=== PATIENT | female | born 1945 | race Caucasian/White ===

== ENCOUNTER → 2017-07-12 10:32 | Outpatient (CLI) | payer MEDICARE, SELFPAY ==
[2017-07-12 13:15] LABS: Absolute Lymphocyte Count 1.25 X10^3/ul (0.83-4.51); Basophil# 0.06 X10^3/uL; Eosinophil# 0.24 X10^3/uL; Hematocrit 39.4 % (37-47); Hemoglobin 12.8 g/dl (12.0-15.0); Lymphocyte # 1.25 X10^3/ul (4.0); Lymphocyte % 20.8 % (19-41); Mean Corp Hgb Conc 32.5 g/gl (32-36); Mean Corpuscular Hgb 28.5 pg (27.0-32.0); Mean Corpuscular Volume 87.8 fL (81-99); Mean Platelet Vol. 12.2 fl (6.2-12.0); Monocyte# 0.49 X10^3/uL; Monocyte% 8.1 % (0-10); Neutrophil # 3.97 X10^3/uL (2.7-7.7); Neutrophil % 65.9 % (47-70); Platelet Count 254 K/mm3 (150-450); RBC Distribution Width CV 15.1 % (11.6-14.6); RBC Distribution Width SD 47.8 fl (35.1-43.9); Red Blood Count 4.49 M/mm3 (4.2-5.4)
[2017-07-12 13:16] LABS: POSITIVE COUNT NO; POSITIVE DIFFERENTIAL NO; POSITIVE MORPHOLOGY NO
[2017-07-12 13:42] LABS: ALB/GLOB Ratio 0.9 RATIO (0.9-2.4); AST(SGOT) 50 U/L (15-37); Alanine Aminotransfer ALT/SGPT 43 U/L (12-78); Albumin, Serum 3.5 g/dL (3.4-5.0); Alkaline Phosphatase 98 U/L (45-117); Anion Gap 9 (5-15); BUN 20 mg/dL (7-18); BUN/Creat Ratio 23.4 RATIO (10-20); Calcium,Total 9.4 mg/dL (8.5-10.1); Chloride 105 mmol/L (98-107); Creatinine, Serum 0.86 mg/dL (0.55-1.02); EST Glomerular Filtration Rate 69 mL/min (>60); Est Glom Filt Rate - Afr Amer 84 mL/min (>60); Glucose 83 mg/dL (70-110); Potassium 3.6 mmol/L (3.5-5.1); Protein, Total 7.5 g/dL (6.4-8.2); Sodium Level 140 mmol/L (136-145); Thyroid Stim Hormone (TSH) 2.92 uIU/mL (0.358-3.74)
== END ==
PROVIDERS: Family Provider Family Medicine Geriatric Medicine; PCP Family Medicine Geriatric Medicine; Visit Provider Family Medicine Geriatric Medicine
DX: I10 Essential (primary) hypertension (principal)
CPT/HCPCS: 36415; 80053; 84443; 85025

== ENCOUNTER → 2017-08-08 09:14 | Outpatient (CLI) | payer MEDICARE, SELFPAY ==
--- NOTE | 2017-08-08 09:19 | HPBI_ITS ---
MAMMOGRAPHY - BILATERAL SCREENING REASON FOR EXAM: Female, 72 years old. Routine annual screening examination. PERTINENT HISTORY: Non-contributory. TECHNIQUE: Digital bilateral breast bao (3D mammographic acquisition) in the CC and MLO projections. 2-D mediolateral oblique (MLO) and craniocaudad (CC) views of both breasts were obtained. CAD: Full Field Digital Mammography with Computer Added Detection was performed. COMPARISON: Comparison is made with prior study dated August 08, 2016 and July 28, 2015. FINDINGS: Breast Composition: There are scattered areas of fibroglandular density. There are no dominant masses or suspicious calcifications. No other significant abnormalities are identified. There has been no significant change since the prior study. HPBI/SCREENING MAMM (CAD), BILAT IMPRESSION: Stable bilateral screening mammogram. Yearly follow-up mammogram recommended. (A) ASSESSMENT CATEGORY: BIRADS Category 1: Negative. A letter regarding these results will be sent to the patient by the facility within 30 days. Approximately 10% of breast cancers are not detected by mammography. A normal mammogram should not delay biopsy of a clinically suspicious abnormality. [id number] Electronically Signed: Stephane Yates MD at 10:49 EST Tel [phone], Service support ,
--- NOTE | 2017-08-08 09:20 | HPBD_ITS ---
STUDY: DUAL ENERGY X-RAY ABSORPTIOMETRY / DXA REASON FOR EXAM: Female, 72 years old. The patient is postmenopausal. Loss of height of 1.5 inches. TECHNIQUE: Bone Mineral Density (BMD) measurements of lumbar spine and bilateral hips were obtained. COMPARISON: Comparison is made with prior study dated December 03, 2001. FINDINGS: Lumbar Spine (L1-L4): g/cm2 (0.819) / T-score (-3.0) / Z-score (-1.3) Findings are suggestive of osteopenia with a high fracture risk. Increased thoracic kyphosis. Left Femur Total: g/cm2 (0.803) / T-score (-1.6) / Z-score (0.0) Left Femoral Neck: g/cm2 (0.777) / T-score (-1.9) / Z-score (0.0) Right Femur Total: g/cm2 (0.790) / T-score (-1.7) / Z-score (-0.1) Right Femoral Neck: g/cm2 (0.749) / T-score (-2.1) / Z-score (-0.3) The T-Scores on the most recent prior examination were: Lumbar Spine (L1-L4): There has been worsening of bone density since the previous examination. Left Femur Total: which represents a worsening of 3.8%. HPBD/Dexa Bone Density Study (HP) IMPRESSION: The patient is considered osteoporotic at the level of the lumbar spine as outlined below according to World Arnaldo Organization (WHO) criteria with a high fracture risk. There has been worsening of bone density since the previous examination. Reference Information: The T-score is the number of standard deviations above or below the standard which is normal for young adults at their peak bone mineral density. The World Health Organization (WHO) interprets the T-scores as follows: Above -1 Normal bone density Between -1 and -2.5 Osteopenia Equal to / or below -2.5 Osteoporosis As a practical clinical guideline, osteopenia may be graded as follows: Mild -1 through -1.5 Moderate -1.6 through -2.0 Severe -2.1 through -2.4 The Z-score is the number of standard deviations above or below age-matched controls. A Z-score of less than -1.5 would be considered abnormal. References: 1. NIH Osteoporosis and Related Bone Diseases http://www.osteo.org 2. International Society for Clinical Densitometry http://www.iscd.org 3. National Osteoporosis Foundation http://www.nof.org Electronically Signed: Stephane Yates MD at 9:51 EST Tel [phone], Service support ,
== END ==
PROVIDERS: Family Provider Family Medicine Geriatric Medicine; PCP Family Medicine Geriatric Medicine; Visit Provider Family Medicine Geriatric Medicine
DX: Z12.31 Encounter for screening mammogram for malignant neoplasm of breast (principal); Z78.0 Asymptomatic menopausal state; M81.0 Age-related osteoporosis without current pathological fracture
CPT/HCPCS: 77063; 77067; 77080

== ENCOUNTER → 2018-01-10 11:32 | Outpatient (CLI) | payer MEDICARE, SELFPAY ==
[2018-01-10 12:37] LABS: Absolute Lymphocyte Count 1.57 X10^3/ul (0.83-4.51); Absolute Neutrophil Count 4.6 X10^3/uL (2.0-7.7); Basophil# 0.03 X10^3/uL; Basophil% 0.4 % (0-1); Eosinophils% 1.5 % (0-5); Hematocrit 39.9 % (37-47); Hemoglobin 13.1 g/dl (12.0-15.0); Lymphocyte # 1.57 X10^3/ul (4.0); Lymphocyte % 23.1 % (19-41); Mean Corp Hgb Conc 32.8 g/gl (32-36); Mean Corpuscular Hgb 28.7 pg (27.0-32.0); Mean Corpuscular Volume 87.5 fL (81-99); Mean Platelet Vol. 11.8 fl (6.2-12.0); Monocyte# 0.48 X10^3/uL; Neutrophil # 4.62 X10^3/uL (2.7-7.7); Neutrophil % 67.9 % (47-70); POSITIVE COUNT NO; POSITIVE DIFFERENTIAL NO; POSITIVE MORPHOLOGY NO; Platelet Count 246 K/mm3 (150-450); RBC Distribution Width SD 47.8 fl (35.1-43.9); Red Blood Count 4.56 M/mm3 (4.2-5.4); White Blood Count 6.8 K/mm3 (4.4-11.0)
[2018-01-10 12:58] LABS: ALB/GLOB Ratio 0.8 RATIO (0.9-2.4); AST(SGOT) 45 U/L (15-37); Alanine Aminotransfer ALT/SGPT 33 U/L (13-56); Albumin, Serum 3.7 g/dL (3.2-5.0); Alkaline Phosphatase 98 U/L (45-117); Anion Gap 8 (5-15); BUN 23 mg/dL (7-18); BUN/Creat Ratio 23.3 RATIO (10-20); Calcium,Total 9.6 mg/dL (8.5-10.1); Chloride 103 mmol/L (98-107); Creatinine, Serum 0.99 mg/dL (0.55-1.02); EST Glomerular Filtration Rate 59 mL/min (>60); Est Glom Filt Rate - Afr Amer 71 mL/min (>60); Globulin 4.5 g/dL (2.2-4.2); Glucose 100 mg/dL (74-106); Potassium 3.7 mmol/L (3.5-5.1); Protein, Total 8.2 g/dL (6.4-8.2); Sodium Level 141 mmol/L (136-145); Thyroid Stim Hormone (TSH) 2.37 uIU/mL (0.358-3.74)
[2018-01-11 10:16] LABS: Vitamin D,25 Hydroxy 40.1 ng/mL (29.95-100.01)
[2018-01-12 09:25] LABS: Hep C Antibodies 0.2 s/co ratio (0.0-0.9)
== END ==
PROVIDERS: Family Provider Family Medicine Geriatric Medicine; PCP Family Medicine Geriatric Medicine; Visit Provider Family Medicine Geriatric Medicine
DX: E11.9 Type 2 diabetes mellitus without complications (principal); I10 Essential (primary) hypertension; E55.9 Vitamin D deficiency, unspecified
CPT/HCPCS: 36415; 80053; 82306; 84443; 85025; 86803

== ENCOUNTER → 2018-07-11 11:07 | Outpatient (CLI) | payer MEDICARE, SELFPAY ==
[2018-07-11 12:46] LABS: Absolute Lymphocyte Count 1.26 X10^3/ul (0.83-4.51); Absolute Neutrophil Count 3.2 X10^3/uL (2.0-7.7); Basophil# 0.03 X10^3/uL; Basophil% 0.6 % (0-1); Eosinophil# 0.15 X10^3/uL; Eosinophils% 2.9 % (0-5); Hematocrit 39.3 % (37-47); Hemoglobin 12.7 g/dl (12.0-15.0); Lymphocyte # 1.26 X10^3/ul (4.0); Lymphocyte % 24.3 % (19-41); Mean Corp Hgb Conc 32.3 g/gl (32-36); Mean Corpuscular Hgb 28.7 pg (27.0-32.0); Mean Corpuscular Volume 88.7 fL (81-99); Mean Platelet Vol. 12.2 fl (6.2-12.0); Monocyte# 0.53 X10^3/uL; Monocyte% 10.2 % (0-10); Neutrophil % 61.8 % (47-70); Platelet Count 230 K/mm3 (150-450); RBC Distribution Width CV 15.1 % (11.6-14.6); RBC Distribution Width SD 49.1 fl (35.1-43.9); Red Blood Count 4.43 M/mm3 (4.2-5.4); White Blood Count 5.2 K/mm3 (4.4-11.0)
[2018-07-11 12:49] LABS: POSITIVE COUNT NO; POSITIVE DIFFERENTIAL NO; POSITIVE MORPHOLOGY NO
[2018-07-11 12:56] LABS: Vitamin D,25 Hydroxy 41.1 ng/mL (29.95-100.01)
[2018-07-11 13:03] LABS: ALB/GLOB Ratio 0.9 RATIO (0.9-2.4); AST(SGOT) 34 U/L (15-37); Alanine Aminotransfer ALT/SGPT 32 U/L (13-56); Albumin, Serum 3.7 g/dL (3.2-5.0); Alkaline Phosphatase 84 U/L (45-117); Anion Gap 10 (5-15); BUN 18 mg/dL (7-18); Calcium,Total 9.5 mg/dL (8.5-10.1); Chloride 107 mmol/L (98-107); Creatinine, Serum 0.86 mg/dL (0.55-1.02); EST Glomerular Filtration Rate 69 mL/min (>60); Est Glom Filt Rate - Afr Amer 83 mL/min (>60); Globulin 3.9 g/dL (2.2-4.2); Glucose 80 mg/dL (74-106); Potassium 3.5 mmol/L (3.5-5.1); Protein, Total 7.6 g/dL (6.4-8.2); Sodium Level 141 mmol/L (136-145); Thyroid Stim Hormone (TSH) 2.98 uIU/mL (0.358-3.74)
== END ==
PROVIDERS: Family Provider Family Medicine Geriatric Medicine; PCP Family Medicine Geriatric Medicine; Visit Provider Family Medicine Geriatric Medicine
DX: I10 Essential (primary) hypertension (principal); E55.9 Vitamin D deficiency, unspecified
CPT/HCPCS: 36415; 80053; 82306; 84443; 85025

== ENCOUNTER → 2018-08-30 10:22 | Outpatient (CLI) | payer MEDICARE, SELFPAY ==
[2017-11-09 08:06] VITALS: BMI 25.4
--- NOTE | 2018-08-30 10:26 | BI_ITS ---
MAMMOGRAPHY - BILATERAL SCREENING REASON FOR EXAM: Female, 73 years old. Routine annual screening examination. PERTINENT HISTORY: Non-contributory. TECHNIQUE: Digital bilateral breast bao (3D mammographic acquisition) in the CC and MLO projections. 2-D mediolateral oblique (MLO) and craniocaudad (CC) views of both breasts were obtained. CAD: Full Field Digital Mammography with Computer Added Detection was performed. COMPARISON: Comparison is made with prior study dated August 08, 2017 and August 08, 2016. FINDINGS: Breast Composition: There are scattered areas of fibroglandular density. There are no dominant masses or suspicious calcifications. No other significant abnormalities are identified. There has been no significant change since the prior study. BI/SCREENING MAMM (CAD), BILAT IMPRESSION: Stable bilateral screening mammogram. Yearly follow-up mammogram recommended. (A) ASSESSMENT CATEGORY: BIRADS Category 1: Negative. A letter regarding these results will be sent to the patient by the facility within 30 days. Approximately 10% of breast cancers are not detected by mammography. A normal mammogram should not delay biopsy of a clinically suspicious abnormality. [id number] Electronically Signed: Stephane Yates, at 14:11 EDT , Service support ,
== END ==
PROVIDERS: Family Provider Family Medicine Geriatric Medicine; PCP Family Medicine Geriatric Medicine; Referring Provider Family Medicine Geriatric Medicine; Visit Provider Family Medicine Geriatric Medicine
DX: Z12.31 Encounter for screening mammogram for malignant neoplasm of breast (principal)
CPT/HCPCS: 77063; 77067

== ENCOUNTER → 2018-11-20 12:08 | Outpatient (CLI) | payer MEDICARE, SELFPAY ==
[2018-11-13 10:12] VITALS: BMI 25.4
--- NOTE | 2018-11-20 12:13 | RAD_ITS ---
STUDY: X-RAY - ABDOMEN/PELVIS REASON FOR EXAM: Female, 73 years old. Fecal impaction. TECHNIQUE: AP supine and upright views of the abdomen and pelvis. COMPARISON: 01/25/2016. FINDINGS: Normal visualized lung bases. Air-filled loops of both large and small bowel are seen. Some of the small bowel loops are dilated beyond normal limits to approximately 3.5 cm. The findings could be related to ileus but obstruction is also possible. Correlate clinically and consider follow-up. No air-fluid levels. No free air. The visualized liver, spleen and kidneys are grossly normal in size and morphology. Normal soft tissue structures. Normal visualized osseous structures. RAD/Abd Inc Decub and/or Erect IMPRESSION: Abnormal bowel gas pattern. Mild to moderate distention of small bowel loops. Findings could be ileus or obstruction. Electronically Signed: Sumit Jade MD at 23:04 EDT , Service support ,
== END ==
PROVIDERS: Family Provider Family Medicine Geriatric Medicine; PCP Family Medicine Geriatric Medicine; Referring Provider Family Medicine Geriatric Medicine; Visit Provider Family Medicine Geriatric Medicine
DX: K56.41 Fecal impaction (principal)
CPT/HCPCS: 74019

== ENCOUNTER → 2019-01-16 09:26 | Outpatient (CLI) | payer MEDICARE, SELFPAY ==
[2018-11-13 10:12] VITALS: BMI 25.4
[2019-01-16 13:14] LABS: Absolute Lymphocyte Count 1.52 X10^3/uL (0.83-4.51); Absolute Neutrophil Count 4.4 X10^3/uL (2.0-7.7); Basophil# 0.05 X10^3/uL; Basophil% 0.8 % (0-1); Eosinophil# 0.12 X10^3/uL; Eosinophils% 1.8 % (0-5); Hematocrit 40.3 % (37-47); Hemoglobin 13.2 g/dL (12.0-15.0); Lymphocyte # 1.52 X10^3/ul (4.0); Lymphocyte % 23.4 % (19-41); Mean Corp Hgb Conc 32.8 g/dL (32-36); Mean Corpuscular Hgb 29.1 pg (27.0-32.0); Mean Platelet Vol. 12.2 fl (6.2-12.0); Monocyte% 6.2 % (0-10); NRBC Flagged by Analyzer 0 % (0-5); Neutrophil # 4.38 X10^3/uL (2.7-7.7); Neutrophil % 67.5 % (47-70); Platelet Count 222 K/mm3 (150-450); RBC Distribution Width CV 14.3 % (11.6-14.6); RBC Distribution Width SD 46.6 fl (35.1-43.9); Red Blood Count 4.53 M/mm3 (4.2-5.4); White Blood Count 6.5 K/mm3 (4.4-11.0)
[2019-01-16 13:34] LABS: Vitamin D,25 Hydroxy 46.6 ng/mL (29.95-100.01)
[2019-01-16 13:38] LABS: ALB/GLOB Ratio 0.9 RATIO (0.9-2.4); AST(SGOT) 29 U/L (15-37); Alanine Aminotransfer ALT/SGPT 24 U/L (13-56); Albumin, Serum 3.7 g/dL (3.2-5.0); Alkaline Phosphatase 86 U/L (45-117); Anion Gap 6 (5-15); BUN 17 mg/dL (7-18); Calcium,Total 9.6 mg/dL (8.5-10.1); Chloride 104 mmol/L (98-107); Creatinine, Serum 0.94 mg/dL (0.55-1.02); EST Glomerular Filtration Rate 62 mL/min (>60); Est Glom Filt Rate - Afr Amer 75 mL/min (>60); Globulin 4.1 g/dL (2.2-4.2); Glucose 91 mg/dL (74-106); Potassium 3.9 mmol/L (3.5-5.1); Protein, Total 7.8 g/dL (6.4-8.2); Sodium Level 139 mmol/L (136-145)
== END ==
PROVIDERS: Family Provider Family Medicine Geriatric Medicine; PCP Family Medicine Geriatric Medicine; Visit Provider Family Medicine Geriatric Medicine
DX: I10 Essential (primary) hypertension (principal); E55.9 Vitamin D deficiency, unspecified
CPT/HCPCS: 36415; 80053; 82306; 84443; 85025

== ENCOUNTER → 2019-07-17 09:52 | Outpatient (CLI) | payer MEDICARE, SELFPAY ==
[2018-11-13 10:12] VITALS: BMI 25.4
[2019-07-17 12:26] LABS: Absolute Lymphocyte Count 1.39 X10^3/uL (0.83-4.51); Absolute Neutrophil Count 3.1 X10^3/uL (2.0-7.7); Basophil# 0.07 X10^3/uL; Basophil% 1.3 % (0-1); Eosinophil# 0.28 X10^3/uL; Eosinophils% 5.2 % (0-5); Hematocrit 38.7 % (37-47); Hemoglobin 12.5 g/dL (12.0-15.0); Lymphocyte # 1.39 X10^3/ul (4.0); Lymphocyte % 25.9 % (19-41); Mean Corp Hgb Conc 32.3 g/dL (32-36); Mean Corpuscular Hgb 28.1 pg (27.0-32.0); Mean Platelet Vol. 12.1 fl (6.2-12.0); Monocyte# 0.48 X10^3/uL; NRBC Flagged by Analyzer 0 % (0-5); Neutrophil # 3.13 X10^3/uL (2.7-7.7); Neutrophil % 58.4 % (47-70); Platelet Count 228 K/mm3 (150-450); RBC Distribution Width CV 14.8 % (11.6-14.6); RBC Distribution Width SD 47.2 fl (35.1-43.9); Red Blood Count 4.45 M/mm3 (4.2-5.4); White Blood Count 5.4 K/mm3 (4.4-11.0)
[2019-07-17 12:48] LABS: Vitamin D,25 Hydroxy 37.2 ng/mL (29.95-100.01)
[2019-07-17 13:01] LABS: ALB/GLOB Ratio 0.9 RATIO (0.9-2.4); AST(SGOT) 35 U/L (15-37); Alanine Aminotransfer ALT/SGPT 29 U/L (13-56); Albumin, Serum 3.6 g/dL (3.2-5.0); Alkaline Phosphatase 79 U/L (45-117); Anion Gap 8 (5-15); BUN 23 mg/dL (7-18); BUN/Creat Ratio 25.3 RATIO (10-20); Calcium,Total 9.3 mg/dL (8.5-10.1); Chloride 105 mmol/L (98-107); Creatinine, Serum 0.91 mg/dL (0.55-1.02); EST Glomerular Filtration Rate 64 mL/min (>60); Est Glom Filt Rate - Afr Amer 78 mL/min (>60); Globulin 4.2 g/dL (2.2-4.2); Glucose 92 mg/dL (74-106); Potassium 3.4 mmol/L (3.5-5.1); Protein, Total 7.8 g/dL (6.4-8.2); Sodium Level 139 mmol/L (136-145); Thyroid Stim Hormone (TSH) 2.32 uIU/mL (0.358-3.74)
== END ==
PROVIDERS: PCP Family Medicine Geriatric Medicine; Visit Provider Family Medicine Geriatric Medicine
DX: E55.9 Vitamin D deficiency, unspecified (principal); I10 Essential (primary) hypertension
CPT/HCPCS: 36415; 80053; 82306; 84443; 85025

== ENCOUNTER → 2019-07-28 09:24 | Outpatient (CLI) | payer MEDICARE, SELFPAY ==
[2018-11-13 10:12] VITALS: BMI 25.4
[2019-07-28 12:24] LABS: Anion Gap 7 (5-15); BUN 21 mg/dL (7-18); BUN/Creat Ratio 19.8 RATIO (10-20); Calcium,Total 9.9 mg/dL (8.5-10.1); Chloride 103 mmol/L (98-107); Creatinine, Serum 1.06 mg/dL (0.55-1.02); EST Glomerular Filtration Rate 54 mL/min (>60); Est Glom Filt Rate - Afr Amer 65 mL/min (>60); Glucose 94 mg/dL (74-106); Sodium Level 138 mmol/L (136-145)
== END ==
PROVIDERS: PCP Family Medicine Geriatric Medicine; Visit Provider Family Medicine Geriatric Medicine
DX: E87.6 Hypokalemia (principal)
CPT/HCPCS: 36415; 80048

== ENCOUNTER → 2019-09-01 09:46 | Outpatient (CLI) | payer MEDICARE, SELFPAY ==
[2018-11-13 10:12] VITALS: BMI 25.4
--- NOTE | 2019-09-01 09:46 | BI_ITS ---
MAMMOGRAPHY - BILATERAL SCREENING REASON FOR EXAM: Female, 74 years old. Routine annual screening examination. PERTINENT HISTORY: Non-contributory. TECHNIQUE: Digital bilateral breast [place] (3D mammographic acquisition) in the CC and MLO projections. 2-D mediolateral oblique (MLO) and craniocaudad (CC) views of both breasts were obtained. CAD: Full Field Digital Mammography with Computer Added Detection was performed. COMPARISON: Comparison is made with prior mammogram dated August 30, 2018 and August 08, 2017. FINDINGS: Breast Composition: There are scattered areas of fibroglandular density. There are no dominant masses or suspicious calcifications. No other significant abnormalities are identified. There has been no significant change since the prior study. BI/SCREEN MAMM (CAD) W/[place] BILAT IMPRESSION: Stable bilateral screening mammogram. Yearly follow-up mammogram recommended. (A) ASSESSMENT CATEGORY: BIRADS Category 1: Negative. A letter regarding these results will be sent to the patient by the facility within 30 days. Approximately 10% of breast cancers are not detected by mammography. A normal mammogram should not delay biopsy of a clinically suspicious abnormality. [id number] Electronically Signed: Stephane Yates, at 11:23 EDT , Service support ,
== END ==
PROVIDERS: Family Provider Family Medicine Geriatric Medicine; PCP Family Medicine Geriatric Medicine; Referring Provider Nurse Practitioner Women's Health; Visit Provider Nurse Practitioner Women's Health
DX: Z12.31 Encounter for screening mammogram for malignant neoplasm of breast (principal)
CPT/HCPCS: 77063; 77067

== ENCOUNTER → 2019-11-11 17:16 | Outpatient (CLI) | payer MEDICARE, SELFPAY ==
[2018-11-13 10:12] VITALS: BMI 25.4
--- NOTE | 2019-11-11 17:29 | RAD_ITS ---
STUDY: X-RAY - RIGHT SHOULDER REASON FOR EXAM: Female, 74 years old. Right shoulder pain for 2 months. Fall down stairs 4 years ago tearing rotator cuff. No surgery. TECHNIQUE: 4 view(s) of the shoulder. COMPARISON: None. FINDINGS: Normal glenohumeral articulation. Normal acromioclavicular joint. Normal acromion. Mild degenerative changes superior lateral aspect humeral head stable since the prior study. Faint linear density within the superior aspect of the shoulder joint is now present suggestive of calcific tendinitis. The soft tissue structures are unremarkable. Normal visualized pulmonary apex. RAD/Shoulder min 2 Views IMPRESSION: Mild degenerative changes of the right shoulder. New calcific tendinitis. Electronically Signed: Daniel Saucedo MD at 4:25 EDT , Service support ,
== END ==
PROVIDERS: PCP Family Medicine Geriatric Medicine; Referring Provider Family Medicine Geriatric Medicine; Visit Provider Family Medicine Geriatric Medicine
DX: M25.511 Pain in right shoulder (principal)
CPT/HCPCS: 73030

== ENCOUNTER → 2020-01-22 09:11 | Outpatient (CLI) | payer MEDICARE, SELFPAY ==
[2019-11-17 09:57] VITALS: BMI 25.4
[2020-01-22 12:28] LABS: Absolute Lymphocyte Count 1.28 X10^3/uL (0.83-4.51); Absolute Neutrophil Count 4.3 X10^3/uL (2.0-7.7); Basophil# 0.08 X10^3/uL; Basophil% 1.2 % (0-1); Eosinophil# 0.29 X10^3/uL; Eosinophils% 4.5 % (0-5); Hematocrit 40.2 % (37-47); Hemoglobin 12.8 g/dL (12.0-15.0); Lymphocyte # 1.28 X10^3/ul (4.0); Lymphocyte % 19.7 % (19-41); Mean Corp Hgb Conc 31.8 g/dL (32-36); Mean Corpuscular Hgb 28.8 pg (27.0-32.0); Mean Corpuscular Volume 90.5 fL (81-99); Mean Platelet Vol. 12.4 fl (6.2-12.0); Monocyte# 0.51 X10^3/uL; Monocyte% 7.9 % (0-10); NRBC Flagged by Analyzer 0 % (0-5); Neutrophil # 4.31 X10^3/uL (2.7-7.7); Neutrophil % 66.4 % (47-70); Platelet Count 227 K/mm3 (150-450); RBC Distribution Width CV 14.9 % (11.6-14.6); RBC Distribution Width SD 48.6 fl (35.1-43.9); Red Blood Count 4.44 M/mm3 (4.2-5.4); White Blood Count 6.5 K/mm3 (4.4-11.0)
[2020-01-22 12:33] LABS: Vitamin D,25 Hydroxy 52.4 ng/mL
[2020-01-22 12:39] LABS: ALB/GLOB Ratio 0.9 RATIO (0.9-2.4); AST(SGOT) 25 U/L (15-37); Alanine Aminotransfer ALT/SGPT 21 U/L (13-56); Albumin, Serum 3.7 g/dL (3.2-5.0); Alkaline Phosphatase 77 U/L (45-117); Anion Gap 5 (5-15); BUN 16 mg/dL (7-18); BUN/Creat Ratio 18.8 RATIO (10-20); Calcium,Total 9.4 mg/dL (8.5-10.1); Chloride 105 mmol/L (98-107); Creatinine, Serum 0.85 mg/dL (0.55-1.02); EST Glomerular Filtration Rate 69 mL/min (>60); Est Glom Filt Rate - Afr Amer 83 mL/min (>60); Glucose 99 mg/dL (74-106); Potassium 3.3 mmol/L (3.5-5.1); Protein, Total 7.7 g/dL (6.4-8.2); Sodium Level 140 mmol/L (136-145); Thyroid Stim Hormone (TSH) 1.98 uIU/mL (0.358-3.74)
== END ==
PROVIDERS: PCP Family Medicine Geriatric Medicine; Visit Provider Family Medicine Geriatric Medicine
DX: E55.9 Vitamin D deficiency, unspecified (principal); I10 Essential (primary) hypertension
CPT/HCPCS: 36415; 80053; 82306; 84443; 85025

== ENCOUNTER → 2020-02-03 11:12 | Outpatient (CLI) | payer MEDICARE, SELFPAY ==
[2019-11-17 09:57] VITALS: BMI 25.4
[2020-02-03 12:37] LABS: Anion Gap 5 (5-15); BUN 18 mg/dL (7-18); BUN/Creat Ratio 19.8 RATIO (10-20); Calcium,Total 9.4 mg/dL (8.5-10.1); Chloride 105 mmol/L (98-107); Creatinine, Serum 0.91 mg/dL (0.55-1.02); EST Glomerular Filtration Rate 64 mL/min (>60); Est Glom Filt Rate - Afr Amer 77 mL/min (>60); Glucose 95 mg/dL (74-106); Potassium 3.9 mmol/L (3.5-5.1); Sodium Level 138 mmol/L (136-145)
== END ==
PROVIDERS: PCP Family Medicine Geriatric Medicine; Visit Provider Family Medicine Geriatric Medicine
DX: E87.6 Hypokalemia (principal)
CPT/HCPCS: 36415; 80048

== ENCOUNTER → 2020-06-28 16:06 | Outpatient (CLI) | payer MEDICARE, SELFPAY ==
[2019-11-17 09:57] VITALS: BMI 25.4
--- NOTE | 2020-06-28 16:09 | RAD_ITS ---
STUDY: X-RAY - UNILATERAL RIBS ( RIGHT ) WITH CHEST REASON FOR EXAM: Female, 75 years old. Rt side pain. No known injury. TECHNIQUE - RIBS: 2 view(s) of the ribs. TECHNIQUE - CHEST: Single PA view of the chest. COMPARISON: None. FINDINGS - RIBS: Normal visualized ribs without a demonstrated fracture. FINDINGS - CHEST: The lungs are clear and expanded. There is no demonstrated pleural abnormality. Normal size heart. Normal mediastinum and florence. Normal visualized pulmonary arteries. Normal visualized aortic arch and descending thoracic aorta. Normal visualized thoracic spine. Normal visualized ribs, clavicles, and shoulders. There is no demonstrated abnormality of the visualized soft tissue structures of the upper abdomen. RAD/Ribs Uni Min 3V w/PA Chest IMPRESSION: RIBS: Normal x-ray examination of the ribs. CHEST: Normal x-ray examination of the chest. Electronically Signed: Jonny Ha MD at 9:05 EST Tel , Service support ,
--- NOTE | 2020-06-28 16:09 | RAD_ITS ---
STUDY: X-RAY - RIGHT SHOULDER REASON FOR EXAM: Female, 75 years old. Rt shoulder pain. No known injury. TECHNIQUE: 4 view(s) of the shoulder. COMPARISON: 11/11/2019 FINDINGS: Normal glenohumeral articulation. Normal acromioclavicular joint. Normal acromion. Normal humeral head and visualized proximal humerus. The soft tissue structures are unremarkable. Normal visualized pulmonary apex. RAD/Shoulder min 2 Views IMPRESSION: Normal x-ray examination of the shoulder. Electronically Signed: Jonny Ha MD at 9:07 EST Tel , Service support ,
== END ==
PROVIDERS: PCP Family Medicine Geriatric Medicine; Referring Provider Family Medicine Geriatric Medicine; Visit Provider Family Medicine Geriatric Medicine
DX: M25.511 Pain in right shoulder (principal); R10.9 Unspecified abdominal pain
CPT/HCPCS: 71101; 73030

== ENCOUNTER → 2020-07-22 11:22 | Outpatient (CLI) | payer MEDICARE, SELFPAY ==
[2019-11-17 09:57] VITALS: BMI 25.4
--- NOTE | 2020-07-22 11:35 | RAD_ITS ---
HISTORY: Fecal impaction for one week. Findings: The abdomen: Previous imaging of the abdomen is from November 30, 2018. A small focus of gas and minimal stool are present within the rectum consistent with absence of fecal impaction. The rectum is not distended with stool. There is minimal stool within the rectum. Air-fluid levels are present within some jejunal loops of small bowel within the upper left abdomen. These loops of bowel are not pathologically distended. Lung bases are clear. No acute osseous abnormality is perceived. Hyperostosis and facet arthropathy are present at the lower lumbar spine. RAD/Abd Inc Decub and/or Erect IMPRESSION: No fecal impaction. No abnormal bowel distention. No pneumatosis or free air. at 2221 Reported and signed by: Napoleon Vazquez MD Electronically Signed: Napoleon Vazquez MD at 22:19 EST Tel , Service support ,
[2020-07-22 12:08] LABS: Absolute Lymphocyte Count 1.12 X10^3/uL (0.83-4.51); Absolute Neutrophil Count 5.9 X10^3/uL (2.0-7.7); Basophil# 0.08 X10^3/uL; Eosinophil# 0.26 X10^3/uL; Eosinophils% 3.3 % (0-5); Hematocrit 39.2 % (37-47); Hemoglobin 12.8 g/dL (12.0-15.0); Lymphocyte # 1.12 X10^3/ul (4.0); Lymphocyte % 14.2 % (19-41); Mean Corp Hgb Conc 32.7 g/dL (32-36); Mean Corpuscular Hgb 29.6 pg (27.0-32.0); Mean Corpuscular Volume 90.7 fL (81-99); Monocyte# 0.52 X10^3/uL; Monocyte% 6.6 % (0-10); NRBC Flagged by Analyzer 0 % (0-5); Neutrophil # 5.85 X10^3/uL (2.7-7.7); Neutrophil % 74.5 % (47-70); Platelet Count 272 K/mm3 (150-450); RBC Distribution Width CV 14.2 % (11.6-14.6); RBC Distribution Width SD 47.9 fl (35.1-43.9); Red Blood Count 4.32 M/mm3 (4.2-5.4); White Blood Count 7.9 K/mm3 (4.4-11.0)
[2020-07-22 12:30] LABS: ALB/GLOB Ratio 0.9 RATIO (0.9-2.4); AST(SGOT) 33 U/L (15-37); Alanine Aminotransfer ALT/SGPT 31 U/L (13-56); Albumin, Serum 3.7 g/dL (3.2-5.0); Alkaline Phosphatase 80 U/L (45-117); Anion Gap 9 (5-15); BUN 22 mg/dL (7-18); BUN/Creat Ratio 18.5 RATIO (10-20); Calcium,Total 9.8 mg/dL (8.5-10.1); Chloride 104 mmol/L (98-107); Creatinine, Serum 1.19 mg/dL (0.55-1.02); EST Glomerular Filtration Rate 47 mL/min (>60); Est Glom Filt Rate - Afr Amer 57 mL/min (>60); Globulin 4.1 g/dL (2.2-4.2); Glucose 105 mg/dL (74-106); Potassium 3.4 mmol/L (3.5-5.1); Protein, Total 7.8 g/dL (6.4-8.2); Sodium Level 138 mmol/L (136-145); Thyroid Stim Hormone (TSH) 2.51 uIU/mL (0.358-3.74)
== END ==
PROVIDERS: PCP Family Medicine Geriatric Medicine; Referring Provider Family Medicine Geriatric Medicine; Visit Provider Family Medicine Geriatric Medicine
DX: I10 Essential (primary) hypertension (principal); E55.9 Vitamin D deficiency, unspecified; N39.0 Urinary tract infection, site not specified; K56.41 Fecal impaction
CPT/HCPCS: 36415; 74019; 80053; 82306; 84443; 85025; 87077; 87086; 87088; 87186

== ENCOUNTER 2020-07-25 13:46 | Emergency (ER) | payer MEDICARE, SELFPAY ==
[2019-11-17 09:57] VITALS: BMI 25.4
[2020-07-25 13:47] VITALS: BP 173/76; PULSE 102; RESP 18; TEMP 36.9; O2SAT 99; BMI 27.0
--- NOTE | 2020-07-25 14:13 | RAD_ITS ---
STUDY: X-RAY CHEST REASON FOR EXAM: Female, 75 years old. cough TECHNIQUE: AP COMPARISON: 06/28/2020 FINDINGS: There is elevation left hemidiaphragm, stable. No airspace consolidation. There is no demonstrated pleural abnormality. Normal size heart. Normal mediastinum and florence. Normal visualized pulmonary arteries. Normal visualized aortic arch and descending thoracic aorta. Normal visualized thoracic spine. Normal visualized ribs, clavicles, and shoulders. There is no demonstrated abnormality of the visualized soft tissue structures of the upper abdomen. RAD/Chest 1 View (Portable) IMPRESSION: Stable, nonacute portable x-ray examination of the chest. Electronically Signed: Rajendra Martinez MD ([place]) at 15:01 EST , Service support ,
--- NOTE | 2020-07-25 14:13 | EKG12_ITS ---
Test Reason : N/V Blood Pressure : / mmHG Vent. Rate : 088 BPM Atrial Rate : 088 BPM P-R Int : 166 ms QRS Dur : 078 ms QT Int : 352 ms P-R-T Axes : 022 -71 003 degrees QTc Int : 425 ms Sinus rhythm with Premature supraventricular complexes Left anterior fascicular block Inferior infarct , age undetermined Abnormal ECG Confirmed by CORINNE FERRARO, CHRISTOPHE ([id number]), scientific editor FAUSTINO KELLY ([id number]) on 07/27/2020 8:24:41 AM Referred By: ATIF Confirmed By:CHRISTOPHE SUN MD
--- NOTE | 2020-07-25 14:20 | ED.DCSUM_ITS ---
- ER Visit Summary Date of Service: 07/25/20 Chief Complaint: Nausea, diarrhea History of Present Illness: The patient is a 75 F presenting with nausea, diarrhea. She states this started approximately 1 week ago. She was seen by her primary care physician and started on Cipro for UTI. She states her symp toms have not improved. She complains of mild diffuse abdominal cramping, nausea. She has had diarrhea several times per day. She denies blood in her stool. She has urinary frequency, denies dysuria. Denies fever. Denies chest pain or shortness of breath. She has myalgias. Denies known exposure to Covid. Physical Examination: Vitals are stable. Patient is afebrile. Alert no acute distress. HEENT exam is unremarkable. Neck is supple. Lungs are clear and equal bilaterally. Heart is regular rate and rhythm. Abdomen is soft nontender nondistended. No guarding or rebound Extremities are unremarkable. Skin is warm and dry. No focal neurologic deficit. Remainder of exam is unremarkable. Emergency Department Course and Treatment: She was given IV fluids, Zofran. EKG is sinus rhythm rate of 88 with no acute ischemic changes. CBC, chemistries unremarkable other than potassium 3.2, BUN 26, creatinine 1.29. Liver lipase are normal. Troponin is negative. Lactic acid normal. Urinalysis shows 0 white blood cells, 0 red blood cells. Stool cultures were sent. Chest x-ray read by myself and radiology shows no acute process. Covid negative. On reevaluation, patient is feeling improved. She is able to tolerate p.o. in the emergency department. She feels well enough to go home and declines admission. She will follow-up with her primary care physician. Her stool studies are pending. She is advised to return to the ED for worsening complaints. Disposition: Discharge home Impression: Nausea, diarrhea This note was generated with [employer] dictation software. It may contain incorrect words, spelling, and punctuation that were not noted in review of the chart prior to signing ED Disposition - Plan for ED Patient: Referrals: Calos Morrison Chi, MD [Primary Care Provider] -
[2020-07-25] MEDS: Ondansetron 4 MG/2 ML Vial IV (14:32)
[2020-07-25] MEDS: 0.9% Normal Saline 1,000 ML 1000 ML IV (14:33)
[2020-07-25 14:34] LABS: Absolute Lymphocyte Count 0.92 X10^3/uL (0.83-4.51); Absolute Neutrophil Count 4.8 X10^3/uL (2.0-7.7); Basophil# 0.04 X10^3/uL; Basophil% 0.6 % (0-1); Eosinophil# 0.24 X10^3/uL; Eosinophils% 3.7 % (0-5); Hematocrit 38.6 % (37-47); Hemoglobin 12.4 g/dL (12.0-15.0); Lymphocyte # 0.92 X10^3/ul (4.0); Lymphocyte % 14.1 % (19-41); Mean Corp Hgb Conc 32.1 g/dL (32-36); Mean Corpuscular Hgb 29.1 pg (27.0-32.0); Mean Corpuscular Volume 90.6 fL (81-99); Mean Platelet Vol. 10.5 fl (6.2-12.0); Monocyte# 0.48 X10^3/uL; Monocyte% 7.4 % (0-10); NRBC Flagged by Analyzer 0 % (0-5); Neutrophil # 4.82 X10^3/uL (2.7-7.7); Neutrophil % 73.9 % (47-70); Platelet Count 238 K/mm3 (150-450); RBC Distribution Width CV 14.1 % (11.6-14.6); Red Blood Count 4.26 M/mm3 (4.2-5.4); White Blood Count 6.5 K/mm3 (4.4-11.0)
[2020-07-25 14:53] LABS: AST(SGOT) 28 U/L (15-37); Alanine Aminotransfer ALT/SGPT 25 U/L (13-56); Albumin, Serum 3.6 g/dL (3.2-5.0); Alkaline Phosphatase 72 U/L (45-117); Anion Gap 10 (5-15); BUN 26 mg/dL (7-18); BUN/Creat Ratio 20.2 RATIO (10-20); Calcium,Total 9.7 mg/dL (8.5-10.1); Chloride 103 mmol/L (98-107); Creatinine, Serum 1.29 mg/dL (0.55-1.02); EST Glomerular Filtration Rate 43 mL/min (>60); Est Glom Filt Rate - Afr Amer 52 mL/min (>60); Estimated Creatinine Clearance 30.69 ml/min; Globulin 3.7 g/dL (2.2-4.2); Glucose 106 mg/dL (74-106); Lipase 70 U/L (73-393); Potassium 3.2 mmol/L (3.5-5.1); Protein, Total 7.3 g/dL (6.4-8.2); Sodium Level 140 mmol/L (136-145)
[2020-07-25 14:55] LABS: Lactic Acid 1.1 mmol/L (0.4-1.9)
[2020-07-25 15:20] LABS: Bacteria 0 SEEN /hpf (None Seen); Mucous, Urine 0 SEEN /hpf (<or=2+); Red Blood Cells-Urine 0 SEEN /hpf (0-5); Squamous Epithelial Cells - UA 0 SEEN /hpf (5-10); White Blood Cells 0 SEEN /hpf (0-5)
[2020-07-25 15:31] LABS: Color, Urine Yellow (Yellow); Glucose, Dipstick Normal (Normal); Ketone-Dipstick 15 mg/dl (Negative); Leukocyte Esterase-Dipstick Negative /ul (Negative); Nitrite-Dipstick Negative (Negative); Occult Blood-Urine Negative /ul (Negative); Protein-Dipstick Negative (Negative); Urine Bilirubin Dipstick Negative (Negative); Urine Clarity Clear (Clear); Urine Urobilinogen Normal (Normal)
--- NOTE | 2020-07-25 16:10 | ED.DEP ---
ED Disposition - Plan for ED Patient: Instructions: ED Vomiting and Diarrhea ... Prescriptions: Ondansetron [Zofran Odt] 4 mg PO Q8H PRN PRN #10 tab PRN Reason: Nausea Prescription Printed Referrals: Calos Morrison Chi, MD [Primary Care Provider] -
[2020-07-25 16:26] VITALS: BP 147/84; PULSE 71; RESP 16; O2SAT 98
== END 2020-07-25 16:28 | disposition home or self-care (01) ==
LOC: ED 14:37
PROVIDERS: Emergency Provider Emergency Medicine; PCP Family Medicine Geriatric Medicine
DX: R11.0 Nausea (principal); R19.7 Diarrhea, unspecified; I10 Essential (primary) hypertension
CPT/HCPCS: 71045; 80053; 81001; 83605; 83690; 84484; 85025; 87426; 87493; 87506; 93005; 96361; 96374; 99284; J7030; A4216; J2405

== ENCOUNTER → 2020-08-03 15:16 | Outpatient (CLI) | payer MEDICARE, SELFPAY ==
[2020-07-25 13:47] VITALS: BMI 27.0
[2020-08-03 16:05] LABS: Anion Gap 8 (5-15); BUN 25 mg/dL (7-18); BUN/Creat Ratio 18.2 RATIO (10-20); Calcium,Total 9.4 mg/dL (8.5-10.1); Chloride 104 mmol/L (98-107); Creatinine, Serum 1.37 mg/dL (0.55-1.02); EST Glomerular Filtration Rate 40 mL/min (>60); Est Glom Filt Rate - Afr Amer 48 mL/min (>60); Glucose 96 mg/dL (74-106); Potassium 3.2 mmol/L (3.5-5.1); Sodium Level 137 mmol/L (136-145)
== END ==
PROVIDERS: PCP Family Medicine Geriatric Medicine; Referring Provider Family Medicine Geriatric Medicine; Visit Provider Family Medicine Geriatric Medicine
DX: I10 Essential (primary) hypertension (principal); N39.0 Urinary tract infection, site not specified
CPT/HCPCS: 36415; 80048; 87086

== ENCOUNTER → 2020-08-17 13:35 | Outpatient (CLI) | payer MEDICARE, SELFPAY ==
[2020-07-25 13:47] VITALS: BMI 27.0
[2020-08-17 17:03] LABS: Anion Gap 8 (5-15); BUN 20 mg/dL (7-18); BUN/Creat Ratio 14.5 RATIO (10-20); Calcium,Total 9.6 mg/dL (8.5-10.1); Chloride 103 mmol/L (98-107); Creatinine, Serum 1.38 mg/dL (0.55-1.02); EST Glomerular Filtration Rate 40 mL/min (>60); Est Glom Filt Rate - Afr Amer 48 mL/min (>60); Glucose 95 mg/dL (74-106); Sodium Level 138 mmol/L (136-145)
== END ==
PROVIDERS: PCP Family Medicine Geriatric Medicine; Visit Provider Family Medicine Geriatric Medicine
DX: N39.0 Urinary tract infection, site not specified (principal); E87.6 Hypokalemia
CPT/HCPCS: 36415; 80048; 87086

== ENCOUNTER → 2020-08-30 15:36 | Outpatient (CLI) | payer MEDICARE, SELFPAY ==
[2020-08-30 16:54] LABS: Absolute Lymphocyte Count 1.38 X10^3/uL (0.83-4.51); Absolute Neutrophil Count 5.6 X10^3/uL (2.0-7.7); Basophil# 0.07 X10^3/uL; Basophil% 0.9 % (0-1); Eosinophil# 0.12 X10^3/uL; Eosinophils% 1.5 % (0-5); Hemoglobin 12.2 g/dL (12.0-15.0); Lymphocyte # 1.38 X10^3/ul (4.0); Lymphocyte % 17.8 % (19-41); Mean Corp Hgb Conc 31.3 g/dL (32-36); Mean Corpuscular Hgb 28.6 pg (27.0-32.0); Mean Corpuscular Volume 91.5 fL (81-99); Mean Platelet Vol. 11.1 fl (6.2-12.0); Monocyte# 0.52 X10^3/uL; Monocyte% 6.7 % (0-10); NRBC Flagged by Analyzer 0 % (0-5); Neutrophil # 5.64 X10^3/uL (2.7-7.7); Neutrophil % 72.8 % (47-70); Platelet Count 338 K/mm3 (150-450); RBC Distribution Width CV 14.5 % (11.6-14.6); RBC Distribution Width SD 48.1 fl (35.1-43.9); Red Blood Count 4.26 M/mm3 (4.2-5.4); White Blood Count 7.8 K/mm3 (4.4-11.0)
[2020-08-30 17:05] LABS: ALB/GLOB Ratio 0.9 RATIO (0.9-2.4); AST(SGOT) 25 U/L (15-37); Alanine Aminotransfer ALT/SGPT 20 U/L (13-56); Albumin, Serum 3.5 g/dL (3.2-5.0); Alkaline Phosphatase 78 U/L (45-117); Anion Gap 7 (5-15); BUN 20 mg/dL (7-18); BUN/Creat Ratio 21.2 RATIO (10-20); Calcium,Total 9.7 mg/dL (8.5-10.1); Chloride 104 mmol/L (98-107); Creatinine, Serum 0.94 mg/dL (0.55-1.02); EST Glomerular Filtration Rate 61 mL/min (>60); Est Glom Filt Rate - Afr Amer 74 mL/min (>60); Globulin 4.1 g/dL (2.2-4.2); Glucose 94 mg/dL (74-106); Potassium 3.1 mmol/L (3.5-5.1); Protein, Total 7.6 g/dL (6.4-8.2); Sodium Level 139 mmol/L (136-145)
== END ==
PROVIDERS: PCP Family Medicine Geriatric Medicine; Visit Provider Family Medicine Geriatric Medicine
DX: R10.9 Unspecified abdominal pain (principal)
CPT/HCPCS: 36415; 80053; 85025

== ENCOUNTER → 2020-08-31 10:41 | Outpatient (CLI) | payer MEDICARE, SELFPAY ==
--- NOTE | 2020-08-31 10:43 | CT_ITS ---
STUDY: CT ABDOMEN AND PELVIS WITH CONTRAST REASON FOR EXAM: Female, 75 years old. ABD PAIN. One week history of left lower quadrant pain and diarrhea. RADIATION DOSAGE (If Supplied By Facility): CTDIvol = ( 14.69 ) mGy, DLP = ( 642.78 ) mGycm TECHNIQUE: Transaxial images were obtained from the dome of the diaphragm to the symphysis pubis with oral contrast. Oral and amp; IV Gastrografin and amp; 100mL Isovue-300 was administered. Sagittal and coronal images were reconstructed. Individualized dose optimization techniques were used for this CT. COMPARISON: Comparison is made with prior study dated 01/17/2014. FINDINGS: The visualized lung bases are unremarkable. The visualized portions of the heart are within normal limits. There is decreased attenuation of the liver consistent with steatosis. The patient is status post cholecystectomy. Mildly dilated intrahepatic biliary ducts and common bile duct most likely secondary to the post cholecystectomy state. Normal spleen. Normal pancreas. Normal bilateral adrenal glands. Stable bilateral renal cysts. There is evidence of a cortical thinning of the left renal cortex. Normal visualized stomach. Normal small intestine. There is diverticulosis, with thickening of the colon wall, and pericolonic inflammation changes consistent with a mild degree of acute diverticulitis. The appendix is visualized and appears normal. Normal abdominal aorta. Normal inferior vena cava. Normal retroperitoneum. Normal urinary bladder. Calcified fibroid uterus. There is a small umbilical hernia containing fat. Normal osseous structures. CT/Abdomen/Pelvis WITH Contrast IMPRESSION: Findings suggestive of a mild degree of sigmoid diverticulitis without evidence of complication. Fatty infiltration of the liver. Status post cholecystectomy. Electronically Signed: Stephane Yates MD at 13:21 EDT , Service support ,
== END ==
PROVIDERS: PCP Family Medicine Geriatric Medicine; Referring Provider Family Medicine Geriatric Medicine; Visit Provider Family Medicine Geriatric Medicine
DX: R10.9 Unspecified abdominal pain (principal); R19.7 Diarrhea, unspecified
CPT/HCPCS: 36415; 74177; 82274; 83630; 87177; 87209; 87506; Q9967

== ENCOUNTER → 2020-08-31 15:40 | Outpatient (CLI) | payer MEDICARE, SELFPAY | PROVIDERS: PCP Family Medicine Geriatric Medicine; Visit Provider Family Medicine Geriatric Medicine | DX: R19.7 Diarrhea, unspecified (principal) | CPT/HCPCS: 36415; 82274; 83630; 87177; 87209; 87493; 87506 ==

== ENCOUNTER → 2020-09-02 10:15 | Outpatient (CLI) | payer MEDICARE, SELFPAY ==
[2019-11-17 09:57] VITALS: BMI 25.4
--- NOTE | 2020-09-02 10:18 | BI_ITS ---
MAMMOGRAPHY - BILATERAL SCREENING REASON FOR EXAM: Female, 75 years old. Routine annual screening examination. PERTINENT HISTORY: Non-contributory. TECHNIQUE: Digital bilateral breast [place] (3D mammographic acquisition) in the CC and MLO projections. 2-D mediolateral oblique (MLO) and craniocaudad (CC) views of both breasts were obtained. CAD: Full Field Digital Mammography with Computer Added Detection was performed. COMPARISON: Comparison is made with prior study dated 09/01/2019 and 08/30/2018. FINDINGS: Breast Composition: There are scattered areas of fibroglandular density. There are no dominant masses or suspicious calcifications. No other significant abnormalities are identified. There has been no significant change since the prior study. BI/SCRN MAMM (CAD)W/[place] BILAT IMPRESSION: Stable bilateral screening mammogram. Yearly follow-up mammogram recommended. (A) ASSESSMENT CATEGORY: BIRADS Category 1: Negative. A letter regarding these results will be sent to the patient by the facility within 30 days. Approximately 10% of breast cancers are not detected by mammography. A normal mammogram should not delay biopsy of a clinically suspicious abnormality. [id number] Electronically Signed: Stephane Yates MD at 11:16 EDT , Service support ,
== END ==
PROVIDERS: PCP Family Medicine Geriatric Medicine; Referring Provider Family Medicine Geriatric Medicine; Visit Provider Family Medicine Geriatric Medicine
DX: Z12.31 Encounter for screening mammogram for malignant neoplasm of breast (principal)
CPT/HCPCS: 77063; 77067

== ENCOUNTER → 2020-10-28 08:52 | Outpatient (CLI) | payer MEDICARE, SELFPAY ==
--- NOTE | 2020-10-28 08:56 | BD_ITS ---
STUDY: DUAL ENERGY X-RAY ABSORPTIOMETRY / DXA REASON FOR EXAM: Female, 75 years old. [id number]. Patient is postmenopausal. Loss of height. TECHNIQUE: Bone Mineral Density (BMD) measurements of lumbar spine and bilateral hips were obtained. COMPARISON: Comparison is made with prior study dated 08/08/2017. FINDINGS: Lumbar Spine (L1-L4): g/cm2 (0.879) / T-score (-2.5) / Z-score (-0.7) Findings are suggestive of osteoporosis with a high fracture risk. Left Femur Total: g/cm2 (0.810) / T-score (-1.6) / Z-score (0.2) Left Femoral Neck: g/cm2 (0.798) / T-score (-1.7) / Z-score (0.2) Right Femur Total: g/cm2 (0.797) / T-score (-1.7) / Z-score (0.1) Right Femoral Neck: g/cm2 (0.769) / T-score (-1.9) / Z-score (0.0) The T-Scores on the most recent prior examination were: Lumbar Spine (L1-L4): There has been improvement of bone density since the previous examination. Left Femur Total: which represents an improvement of 0.9%. Right Femur Total: which represents an improvement of 0.9%. BD/Dexa Bone Density Study IMPRESSION: The patient is considered osteoporotic as outlined below according to World Arnaldo Organization (WHO) criteria with a high fracture risk. There has been improvement of bone density since the previous examination. Reference Information: The T-score is the number of standard deviations above or below the standard which is normal for young adults at their peak bone mineral density. The World Health Organization (WHO) interprets the T-scores as follows: Above -1 Normal bone density Between -1 and -2.5 Osteopenia Equal to / or below -2.5 Osteoporosis As a practical clinical guideline, osteopenia may be graded as follows: Mild -1 through -1.5 Moderate -1.6 through -2.0 Severe -2.1 through -2.4 The Z-score is the number of standard deviations above or below age-matched controls. A Z-score of less than -1.5 would be considered abnormal. References: 1. NIH Osteoporosis and Related Bone Diseases www osteo.org 2. International Society for Clinical Densitometry www iscd.org 3. National Osteoporosis Foundation www nof.org Electronically Signed: Stephane Yates MD at 10:52 EDT , Service support ,
== END ==
PROVIDERS: PCP Family Medicine Geriatric Medicine; Referring Provider Family Medicine Geriatric Medicine; Visit Provider Family Medicine Geriatric Medicine
DX: M81.0 Age-related osteoporosis without current pathological fracture (principal); Z78.0 Asymptomatic menopausal state
CPT/HCPCS: 77080

== ENCOUNTER → 2021-01-24 10:31 | Outpatient (CLI) | payer MEDICARE, SELFPAY ==
[2020-11-18 09:23] VITALS: BMI 26.2
[2021-01-24 12:38] LABS: Absolute Lymphocyte Count 1.24 X10^3/uL (0.83-4.51); Absolute Neutrophil Count 5.5 X10^3/uL (2.0-7.7); Basophil# 0.06 X10^3/uL; Basophil% 0.8 % (0-1); Eosinophil# 0.04 X10^3/uL; Eosinophils% 0.6 % (0-5); Hematocrit 39.1 % (37-47); Hemoglobin 12.6 g/dL (12.0-15.0); Lymphocyte # 1.24 X10^3/ul (0.83-4.51); Lymphocyte % 17.2 % (19-41); Mean Corp Hgb Conc 32.2 g/dL (32-36); Mean Corpuscular Volume 86.9 fL (81-99); Mean Platelet Vol. 11.9 fl (6.2-12.0); Monocyte# 0.42 X10^3/uL; Monocyte% 5.8 % (0-10); NRBC Flagged by Analyzer 0 % (0-5); Neutrophil # 5.45 X10^3/uL (2.7-7.7); Neutrophil % 75.3 % (47-70); Platelet Count 258 K/mm3 (150-450); RBC Distribution Width CV 13.6 % (11.6-14.6); RBC Distribution Width SD 43.7 fl (35.1-43.9); White Blood Count 7.2 K/mm3 (4.4-11.0)
[2021-01-24 12:54] LABS: Vitamin D,25 Hydroxy 84.8 ng/mL
[2021-01-24 13:10] LABS: AST(SGOT) 26 U/L (15-37); Alanine Aminotransfer ALT/SGPT 27 U/L (13-56); Albumin, Serum 3.7 g/dL (3.2-5.0); Alkaline Phosphatase 70 U/L (45-117); Anion Gap 8 (5-15); BUN 21 mg/dL (7-18); BUN/Creat Ratio 24.4 RATIO (10-20); Chloride 105 mmol/L (98-107); Creatinine, Serum 0.86 mg/dL (0.55-1.02); EST Glomerular Filtration Rate 68 mL/min (>60); Est Glom Filt Rate - Afr Amer 82 mL/min (>60); Globulin 3.7 g/dL (2.2-4.2); Glucose 96 mg/dL (74-106); Potassium 3.3 mmol/L (3.5-5.1); Protein, Total 7.4 g/dL (6.4-8.2); Sodium Level 140 mmol/L (136-145); Thyroid Stim Hormone (TSH) 1.36 uIU/mL (0.358-3.74)
== END ==
PROVIDERS: PCP Family Medicine Geriatric Medicine; Visit Provider Family Medicine Geriatric Medicine
DX: I10 Essential (primary) hypertension (principal); E55.9 Vitamin D deficiency, unspecified
CPT/HCPCS: 36415; 80053; 82306; 84443; 85025

== ENCOUNTER → 2021-02-02 09:26 | Outpatient (CLI) | payer MEDICARE, SELFPAY ==
[2020-11-18 09:23] VITALS: BMI 26.2
[2021-02-02 13:00] LABS: Anion Gap 8 (5-15); BUN 24 mg/dL (7-18); BUN/Creat Ratio 25.4 RATIO (10-20); Chloride 102 mmol/L (98-107); Creatinine, Serum 0.94 mg/dL (0.55-1.02); EST Glomerular Filtration Rate 61 mL/min (>60); Est Glom Filt Rate - Afr Amer 74 mL/min (>60); Glucose 95 mg/dL (74-106); Sodium Level 139 mmol/L (136-145)
== END ==
PROVIDERS: PCP Family Medicine Geriatric Medicine; Visit Provider Family Medicine Geriatric Medicine
DX: E87.6 Hypokalemia (principal)
CPT/HCPCS: 36415; 80048

== ENCOUNTER 2021-07-25 09:54 | Outpatient (CLI) | payer MEDICARE, SELFPAY ==
[2021-07-25 11:07] LABS: Absolute Lymphocyte Count 1.25 X10^3/uL (0.83-4.51); Absolute Neutrophil Count 4.8 X10^3/uL (2.0-7.7); Basophil# 0.05 X10^3/uL; Basophil% 0.8 % (0-1); Eosinophil# 0.06 X10^3/uL; Eosinophils% 0.9 % (0-5); Hematocrit 39.8 % (37-47); Hemoglobin 13.2 g/dL (12.0-15.0); Lymphocyte # 1.25 X10^3/ul (0.83-4.51); Lymphocyte % 18.9 % (19-41); Mean Corp Hgb Conc 33.2 g/dL (32-36); Mean Corpuscular Hgb 29.2 pg (27.0-32.0); Mean Corpuscular Volume 88.1 fL (81-99); Mean Platelet Vol. 11.7 fl (6.2-12.0); Monocyte# 0.45 X10^3/uL; Monocyte% 6.8 % (0-10); NRBC Flagged by Analyzer 0 % (0-5); Neutrophil # 4.78 X10^3/uL (2.7-7.7); Neutrophil % 72.3 % (47-70); Platelet Count 249 K/mm3 (150-450); RBC Distribution Width CV 14.4 % (11.6-14.6); RBC Distribution Width SD 46.7 fl (35.1-43.9); Red Blood Count 4.52 M/mm3 (4.2-5.4); White Blood Count 6.6 K/mm3 (4.4-11.0)
[2021-07-25 11:23] LABS: Vitamin D,25 Hydroxy 78.6 ng/mL
[2021-07-25 11:35] LABS: ALB/GLOB Ratio 0.9 RATIO (0.9-2.4); AST(SGOT) 30 U/L (15-37); Alanine Aminotransfer ALT/SGPT 25 U/L (13-56); Albumin, Serum 3.6 g/dL (3.2-5.0); Alkaline Phosphatase 93 U/L (45-117); Anion Gap 5 (5-15); BUN 27 mg/dL (7-18); BUN/Creat Ratio 26.5 RATIO (10-20); Chloride 103 mmol/L (98-107); Creatinine, Serum 1.02 mg/dL (0.55-1.02); EST Glomerular Filtration Rate 56 mL/min (>60); Est Glom Filt Rate - Afr Amer 68 mL/min (>60); Globulin 3.9 g/dL (2.2-4.2); Glucose 100 mg/dL (74-106); Potassium 3.6 mmol/L (3.5-5.1); Protein, Total 7.5 g/dL (6.4-8.2); Sodium Level 139 mmol/L (136-145); Thyroid Stim Hormone (TSH) 1.79 uIU/mL (0.358-3.74)
== END 2021-07-25 23:59 | disposition home or self-care (01) ==
LOC: POLAB3 09:55
PROVIDERS: PCP Family Medicine Geriatric Medicine; Visit Provider Family Medicine Geriatric Medicine
DX: I10 Essential (primary) hypertension (principal); E55.9 Vitamin D deficiency, unspecified
CPT/HCPCS: 36415; 80053; 82306; 84443; 85025

== ENCOUNTER 2021-09-06 12:20 | Outpatient (CLI) | payer MEDICARE, SELFPAY ==
--- NOTE | 2021-09-06 12:23 | BI_ITS ---
MAMMOGRAPHY - BILATERAL SCREENING REASON FOR EXAM: Female, 76 years old. Routine annual screening examination. PERTINENT HISTORY: Non-contributory. TECHNIQUE: Digital bilateral breast [place] (3D mammographic acquisition) in the CC and MLO projections. 2-D mediolateral oblique (MLO) and craniocaudad (CC) views of both breasts were obtained. CAD: Full Field Digital Mammography with Computer Added Detection was performed. COMPARISON: Comparison is made with prior study dated 09/02/2020 and 09/01/2019. FINDINGS: Breast Composition: There are scattered areas of fibroglandular density. There are no dominant masses or suspicious calcifications. No other significant abnormalities are identified. There has been no significant change since the prior study. BI/SCRN MAMM (CAD)W/[place] BILAT IMPRESSION: Stable bilateral screening mammogram. Yearly follow-up mammogram recommended. (A) ASSESSMENT CATEGORY: BIRADS Category 1: Negative. A letter regarding these results will be sent to the patient by the facility within 30 days. Approximately 10% of breast cancers are not detected by mammography. A normal mammogram should not delay biopsy of a clinically suspicious abnormality. [id number] Electronically Signed: Stephane Yates MD at 12:56 EDT ,
== END 2021-09-06 23:59 | disposition home or self-care (01) ==
LOC: OPBI 12:21
PROVIDERS: PCP Family Medicine Geriatric Medicine; Visit Provider Family Medicine Geriatric Medicine
DX: Z12.31 Encounter for screening mammogram for malignant neoplasm of breast (principal)
CPT/HCPCS: 77063; 77067

== ENCOUNTER → 2022-01-30 | Outpatient (CLI) | payer MEDICARE, SELFPAY ==
[2022-01-30 11:36] LABS: Absolute Lymphocyte Count 1.25 X10^3/uL (0.83-4.51); Absolute Neutrophil Count 4.2 X10^3/uL (2.0-7.7); Basophil# 0.03 X10^3/uL; Basophil% 0.5 % (0-1); Eosinophil# 0.13 X10^3/uL; Eosinophils% 2.2 % (0-5); Hematocrit 37.6 % (37-47); Hemoglobin 11.9 g/dL (12.0-15.0); Lymphocyte # 1.25 X10^3/ul (0.83-4.51); Lymphocyte % 20.7 % (19-41); Mean Corp Hgb Conc 31.6 g/dL (32-36); Mean Corpuscular Hgb 28.8 pg (27.0-32.0); Mean Platelet Vol. 11.4 fl (6.2-12.0); Monocyte# 0.41 X10^3/uL; Monocyte% 6.8 % (0-10); NRBC Flagged by Analyzer 0 % (0-5); Neutrophil % 69.6 % (47-70); Platelet Count 245 K/mm3 (150-450); RBC Distribution Width SD 50.5 fl (35.1-43.9); Red Blood Count 4.13 M/mm3 (4.2-5.4)
[2022-01-30 12:32] LABS: Vitamin D,25 Hydroxy 66.9 ng/mL
[2022-01-30 12:39] LABS: ALB/GLOB Ratio 0.9 RATIO (0.9-2.4); AST(SGOT) 27 U/L (15-37); Alanine Aminotransfer ALT/SGPT 21 U/L (13-56); Albumin, Serum 3.4 g/dL (3.2-5.0); Alkaline Phosphatase 81 U/L (45-117); Anion Gap 5 (5-15); BUN 23 mg/dL (7-18); BUN/Creat Ratio 23.3 RATIO (10-20); Calcium,Total 9.7 mg/dL (8.5-10.1); Chloride 111 mmol/L (98-107); Creatinine, Serum 0.99 mg/dL (0.55-1.02); EST Glomerular Filtration Rate 58 mL/min (>60); Est Glom Filt Rate - Afr Amer 70 mL/min (>60); Globulin 3.7 g/dL (2.2-4.2); Glucose 103 mg/dL (74-106); Potassium 3.8 mmol/L (3.5-5.1); Protein, Total 7.1 g/dL (6.4-8.2); Sodium Level 145 mmol/L (136-145); Thyroid Stim Hormone (TSH) 1.84 uIU/mL (0.358-3.74)
== END | disposition home or self-care (01) ==
LOC: LAB 10:57
PROVIDERS: PCP Family Medicine Geriatric Medicine; Referring Provider Family Medicine Geriatric Medicine; Visit Provider Family Medicine Geriatric Medicine
DX: E55.9 Vitamin D deficiency, unspecified (principal); I10 Essential (primary) hypertension
CPT/HCPCS: 36415; 80053; 82306; 84443; 85025

== ENCOUNTER → 2022-04-03 | Outpatient (CLI) | payer MEDICARE, SELFPAY ==
--- NOTE | 2022-04-03 16:25 | RAD_ITS ---
STUDY: X-RAY - LUMBAR SPINE REASON FOR EXAM: Female, 76 years old. HIP PAIN TECHNIQUE: 3 view(s) of the lumbar spine were obtained. COMPARISON: 01/03/2016 abdomen x-ray, 08/31/2020 CT abdomen/pelvis FINDINGS: Normal lumbar lordosis. There is no substantial scoliosis. Mild stepwise anterolisthesis at L3-4 and L4-5 There is generalized demineralization of the vertebral bodies. There is multi-level degenerative disc disease with multi-level disc space narrowing. There is no demonstrated fracture. Diffuse gaseous bowel distention. RAD/Lumbar Spine 2 or 3 Views IMPRESSION: Mild anterolisthesis at L3-4 and L4-5. Diffuse gaseous bowel distention. Electronically Signed: Adalberto Ceja MD at 8:46 EDT ,
== END | disposition home or self-care (01) ==
LOC: RAD 16:18
PROVIDERS: PCP Family Medicine Geriatric Medicine; Visit Provider Family Medicine Geriatric Medicine
DX: M25.559 Pain in unspecified hip (principal)
CPT/HCPCS: 72100

== ENCOUNTER → 2022-07-31 | Outpatient (CLI) | payer MEDICARE, SELFPAY ==
[2022-07-31 13:16] LABS: Absolute Lymphocyte Count 1.43 X10^3/uL (0.83-4.51); Absolute Neutrophil Count 5.5 X10^3/uL (2.0-7.7); Basophil# 0.08 X10^3/uL; Eosinophil# 0.12 X10^3/uL; Eosinophils% 1.6 % (0-5); Hematocrit 41.3 % (37-47); Hemoglobin 13.2 g/dL (12.0-15.0); Lymphocyte # 1.43 X10^3/ul (0.83-4.51); Lymphocyte % 18.5 % (19-41); Mean Corpuscular Hgb 28.2 pg (27.0-32.0); Mean Corpuscular Volume 88.2 fL (81-99); Mean Platelet Vol. 12.2 fl (6.2-12.0); Monocyte# 0.55 X10^3/uL; Monocyte% 7.1 % (0-10); NRBC Flagged by Analyzer 0 % (0-5); Neutrophil # 5.54 X10^3/uL (2.7-7.7); Neutrophil % 71.5 % (47-70); Platelet Count 246 K/mm3 (150-450); RBC Distribution Width CV 14.9 % (11.6-14.6); RBC Distribution Width SD 48.5 fl (35.1-43.9); Red Blood Count 4.68 M/mm3 (4.2-5.4); White Blood Count 7.7 K/mm3 (4.4-11.0)
[2022-07-31 13:34] LABS: Vitamin D,25 Hydroxy 57.5 ng/mL
[2022-07-31 13:43] LABS: ALB/GLOB Ratio 0.9 RATIO (0.9-2.4); AST(SGOT) 24 U/L (15-37); Alanine Aminotransfer ALT/SGPT 18 U/L (13-56); Albumin, Serum 3.5 g/dL (3.2-5.0); Alkaline Phosphatase 100 U/L (45-117); Anion Gap 7 (5-15); BUN 22 mg/dL (7-18); BUN/Creat Ratio 21.4 RATIO (10-20); Calcium,Total 9.4 mg/dL (8.5-10.1); Chloride 107 mmol/L (98-107); Creatinine, Serum 1.03 mg/dL (0.55-1.02); EST Glomerular Filtration Rate 55 mL/min (>60); Est Glom Filt Rate - Afr Amer 67 mL/min (>60); Globulin 3.8 g/dL (2.2-4.2); Glucose 103 mg/dL (74-106); Protein, Total 7.3 g/dL (6.4-8.2); Sodium Level 141 mmol/L (136-145); Thyroid Stim Hormone (TSH) 2.45 uIU/mL (0.358-3.74)
== END | disposition home or self-care (01) ==
LOC: POLAB3 11:00
PROVIDERS: PCP Family Medicine Geriatric Medicine; Visit Provider Family Medicine Geriatric Medicine
DX: E55.9 Vitamin D deficiency, unspecified (principal); I10 Essential (primary) hypertension
CPT/HCPCS: 36415; 80053; 82306; 84443; 85025

== ENCOUNTER → 2022-08-09 | Outpatient (CLI) | payer MEDICARE, SELFPAY ==
--- NOTE | 2022-08-09 15:19 | RAD_ITS ---
STUDY: X-RAY - LEFT SHOULDER REASON FOR EXAM: Female, 77 years old. PAIN. No history of injury. TECHNIQUE: 4 view(s) of the shoulder. COMPARISON: None. FINDINGS: Normal glenohumeral articulation. Normal acromioclavicular joint. Normal acromion. Normal humeral head and visualized proximal humerus. The soft tissue structures are unremarkable. Normal visualized pulmonary apex. RAD/Shoulder min 2 Views IMPRESSION: Normal x-ray examination of the shoulder. Electronically Signed: Stephane Yates MD at 15:46 EST ,
== END | disposition home or self-care (01) ==
LOC: RAD 15:18
PROVIDERS: PCP Family Medicine Geriatric Medicine; Referring Provider Family Medicine Geriatric Medicine; Visit Provider Family Medicine Geriatric Medicine
DX: M25.512 Pain in left shoulder (principal)
CPT/HCPCS: 73030

== ENCOUNTER → 2022-08-28 | Outpatient (CLI) | payer MEDICARE, SELFPAY ==
[2022-08-28 17:33] LABS: Absolute Lymphocyte Count 1.09 X10^3/uL (0.83-4.51); Absolute Neutrophil Count 6.2 X10^3/uL (2.0-7.7); Basophil# 0.04 X10^3/uL; Basophil% 0.5 % (0-1); Eosinophil# 0.05 X10^3/uL; Eosinophils% 0.6 % (0-5); Hematocrit 38.3 % (37-47); Hemoglobin 12.1 g/dL (12.0-15.0); Lymphocyte # 1.09 X10^3/ul (0.83-4.51); Lymphocyte % 13.5 % (19-41); Mean Corp Hgb Conc 31.6 g/dL (32-36); Mean Corpuscular Hgb 28.5 pg (27.0-32.0); Mean Corpuscular Volume 90.1 fL (81-99); Monocyte# 0.69 X10^3/uL; Monocyte% 8.6 % (0-10); NRBC Flagged by Analyzer 0 % (0-5); Neutrophil # 6.18 X10^3/uL (2.7-7.7); Neutrophil % 76.6 % (47-70); Platelet Count 255 K/mm3 (150-450); RBC Distribution Width CV 15.1 % (11.6-14.6); RBC Distribution Width SD 49.8 fl (35.1-43.9); Red Blood Count 4.25 M/mm3 (4.2-5.4); White Blood Count 8.1 K/mm3 (4.4-11.0)
== END | disposition home or self-care (01) ==
LOC: POLAB3 16:20
PROVIDERS: PCP Family Medicine Geriatric Medicine; Visit Provider Family Medicine Geriatric Medicine
DX: D64.9 Anemia, unspecified (principal)
CPT/HCPCS: 36415; 85025

== ENCOUNTER 2022-10-02 07:59 | Day surgery (SDC) | payer MEDICARE, SELFPAY ==
[2022-10-02] VITALS (7 sets, daily range): BP systolic 102–140; BP diastolic 58–88; PULSE 64–85; RESP 16–18; TEMP 36.1–36.9; O2SAT 98–99; BMI 22.1
--- NOTE | 2022-10-02 08:31 | HP.PCM_ITS ---
History and Physical Date of Admission: 10/02/22 Visit Reasons:?Rectal Bleeding Chief Complaint: rectal bleeding Allergies No Known Allergies Allergy (Verified 09/07/22 13:39) Medications calcium carbonate 500 mg-vitamin D3 2.5 mcg (100 unit) chewable tablet 1 ea PO BID 07/03/15 [History Confirmed 09/07/22] valsartan 160 mg-hydrochlorothiazide 12.5 mg tablet 1 tab PO DAILY 11/13/18 [History Confirmed 09/07/22] multivitamin 1 tab PO DAILY 11/23/21 [History Confirmed 09/07/22] potassium chloride 10 mEq capsule,extended release 10 meq PO DAILY 09/07/22 [History Confirmed 09/07/22] PFSH Medical History?(Updated 09/07/22 @ 05:[address] Tony Chavez MD) Benign neoplasm of stomach Diaphragmatic hernia Hyperlipidemia Hypertension IBS (irritable bowel syndrome) Senile osteoporosis Surgical History? H/O laparoscopy Hiatal hernia History of appendectomy History of esophagogastroduodenoscopy (EGD) S/P cholecystectomy S/P colonoscopy S/P dilation and curettage Family History? Mother Cancer ?? ? lung-smokerFather Colon cancer Social History? Smoking Status:? Never smoker alcohol intake:? never substance use type:? does not use caffeine:? No what type of physical activity do you participate in:? walking frequency:? 3-4 times per week seatbelt use:? always do you feel safe at home:? Yes additional social history:? Patient is retired HPI HPI HPI: 77-year-old female was referred by Dr. Calos Morrison for surgical consultation regarding right red blood per rectum.? This was of acute onset on August 27, 2022.? The patient does take naproxen and prednisone as well as pantoprazole.? She is had surgical repair of I have her hernia and cholecystectomy.? As of August 28, 2022 white blood cell count was 8.1 with a hemoglobin of 12.1 hematocrit 38.3 platelet count 255,000.? 76% neutrophils.? It does not appear that she is on any anticoagulants. She did have a CT scan of the abdomen pelvis with contrast on August 31, 2020.? I have personally reviewed those images.? Findings suggest steatosis and evidence of previous cholecystectomy.? Bile duct slightly enlarged.? Findings were at that time were consistent with acute sigmoid diverticulitis.? Small umbilical hernia with fat. Is concerned because she has had 2 episodes of bright red rectal bleeding.? No pain.? Is not on any anticoagulants.? No abdominal pain.? No black stools.? Previous colonoscopy was 10 years ago.? No family history of colon cancer. ROS General General: No weight change, appetite, fatigue, colon cancer, breast cancer or weakness HEENT HEENT: No difficulty swallowing, eye injury, eye surgery, swollen glands or hoarseness Endo Endocrine: No thyroid disease, diabetes mellitus, thyroid cancer, Hair loss, heat intolerance or cold intolerance Skin Skin: No rash or changing moles Musc Musculoskeletal: No back problems, arthritis, rheumatoid arthritis, gout or joint pain Cardio Cardiovascular: Yes high blood pressure; No murmur, pacemaker, heart disease, atrial fibrillation, heart attack, heart stent, palpitations, shortness of breat with exertion or chest pain Psych Psychiatric: No depression, anxiety or hearing voices Resp Respiratory: No shortness of breath, No sleep apnea, No cough, No COPD, No asthma, No emphysema and No wheezing Gastro Gastrointestinal: No abdominal pain, No nausea or vomiting, Yes diarrhea, No constipation, Yes blood in stool, No acid reflux, No hemorrhoids, No ulcers, No gallbladder problem and No black,tarry stools Nilo Hematologic: No blood thinners, No blood disorders, No bleeding, No anemia and No blood clots Neuro Neurologic: No system reviewed and no additional complaints, except as documented, No as per HPI, No abnormal gait, No abnormal hearing, No abnormal movements, No abnormal speech, No behavioral changes, No burning sensations, No confusion, No convulsions, No disequilibrium, No dizziness, No localized weakness, No frequent falls, No headache(s), No lack of coordination, No loss of vision, No memory loss, No numbness, No other visual disturbances, No radicular pain, No restless legs, No sensory deficit, No syncope, No tingling, No tremor(s), No weakness and No other Exam Const General: cooperative, healthy appearing and comfortable [facility] Head: normal to inspection Eyes General: appearance normal, both eyes and all related structures Neck Neck: normal visual inspection Chest Chest palpation & inspection: normal inspection of the chest Resp Effort & Inspection: normal respiratory effort Auscultation: clear to auscultation bilaterally Cardio Rate: regular rate Rhythm: regular rhythm GI Palpation: soft and no hepatosplenomegaly Auscultation: normal bowel sounds Other: Sternal and has had some mild hemorrhoidal tags.? Nothing engorged.? No evidence of current bleeding.? No evidence for fissure Musc Cervical Spine: normal cervical lordosis Skin General: no rashes or lesions noted Neuro General: patient alert, patient awake and patient oriented x3 Extrem General: no calf tenderness Assessment and Plan Assessment and Plan (1) Rectal bleeding: ?Status:?Acute ?Plan: I recommended the patient a colonoscopy with possible biopsy or polypectomy as indicated.? She is aware of the technique, benefit, risk, alternatives.? She has had an option to ask and have questions answered.? We will try to schedule and expedite her care.? I appreciate the opportunity of assisting with her surgical care. Copy: Dr. Calos Chavez M.D., F.A.C.S. I have examined the patient and the H&P has been reviewed. There are no clinical changes since date of exam. Tony Chavez M.D., F.A.C.S.
[2022-10-02] MEDS: Lactated Ringers 1,000 ML 15 ML IV (08:41)
--- NOTE | 2022-10-02 09:45 | OP.COLON_ITS ---
Patient Name: Nia Cary Procedure Date: 10/02/2022 9:16 AM Date of : 1945 Age: 77 Procedure: Colonoscopy Indications: Rectal bleeding Providers: Tony Chavez MD Medicines: See the Anesthesia note for documentation of the administered medications Patient Profile: Last Colonoscopy: 10 years ago. Complications: No immediate complications. Procedure: Pre-Anesthesia Assessment: - Prior to the procedure, a History and Physical was performed, and patient medications and allergies were reviewed. The patient's tolerance of previous anesthesia was also reviewed. The risks and benefits of the procedure and the sedation options and risks were discussed with the patient. All questions were answered, and informed consent was obtained. Prior Anticoagulants: The patient has taken no previous anticoagulant or antiplatelet agents. ASA Grade Assessment: II - A patient with mild systemic disease. After reviewing the risks and benefits, the patient was deemed in satisfactory condition to undergo the procedure. After I obtained informed consent, the scope was passed under direct vision. Throughout the procedure, the patient's blood pressure, pulse, and oxygen saturations were monitored continuously. The Colonoscope was introduced through the anus and advanced to the cecum, identified by appendiceal orifice and ileocecal valve. The colonoscopy was somewhat difficult due to a tortuous colon. The patient tolerated the procedure well. The quality of the bowel preparation was good. Scope In: 9:23:49 AM Scope Withdrawal Time 0 hours 6 minutes 49 seconds Scope Out: 9:40:20 AM Total Procedure Duration Time 0 hours 16 minutes 31 seconds Findings: The digital rectal exam findings include non-thrombosed external hemorrhoids, non-thrombosed internal hemorrhoids and internal hemorrhoids that prolapse with straining, but spontaneously regress to the resting position (Grade II). Multiple diverticula were found in the sigmoid colon and descending colon. The colon (entire examined portion) was moderately tortuous. Advancing the scope required using manual pressure. The exam was otherwise without abnormality. Impression: - Non-thrombosed external hemorrhoids, non-thrombosed internal hemorrhoids and internal hemorrhoids that prolapse with straining, but spontaneously regress to the resting position (Grade II) found on digital rectal exam. - Diverticulosis in the sigmoid colon and in the descending colon. - Tortuous colon. - The examination was otherwise normal. - No specimens collected. Recommendation: - Discharge patient to home. - Resume previous diet. - Continue present medications. - Repeat colonoscopy is not recommended due to current age (66 years or older) for screening purposes. Suspect intermittent rectal bleeding is secondary to internal hemorrhoids. Conservative measures will be recommended with fiber supplementation. Further office follow-up can be as patient needs if bleeding persists. Procedure Code(s): --- Professional --- 03294, Colonoscopy, flexible; diagnostic, including collection of specimen(s) by brushing or washing, when performed (separate procedure) Diagnosis Code(s): --- Professional --- K64.1, Second degree hemorrhoids K64.4, Residual hemorrhoidal skin tags K62.5, Hemorrhage of anus and rectum K57.30, Diverticulosis of large intestine without perforation or abscess without bleeding Q43.8, Other specified congenital malformations of intestine CPT copyright 2017 [employer]. All rights reserved. The codes documented in this report are preliminary and upon patient transport officer review may be revised to meet current compliance requirements. Tony Chavez MD 10/02/2022 9:45:03 AM This report has been signed electronically. Number of Addenda: 0 Note Initiated On: 10/02/2022 9:16 AM
--- NOTE | 2022-10-02 09:46 | OP.CCLET_ITS ---
10/02/2022 Calos Morrison MD [address] [place] [address] Re : Colonoscopy procedure for Nia Cary Dear Dr. Morrison This procedure was performed on Sunday, October 02, 2022. My impressions and recommendations are as follows: Impressions : - Non-thrombosed external hemorrhoids, non-thrombosed internal hemorrhoids and internal hemorrhoids that prolapse with straining, but spontaneously regress to the resting position (Grade II) found on digital rectal exam. - Diverticulosis in the sigmoid colon and in the descending colon. - Tortuous colon. - The examination was otherwise normal. - No specimens collected. Recommendations : - Discharge patient to home. - Resume previous diet. - Continue present medications. - Repeat colonoscopy is not recommended due to current age (66 years or older) for screening purposes. Suspect intermittent rectal bleeding is secondary to internal hemorrhoids. Conservative measures will be recommended with fiber supplementation. Further office follow-up can be as patient needs if bleeding persists. My findings are described in the full procedure note, which is enclosed. If I can be of further assistance, please feel free to contact me at Doctor phone number(s): Work: . Sincerely, Tony Chavez MD 10/02/2022 9:45:03 AM This report has been signed electronically.
== END 2022-10-02 10:19 | disposition home or self-care (01) ==
LOC: EN 08:02 → AC 08:02
PROVIDERS: PCP Family Medicine Geriatric Medicine; Referring Provider Family Medicine Geriatric Medicine; Visit Provider Surgery
PROC: 0DJD8ZZ Inspection of Lower Intestinal Tract, Via Natural or Artificial Opening Endoscopic (ICD-10-PCS; CPT 45378; principal; 2022-10-02 09:10)
DX: K57.30 Diverticulosis of large intestine without perforation or abscess without bleeding (principal); K64.4 Residual hemorrhoidal skin tags; K64.1 Second degree hemorrhoids; K62.5 Hemorrhage of anus and rectum; I10 Essential (primary) hypertension; Z79.899 Other long term (current) drug therapy; Z80.0 Family history of malignant neoplasm of digestive organs
CPT/HCPCS: 45378; J7120; J2405

== ENCOUNTER → 2022-10-16 | Outpatient (CLI) | payer MEDICARE, SELFPAY ==
--- NOTE | 2022-10-16 15:40 | RAD_ITS ---
STUDY: X-RAY - PELVIS AND RIGHT HIP REASON FOR EXAM: Female, 77 years old. Right hip pain. Bilateral leg pain. No known injury. TECHNIQUE: 3 views of the pelvis and hip. COMPARISON: Comparison is made with prior study dated January 04, 2017. FINDINGS: There is a non-specific bowel gas pattern. Normal visualized soft tissue structures. Normal bilateral iliac wings, sacroiliac joints and visualized sacrum. Normal bilateral superior and inferior pubic rami. Normal pubic symphysis. Normal bilateral ischial tuberosities. Normal visualized femoral head. Normal acetabulum. There is mild articular joint space narrowing of the hip. RAD/HIP, UNI W/ Pelvis 2-3 Views IMPRESSION: Mild degree of osteoarthritis of the right hip joint. Electronically Signed: Stephane Yates MD at 9:09 EDT ,
--- NOTE | 2022-10-16 15:40 | RAD_ITS ---
EXAM: XR LUMBOSACRAL SPINE, 4 OR 5 VIEWS CLINICAL INDICATION: LUMBAR DISC DISEASE TECHNIQUE: Frontal, lateral and bilateral oblique views of the lumbar spine. COMPARISON: No relevant prior studies available. FINDINGS: VERTEBRAE: Slight anterior subluxation of L3 on L4 and L4 on L5. Bilateral facet arthropathy L3-L4 through L5-S1. Preserved vertebral body height. No fracture. No spondylolisthesis. Preservation of the normal lumbar lordosis. DISC SPACES: No acute findings. Disc spaces are maintained. GASTROINTESTINAL TRACT: Multiple distended loops of small bowel with fold thickening. RAD/L/S Spine Min 4 Views IMPRESSION: 1. Multiple distended loops of small bowel with fold thickening. Findings may be due to gastroenteritis or other small bowel enteropathy. 2. Slight anterior subluxation of L3 on L4 and L4 on L5 on a degenerative basis with bilateral facet arthropathy. Electronically Signed: Demetrius Styles MD at 4:37 EDT ,
== END | disposition home or self-care (01) ==
LOC: RAD 15:31
PROVIDERS: PCP Family Medicine Geriatric Medicine; Referring Provider Family Medicine Geriatric Medicine; Visit Provider Family Medicine Geriatric Medicine
DX: M51.9 Unspecified thoracic, thoracolumbar and lumbosacral intervertebral disc disorder (principal); M25.551 Pain in right hip
CPT/HCPCS: 72110; 73502

== ENCOUNTER → 2022-12-13 | Outpatient (CLI) | payer MEDICARE, SELFPAY ==
--- NOTE | 2022-12-13 10:43 | BI_ITS ---
MAMMOGRAPHY - BILATERAL SCREENING REASON FOR EXAM: Female, 77 years old. Routine annual screening examination. PERTINENT HISTORY: Non-contributory. TECHNIQUE: Digital bilateral breast [place] (3D mammographic acquisition) in the CC and MLO projections. 2-D mediolateral oblique (MLO) and craniocaudad (CC) views of both breasts were obtained. CAD: Full Field Digital Mammography with Computer Added Detection was performed. COMPARISON: Comparison is made with prior study September 06, 2021 and September 02, 2020. FINDINGS: Breast Composition: The breasts are heterogeneously dense, which may obscure small masses. There are no dominant masses or suspicious calcifications. No other significant abnormalities are identified. There has been no significant change since the prior study. BI/SCRN MAMM (CAD)W/[place] BILAT IMPRESSION: Stable bilateral screening mammogram. Yearly follow-up mammogram recommended. (A) ASSESSMENT CATEGORY: BIRADS Category 1: Negative. A letter regarding these results will be sent to the patient by the facility within 30 days. Approximately 10% of breast cancers are not detected by mammography. A normal mammogram should not delay biopsy of a clinically suspicious abnormality. [id number] Electronically Signed: Stephane Yates MD at 11:43 EDT ,
== END | disposition home or self-care (01) ==
LOC: OPBI 10:42
PROVIDERS: PCP Family Medicine Geriatric Medicine; Referring Provider Nurse Practitioner Women's Health; Visit Provider Nurse Practitioner Women's Health
DX: Z12.31 Encounter for screening mammogram for malignant neoplasm of breast (principal)
CPT/HCPCS: 77063; 77067

== ENCOUNTER → 2023-01-23 | Outpatient (CLI) | payer MEDICARE, SELFPAY ==
[2023-01-23 12:47] LABS: Absolute Lymphocyte Count 1.31 X10^3/uL (0.83-4.51); Absolute Neutrophil Count 6.3 X10^3/uL (2.0-7.7); Basophil# 0.08 X10^3/uL; Eosinophil# 0.14 X10^3/uL; Eosinophils% 1.7 % (0-5); Hematocrit 40.2 % (37-47); Hemoglobin 12.1 g/dL (12.0-15.0); Lymphocyte # 1.31 X10^3/ul (0.83-4.51); Lymphocyte % 15.7 % (19-41); Mean Corp Hgb Conc 30.1 g/dL (32-36); Mean Corpuscular Hgb 27.1 pg (27.0-32.0); Mean Corpuscular Volume 89.9 fL (81-99); Mean Platelet Vol. 11.8 fl (6.2-12.0); Monocyte# 0.52 X10^3/uL; Monocyte% 6.2 % (0-10); NRBC Flagged by Analyzer 0 % (0-5); Neutrophil # 6.29 X10^3/uL (2.7-7.7); Platelet Count 365 K/mm3 (150-450); RBC Distribution Width CV 15.4 % (11.6-14.6); RBC Distribution Width SD 50.9 fl (35.1-43.9); Red Blood Count 4.47 M/mm3 (4.2-5.4); White Blood Count 8.4 K/mm3 (4.4-11.0)
[2023-01-23 13:03] LABS: Vitamin D,25 Hydroxy 52.6 ng/mL
[2023-01-23 13:10] LABS: ALB/GLOB Ratio 0.8 RATIO (0.9-2.4); AST(SGOT) 19 U/L (15-37); Alanine Aminotransfer ALT/SGPT 16 U/L (13-56); Albumin, Serum 3.3 g/dL (3.2-5.0); Alkaline Phosphatase 104 U/L (45-117); Anion Gap 4 (5-15); BUN 19 mg/dL (7-18); BUN/Creat Ratio 20.2 RATIO (10-20); Calcium,Total 9.4 mg/dL (8.5-10.1); Chloride 109 mmol/L (98-107); Creatinine, Serum 0.94 mg/dL (0.55-1.02); EST Glomerular Filtration Rate 61 mL/min (>60); Est Glom Filt Rate - Afr Amer 74 mL/min (>60); Globulin 4.2 g/dL (2.2-4.2); Glucose 117 mg/dL (74-106); Potassium 3.8 mmol/L (3.5-5.1); Protein, Total 7.5 g/dL (6.4-8.2); Sodium Level 141 mmol/L (136-145); Thyroid Stim Hormone (TSH) 2.31 uIU/mL (0.358-3.74)
== END | disposition home or self-care (01) ==
PROVIDERS: PCP Family Medicine Geriatric Medicine; Visit Provider Family Medicine Geriatric Medicine
DX: I10 Essential (primary) hypertension (principal); E55.9 Vitamin D deficiency, unspecified
CPT/HCPCS: 36415; 80053; 82306; 84443; 85025

== ENCOUNTER → 2023-03-26 | Outpatient (CLI) | payer MEDICARE, SELFPAY ==
[2023-03-26 20:25] LABS: M R Staph aureus DNA By PCR Negative (Negative); Probe Check PASS; Specimen Processing Control PASS; Staph aureus DNA By PCR NEGATIVE (Negative)
== END | disposition home or self-care (01) ==
PROVIDERS: PCP Family Medicine Geriatric Medicine; Visit Provider Family Medicine Geriatric Medicine
DX: L03.113 Cellulitis of right upper limb (principal)
CPT/HCPCS: 87070; 87075; 87077; 87186; 87205; 87640

== ENCOUNTER 2023-04-19 06:17 | Emergency (ER) | payer MEDICARE, SELFPAY ==
[2023-04-19 06:18] VITALS: BP 161/82; PULSE 86; RESP 15; TEMP 36.3; O2SAT 98; BMI 21.4
--- NOTE | 2023-04-19 06:40 | EX.ED.DYSGE1 ---
HPI History of Present Illness Chief Complaint: Other, Pain/Inj Informant: patient and spouse/S.O. Narrative Narrative: Patient is a 77-year-old female with past medical history of hypertension and hyperlipidemia. She states approximately 2 weeks ago she was walking around the campground when she tripped and fell and sustained a laceration/skin tear to her right arm. She states she saw her family doctor who informed her that the skin tear had multiple infections and she was placed on reportedly 3 different antibiotics that she took for 2 weeks. She states that she finished antibiotics on Sunday and after this noted that she was having pain and swelling in her hands knees feet and shoulders. She denies any repeat trauma and states that there is been no new exposures other than the antibiotics. She states she is waited a few days to see if symptoms would improve but they have not done so and secondary to this comes in for evaluation [facility] Medical History Benign neoplasm of stomach Diaphragmatic hernia Hyperlipidemia Hypertension IBS (irritable bowel syndrome) Non-smoker Post-menopausal Senile osteoporosis Wears partial dentures Home Medications calcium carbonate 500 mg-vitamin D3 2.5 mcg (100 unit) chewable tablet 1 ea PO BID 07/03/15 [History Last Taken Unknown] valsartan 160 mg-hydrochlorothiazide 12.5 mg tablet 1 tab PO DAILY 11/13/18 [History Last Taken Unknown] multivitamin 1 tab PO DAILY 11/23/21 [History Last Taken Unknown] potassium chloride 10 mEq capsule,extended release 10 meq PO DAILY 09/07/22 [History Last Taken Unknown] oxycodone-acetaminophen 5 mg-325 mg tablet (Percocet) 1 tab PO Q6H PRN pain 3 days #12 tabs 04/19/23 [Rx Last Taken Unknown] prednisone 20 mg tablet 20 mg PO DAILY 5 days #5 tabs 04/19/23 [Rx Last Taken Unknown] Allergy/AdvReac Type Severity Reaction Status Date / Time No Known Allergies Allergy Verified 04/19/23 06:23 Family History Mother Cancer lung-smoker Father Colon cancer Surgical History History of appendectomy History of esophagogastroduodenoscopy (EGD) History of esophagogastroduodenoscopy (EGD) History of Iron fundoplication Hx of colonoscopy Hx of dilation and curettage S/P cholecystectomy Social History Smoking Status: Never smoker alcohol intake: never substance use type: does not use caffeine: No what type of physical activity do you participate in: walking frequency: 3-4 times per week seatbelt use: always do you feel safe at home: Yes additional social history: Patient is retired ROS ROS ED Constitutional Constitutional ED: Denies chills or fever(s) Eyes Eyes: Denies change in vision ENT ENT ED: Denies sore throat Cardiovascular Cardiovascular: Denies chest pain Respiratory/Chest Respiratory/Chest: Denies cough or dyspnea Gastrointestinal Gastrointestinal: Denies abdominal pain, diarrhea, nausea or vomiting Genitourinary Genitourinary ED: Denies dysuria Musculoskeletal Musculoskeletal: Reports arthralgias Integumentary Reports rash Neurologic Neurologic: Denies headache(s) Hematologic/Lymphatic Hematologic/Lymphatic: Denies easy bleeding or easy bruising EXAM Physical Exam Const Vital Signs: 04/19/23 06:18 04/19/23 06:22 Temperature 97.3 F L Temperature Source Temporal Pulse Rate 86 Respiratory Rate 15 Respiratory Effort Normal Non-Labored Respiratory Pattern Normal Blood Pressure 161/82 H Blood Pressure Mean 108 Pulse Ox 98 Oxygen Delivery Method Room Air Positive well nourished and well developed General Appearance ED: well developed HEENT Reports moist mucous membranes HEENT Narrative: No tongue or lip swelling no oral lesions no airway edema or compromise Eyes PERRL and EOMs intact bilaterally Neck supple Neck Narrative: No nuchal rigidity or meningeal signs noted Resp normal respiratory effort and clear to auscultation bilaterally Resp Narrative: No nasal flaring retractions tachypnea or accessory muscle use Cardio regular rate and regular rhythm Rate: other Other Details: Heart is regular rate and rhythm without murmurs rubs or gallops Radial and carotid pulses are equal and symmetric GI normal to inspection, nondistended, normoactive bowel sounds, non-tender, non-distended and no masses Auscultation: normoactive bowel sounds Palpation: soft Extremity Extremity Narrative: Patient has erythema swelling and warmth along the metacarpal joints of the right and left hand. Similar soft tissue changes are present over the dorsal aspect of the metatarsals bilaterally. Patient also has soft tissue changes of erythema and warmth with slight swelling over the bilateral knees. There is increased pain with motion of the joints Neuro oriented x3 and CN's II-XII intact bilaterally Sensorium / Orientation: alert Psych mental status grossly normal Skin Skin Narrative: Soft tissue changes noted to the hands knees and feet as documented above Patient does have ecchymotic lesions to the arms and legs that she states are chronic in nature MDM MDM MDM Narrative Medical decision making narrative: Patient presented to the ER hypertensive but does have a past medical history of this and otherwise afebrile with stable vitals. She reported multiple arthralgias as well as mild skin discoloration. She reported there was no repeat trauma since her initial fall where she cut her right arm. She reports her only new exposures/medications were the antibiotic she was on for the infection. Differential diagnosis is for septic joint versus gout versus serum sickness versus potential autoimmune disease such as rheumatoid arthritis. As the patient has swelling warmth and redness located over multiple joints and these are systemic in nature I do feel this is most likely related to serum sickness especially with her recent prolonged antibiotic use. Secondary to this basic blood work will be obtained to check for potential leukocytosis inflammatory changes or elevation to the uric acid for potential gout. I do not feel there is need for imaging studies at this time. Patient will be treated with IV steroids as well as pain control. I feel that if blood work does not show elevation to her uric acid and there is no significant electrolyte derangement and her symptoms are improved with treatment that she will be safe for discharge on symptomatic medications. As blood work is still pending the patient will be signed out to the day physician Dr. Villegas pending results History & Record Review Discussion w/independent historian: Patient and Significant other Lab Data Labs: Laboratory Results - last 24 hr 04/19/23 06:45 WBC 8.8 RBC 3.76 L Hgb 10.3 L Hct 33.0 L MCV 87.8 MCH 27.4 MCHC 31.2 L RDW Std Deviation 49.7 H RDW Coeff of Danita 15.6 H Plt Count 279 MPV 10.7 Immature Gran % (Auto) 0.600 Neut % (Auto) 73.8 H Lymph % (Auto) 11.5 L [place] % (Auto) 7.9 Eos % (Auto) 5.5 H Baso % (Auto) 0.7 Absolute Neuts (auto) 6.5 Absolute Lymphs (auto) 1.01 Nucleated RBC % 0 Discharge Plan Triage Chief Complaint: Other, Pain/Inj ED Provider: David Gonzalez Dx/Rx/DC Orders Clinical Impression: Arthralgia, Serum sickness due to drug, Hyperlipidemia, Hypertension Instructions: ED Arthralgia Prescriptions: New oxycodone-acetaminophen [Percocet] 5-325 mg tablet 1 tab PO Q6H PRN (Reason: pain) 3 Days Qty: 12 0RF prednisone 20 mg tablet 20 mg PO DAILY 5 Days Qty: 5 0RF No Action valsartan-hydrochlorothiazide 160-12.5 mg tablet 1 tab PO DAILY multivitamin Tablet 1 tab PO DAILY potassium chloride 10 mEq capsule, extended release 10 meq PO DAILY calcium carbonate-vitamin D3 1 EACH tablet,chewable 1 ea PO BID Primary Care Provider: Calos Morrison Chi Referrals: Calos Morrison Chi, MD [Primary Care Provider] - Activity Restrictions/Additional Instructions: Please take the steroid daily as directed to reduce inflammatory process which should help control your symptoms. Follow-up with your family doctor for repeat evaluation and return to the ER should you have any further concerns or your symptoms are not controlled with outpatient treatment
[2023-04-19] MEDS: Morphine 4 MG/ML Syringe IV (06:46)
[2023-04-19] MEDS: Ondansetron 4 MG/2 ML Vial IV (06:46)
[2023-04-19] MEDS: MethylPREDNISolone 125 MG/2 ML Vial IV (06:53)
[2023-04-19 06:55] LABS: Absolute Lymphocyte Count 1.01 X10^3/uL (0.83-4.51); Absolute Neutrophil Count 6.5 X10^3/uL (2.0-7.7); Basophil# 0.06 X10^3/uL; Basophil% 0.7 % (0-1); Eosinophil# 0.48 X10^3/uL; Eosinophils% 5.5 % (0-5); Hemoglobin 10.3 g/dL (12.0-15.0); Lymphocyte # 1.01 X10^3/ul (0.83-4.51); Lymphocyte % 11.5 % (19-41); Mean Corp Hgb Conc 31.2 g/dL (32-36); Mean Corpuscular Hgb 27.4 pg (27.0-32.0); Mean Corpuscular Volume 87.8 fL (81-99); Mean Platelet Vol. 10.7 fl (6.2-12.0); Monocyte# 0.69 X10^3/uL; Monocyte% 7.9 % (0-10); NRBC Flagged by Analyzer 0 % (0-5); Neutrophil # 6.48 X10^3/uL (2.7-7.7); Neutrophil % 73.8 % (47-70); Platelet Count 279 K/mm3 (150-450); RBC Distribution Width CV 15.6 % (11.6-14.6); RBC Distribution Width SD 49.7 fl (35.1-43.9); Red Blood Count 3.76 M/mm3 (4.2-5.4); White Blood Count 8.8 K/mm3 (4.4-11.0)
[2023-04-19 07:12] LABS: Anion Gap 6 (5-15); BUN 39 mg/dL (7-18); BUN/Creat Ratio 35.8 RATIO (10-20); Calcium,Total 8.8 mg/dL (8.5-10.1); Chloride 110 mmol/L (98-107); Creatinine, Serum 1.09 mg/dL (0.55-1.02); EST Glomerular Filtration Rate 52 mL/min (>60); Est Glom Filt Rate - Afr Amer 62 mL/min (>60); Estimated Creatinine Clearance 35.19 ml/min; Glucose 113 mg/dL (74-106); Potassium 3.9 mmol/L (3.5-5.1); Sodium Level 139 mmol/L (136-145)
[2023-04-19 07:34] LABS: Erythrocyte Sedimentation Rate 79 mm/hr (0-30)
[2023-04-19 07:42] VITALS: BP 124/69; PULSE 72; RESP 15; O2SAT 98
== END 2023-04-19 07:45 | disposition home or self-care (01) ==
PROVIDERS: Emergency Provider Emergency Medicine; PCP Family Medicine Geriatric Medicine; Visit Provider Emergency Medicine
DX: M79.641 Pain in right hand (principal); M79.642 Pain in left hand; I10 Essential (primary) hypertension; E78.5 Hyperlipidemia, unspecified; Z79.899 Other long term (current) drug therapy
CPT/HCPCS: 80048; 84550; 85025; 85652; 86140; 96374; 96375; 99283; A4216; J2405

== ENCOUNTER → 2023-04-23 | Outpatient (CLI) | payer MEDICARE, SELFPAY ==
[2023-04-23 12:56] LABS: Erythrocyte Sedimentation Rate 78 mm/hr (0-30)
[2023-04-23 12:59] LABS: Absolute Lymphocyte Count 0.79 X10^3/uL (0.83-4.51); Absolute Neutrophil Count 11.2 X10^3/uL (2.0-7.7); Basophil# 0.04 X10^3/uL; Basophil% 0.3 % (0-1); Hematocrit 35.7 % (37-47); Hemoglobin 11.3 g/dL (12.0-15.0); Lymphocyte # 0.79 X10^3/ul (0.83-4.51); Lymphocyte % 6.4 % (19-41); Mean Corp Hgb Conc 31.7 g/dL (32-36); Mean Corpuscular Hgb 27.6 pg (27.0-32.0); Mean Corpuscular Volume 87.1 fL (81-99); Mean Platelet Vol. 10.5 fl (6.2-12.0); Monocyte# 0.19 X10^3/uL; Monocyte% 1.5 % (0-10); NRBC Flagged by Analyzer 0 % (0-5); Neutrophil # 11.16 X10^3/uL (2.7-7.7); Neutrophil % 90.6 % (47-70); Platelet Count 418 K/mm3 (150-450); RBC Distribution Width CV 15.5 % (11.6-14.6); RBC Distribution Width SD 49.1 fl (35.1-43.9); White Blood Count 12.3 K/mm3 (4.4-11.0)
[2023-04-23 13:04] LABS: Anion Gap 6 (5-15); BUN 23 mg/dL (7-18); BUN/Creat Ratio 22.3 RATIO (10-20); Calcium,Total 9.5 mg/dL (8.5-10.1); Chloride 104 mmol/L (98-107); Creatinine, Serum 1.03 mg/dL (0.55-1.02); EST Glomerular Filtration Rate 55 mL/min (>60); Est Glom Filt Rate - Afr Amer 67 mL/min (>60); Glucose 200 mg/dL (74-106); Potassium 3.9 mmol/L (3.5-5.1); Sodium Level 137 mmol/L (136-145)
== END | disposition home or self-care (01) ==
LOC: POLAB3 12:13
PROVIDERS: PCP Family Medicine Geriatric Medicine; Visit Provider Family Medicine Geriatric Medicine
DX: D64.9 Anemia, unspecified (principal); M06.4 Inflammatory polyarthropathy; I10 Essential (primary) hypertension
CPT/HCPCS: 36415; 80048; 85025; 85652; 86140; 87040

== ENCOUNTER → 2023-08-07 | Outpatient (CLI) | payer MEDICARE, SELFPAY ==
[2023-08-07 12:19] LABS: Absolute Lymphocyte Count 1.36 X10^3/uL (0.83-4.51); Absolute Neutrophil Count 5.1 X10^3/uL (2.0-7.7); Basophil# 0.07 X10^3/uL; Eosinophils% 1.4 % (0-5); Hemoglobin 11.8 g/dL (12.0-15.0); Lymphocyte # 1.36 X10^3/ul (0.83-4.51); Lymphocyte % 19.2 % (19-41); Mean Corp Hgb Conc 30.3 g/dL (32-36); Mean Corpuscular Hgb 27.3 pg (27.0-32.0); Mean Corpuscular Volume 90.1 fL (81-99); Mean Platelet Vol. 11.8 fl (6.2-12.0); Monocyte# 0.46 X10^3/uL; Monocyte% 6.5 % (0-10); NRBC Flagged by Analyzer 0 % (0-5); Neutrophil % 71.8 % (47-70); Platelet Count 306 K/mm3 (150-450); RBC Distribution Width CV 14.6 % (11.6-14.6); RBC Distribution Width SD 48.4 fl (35.1-43.9); Red Blood Count 4.33 M/mm3 (4.2-5.4); White Blood Count 7.1 K/mm3 (4.4-11.0)
[2023-08-07 12:47] LABS: ALB/GLOB Ratio 0.9 RATIO (0.9-2.4); AST(SGOT) 23 U/L (15-37); Alanine Aminotransfer ALT/SGPT 18 U/L (13-56); Albumin, Serum 3.5 g/dL (3.2-5.0); Alkaline Phosphatase 98 U/L (45-117); Anion Gap 5 (5-15); BUN 19 mg/dL (7-18); BUN/Creat Ratio 20.9 RATIO (10-20); Calcium,Total 9.2 mg/dL (8.5-10.1); Chloride 109 mmol/L (98-107); Creatinine, Serum 0.91 mg/dL (0.55-1.02); EST Glomerular Filtration Rate 63 mL/min (>60); Est Glom Filt Rate - Afr Amer 77 mL/min (>60); Globulin 3.8 g/dL (2.2-4.2); Glucose 97 mg/dL (74-106); Protein, Total 7.3 g/dL (6.4-8.2); Sodium Level 142 mmol/L (136-145); Thyroid Stim Hormone (TSH) 3.01 uIU/mL (0.358-3.74)
[2023-08-07 12:52] LABS: Vitamin D,25 Hydroxy 39.5 ng/mL
== END | disposition home or self-care (01) ==
LOC: POLAB3 10:42
PROVIDERS: PCP Family Medicine Geriatric Medicine; Visit Provider Family Medicine Geriatric Medicine
DX: I10 Essential (primary) hypertension (principal); E55.9 Vitamin D deficiency, unspecified
CPT/HCPCS: 36415; 80053; 82306; 84443; 85025

== ENCOUNTER → 2023-12-19 | Outpatient (CLI) | payer MEDICARE, SELFPAY ==
--- NOTE | 2023-12-19 14:32 | BI_ITS ---
MAMMOGRAPHY - BILATERAL SCREENING 3-D TOMOSYNTHESIS REASON FOR EXAM: Female, 78 years old. breast cancer screening PERTINENT HISTORY: No significant family history. TECHNIQUE: 2-D mammograms and 3-D Tomosynthesis of the breast (s) were performed. CAD was performed. COMPARISON: 12/13/2022 FINDINGS: The breast composition is Extermely dense tissue. Scattered benign calcifications are seen. No dense spiculated masses or suspicious microcalcifications are identified. No architectural distortion is identified. There is no skin thickening or retraction. There has been no significant change since the prior study. Bilateral benign vascular calcifications can be associated with coronary artery disease. BI/SCRN MAMM (CAD)W/[place] BILAT IMPRESSION: No mammographic signs of malignancy. Routine yearly mammograms recommended. ASSESSMENT CATEGORY: BIRADS Category 2: Benign. A letter regarding these results will be sent to the patient by the facility within 30 days. FOLLOW UP RECOMMENDATION: Yearly follow up mammogram recommended. (A) Approximately 10% of breast cancers are not detected by mammography. A normal mammogram should not delay biopsy of a clinically suspicious abnormality. Electronically Signed: Jonny Ha MD at 8:39 EDT ,
== END | disposition home or self-care (01) ==
PROVIDERS: PCP Family Medicine Geriatric Medicine; Referring Provider Family Medicine Geriatric Medicine; Visit Provider Nurse Practitioner Women's Health
DX: Z12.31 Encounter for screening mammogram for malignant neoplasm of breast (principal); R68.83 Chills (without fever)
CPT/HCPCS: 77063; 77067; 87631

== ENCOUNTER → 2024-02-11 | Outpatient (CLI) | payer MEDICARE, SELFPAY ==
[2024-02-11 14:21] LABS: Absolute Lymphocyte Count 1.27 X10^3/uL (0.83-4.51); Absolute Neutrophil Count 6.2 X10^3/uL (2.0-7.7); Basophil# 0.06 X10^3/uL; Basophil% 0.7 % (0-1); Eosinophil# 0.12 X10^3/uL; Eosinophils% 1.5 % (0-5); Hematocrit 38.8 % (37-47); Hemoglobin 12.5 g/dL (12.0-15.0); Lymphocyte # 1.27 X10^3/ul (0.83-4.51); Lymphocyte % 15.7 % (19-41); Mean Corp Hgb Conc 32.2 g/dL (32-36); Mean Corpuscular Hgb 27.7 pg (27.0-32.0); Mean Corpuscular Volume 85.8 fL (81-99); Mean Platelet Vol. 12.1 fl (6.2-12.0); Monocyte# 0.44 X10^3/uL; Monocyte% 5.4 % (0-10); NRBC Flagged by Analyzer 0 % (0-5); Neutrophil # 6.19 X10^3/uL (2.7-7.7); Neutrophil % 76.5 % (47-70); Platelet Count 242 K/mm3 (150-450); RBC Distribution Width SD 47.5 fl (35.1-43.9); Red Blood Count 4.52 M/mm3 (4.2-5.4); White Blood Count 8.1 K/mm3 (4.4-11.0)
[2024-02-11 14:59] LABS: Vitamin D,25 Hydroxy 41.9 ng/mL
[2024-02-11 15:06] LABS: ALB/GLOB Ratio 0.9 RATIO (0.9-2.4); AST(SGOT) 30 U/L (15-37); Alanine Aminotransfer ALT/SGPT 26 U/L (13-56); Albumin, Serum 3.5 g/dL (3.2-5.0); Alkaline Phosphatase 96 U/L (45-117); Anion Gap 8 (5-15); BUN 13 mg/dL (7-18); BUN/Creat Ratio 14.8 RATIO (10-20); Calcium,Total 10.3 mg/dL (8.5-10.1); Chloride 109 mmol/L (98-107); Creatinine, Serum 0.88 mg/dL (0.55-1.02); EST Glomerular Filtration Rate 66 mL/min (>60); Est Glom Filt Rate - Afr Amer 80 mL/min (>60); Globulin 3.9 g/dL (2.2-4.2); Glucose 90 mg/dL (74-106); Potassium 3.1 mmol/L (3.5-5.1); Protein, Total 7.4 g/dL (6.4-8.2); Sodium Level 143 mmol/L (136-145)
== END | disposition home or self-care (01) ==
LOC: POLAB3 13:26
PROVIDERS: PCP Family Medicine Geriatric Medicine; Visit Provider Family Medicine Geriatric Medicine
DX: I10 Essential (primary) hypertension (principal); E55.9 Vitamin D deficiency, unspecified
CPT/HCPCS: 36415; 80053; 82306; 84443; 85025

== ENCOUNTER → 2024-02-15 | Outpatient (CLI) | payer MEDICARE, SELFPAY | END | disposition home or self-care (01) | LOC: LABSPEC 09:45 | PROVIDERS: PCP Family Medicine Geriatric Medicine; Referring Provider Family Medicine Geriatric Medicine; Visit Provider Family Medicine Geriatric Medicine | DX: R63.4 Abnormal weight loss (principal) | CPT/HCPCS: 82274 ==

== ENCOUNTER → 2024-03-03 | Outpatient (CLI) | payer MEDICARE, SELFPAY ==
--- NOTE | 2024-03-03 13:50 | CT_ITS ---
STUDY: CT CHEST, ABDOMEN T PELVIS WITH CONTRAST REASON FOR EXAM: Female, 78 years old. UNINTENTIONAL WEIGHT LOSS. Hypertension. RADIATION DOSAGE (If Supplied By Facility): CTDIvol = ( 7.69 ) mGy, DLP = ( 481.33 ) mGycm TECHNIQUE: Transaxial imaging was performed following intravenous administration of IV 75mL Isovue-370. Individualized dose optimization techniques were used for this CT. COMPARISON: Comparison is made with prior study dated August 31, 2020. FINDINGS: CHEST There is elevation of the posterior left hemidiaphragm. Hyperinflation. There is evidence of scarring at the right lung apex. There is no demonstrated pleural abnormality. Minimal coronary artery calcification. Normal mediastinum. Normal hilar regions. Normal unenhanced pulmonary arteries. There is atherosclerotic calcification of the aortic arch. There are degenerative changes of the thoracic spine. Increased thoracic kyphosis. ABDOMEN Dilatation of the intrahepatic biliary ducts. The gallbladder is contracted. Normal spleen. Normal pancreas. Normal bilateral adrenal glands. Bilateral renal cysts. Normal visualized stomach. Normal small intestine. There are multiple colonic diverticula consistent with diverticulosis. The appendix is visualized and appears normal. There is diffuse atherosclerotic calcification of the abdominal aorta, without a demonstrated aneurysm. Normal inferior vena cava. Normal retroperitoneum. Normal abdominal wall. Normal osseous structures. PELVIS Normal urinary bladder. There is no pelvic fluid. There is no pelvic lymphadenopathy or mass lesion. Normal visualized pelvic arteries. CT/CT Chest, Abd, Pel w/Contrast IMPRESSION: Scarring in the right lung apex. Stable small bilateral renal cysts. Status post cholecystectomy with the intrahepatic biliary ductal dilatation. Electronically Signed: Stephane Yates MD at 14:56 EDT ,
== END | disposition home or self-care (01) ==
PROVIDERS: PCP Family Medicine Geriatric Medicine; Referring Provider Family Medicine Geriatric Medicine; Visit Provider Family Medicine Geriatric Medicine
DX: R63.4 Abnormal weight loss (principal)
CPT/HCPCS: 71260; 74177; Q9967

== ENCOUNTER 2024-04-25 10:30 | Outpatient (RCR) | payer MEDICARE, SELFPAY ==
--- NOTE | 2024-04-22 14:35 | HP.SP.EV_ITS ---
Visit History Visit Info Date of Eval: 04/15/24 Visit: 1 Marketing Clerk: JOSE MIGUEL History Attending Doctor: Referring Doctor: Reason for Referral: [facility]ENESS/RX HERE Results: pt denies any significant medical history - no surgeries and recent medical events. Pt lives with her . Pt used to work in customer service. No family history of neurological disorders. No other physical symptoms besides - pt's nose has been running a lot - no medication are taken for this. - unexplained weight loss of 15 lbs in one month. Another 1 lb weight loss since then. Pt now weights about 103 lbs - no changes in her diet and exercise. Other Relevant Medical History/Diagnoses/Surgery: pt is struggling to talk correctly - hoarseness. Pt had a scope completed by Dr. Huitron (ENT) and her results were normal. it comes and goes and she cannot associate it with any specific or any feeling. onset was a month ago. Pt spoke to her family doctor about if she could have had a stroke, but her family doctor was not concerned. Pt saw GI about 2 weeks ago for another scope and everything appeared to be no rmal. Medications related to this diagnosis: Valsartin Smoking Status: Never smoker Diagnosis Diagnosis: dysarthria Pain Is pain an issue with your current prescribed condition?: No Personal Preferred language: Sinhala Patient Allergies Allergies Allergies: Allergies No Known Allergies Allergy (Verified 12/12/23 13:00) Objective Dysarthira/Motor Speech Intelligibility Phonemes: Severe Single Words: Severe Phrases: Severe Sentences: Severe Paragraphs: Severe Conversation: Severe Volume Volume: WFL Sounds Sounds in Error: Pt with overall hypernasality. Pt's speech began less clear with multi-syllabic words and words with consonant blends. Consistency w/Multiple Repetitions Words: Mild Phrases: Moderate Observation Inconsistent Errors: Yes Awareness/Strategy Use Aware of motor speech impairment, unable to use strategies to improve intelligibility: Yes Comments Assessment: -: PA x5 - nasalized Ka x5 - nasalized Ta x5 - nasalized Da x5 - produced an dag x3/5 and nasalized Pa-Ta-Ka: slow alternation, nasalized Pa-Ta-Ka: fast alternation, nasalized and imprecise consonants Sustained ah - trial 1) 10.8 seconds - trial 2) 14.98 seconds - trial 3) 16.96 seconds *noted strained vocal quality Alternating between s-z. Pt was unable to create a /z/ phoneme. Pt also completed trials of: pitch glide up pitch glide down pitch glide up then down Pt with trouble shifting pitches and sustaining the sound during this exercise nasal emission sentence: inappropriate nasal emissions noted during 4/4 trials Reference: Neuro-QoL instrument HDQLIFE - Speech Difficulties In the past 7 days. It was difficult for other people to understand me.: Always Is was difficult to speak clearly?: Always In the past 7 days.. How often did you limit your social activites because you had difficulty speaking?: Often In the past 7 days... I had trouble speaking.: Very much I was frustrated by my speech difficulties.: Very much How much DIFFICULTY do you have... ...saying what you want to say?: A lot of difficulty Score HDQLIFE Speech Difficulties Raw Score: 28 HDQLIFE Speech Difficulties T - Score: 68 Radiation Oncology Patient Plan Plan Plan: Will recommend Pt for weekly outpatient speech therapy intervention address severe dysarthria. Pt would benefit from verbal and visual modeling, verbal/visual and tactile cuing, repeated practice, and immediate feedback to improve articulation and coordination. Without skilled intervention, Pt is at risk for difficulty communicating basic, medical, emergent, social wants & needs, and interacting with family/friends at home, and during social interactions. Recommendations Treatment Warranted: Yes Treatment Warranted: Other: Comment: dysarthria ST recommends a referral to a neurologist to determine the cause of the dysarthria. Progress Prognosis: Good Frequency Frequency: 1x/Week Duration: 2-4 Months Goals that are Established Determination:: Goals will be added/modified as deemed necessary and appropriate. Therapy will be discontinued when results of re-evaluation indicate therapy is no longer needed or lack of progress has been documented. Goal #1-5 Goal #1: The pt will demonstrate and utilize recommended compensatory strategies and speech intelligibility techniques increased reduced rate of speech, exaggerated articulation, and phrasing to reduce articulation errors during conversation with up to minimal verbal cues across 3 measured sessions to facilitate increased expressive communication abilities in the home and social environments. Goal #2: Pt will independently utilize compensatory strategies (i.e. reducing distractions, facing speaker, slow rate, exaggerating speech sound on difficult words) to aid in communication at home as measured an overall score of 3 on self & caregiver reports during 3 measured sessions to help facilitate increased expressive communication abilities in the home and social environments. Education Patient has Indicated that the Following Identified Educational Needs: None The Patient has indicated that they have no educational or learning abilities that may effect their care.: Yes Patient Instruction Patient Education: Treatment Plan and Goals Person Taught: Patient Teaching Method: Demonstration Response to teaching: Verbalize Understanding
--- NOTE | 2024-06-17 11:12 | HP.SP.DC_ITS ---
ST Discharge Summary Discharged: Discharge: Pt was seen for initial speech& language evaluation at [facility] on 04/15/24 s.p. complaints of hoarseness and changes in vocal quality without a known cause. Pt attended 1 session to target dysarthria and ST recommended a neurological consult and a follow up with her PCP. Pt is being discharged from speech therapy caseload on this date, 06/17/24, secondary to canceling future speech therapy appointments to undergo medical testing. Thank you for allowing me to participate the care of your Pt. Will reevaluate at Pt?s request following script from physician.
== END 2024-04-25 19:00 | disposition home or self-care (01) ==
LOC: SP 10:30
PROVIDERS: PCP Family Medicine Geriatric Medicine; Referring Provider Otolaryngology; Visit Provider Otolaryngology
DX: R49.0 Dysphonia (principal)
CPT/HCPCS: 92507; 92522

== ENCOUNTER → 2024-05-26 | Outpatient (CLI) | payer MEDICARE, SELFPAY | END | disposition home or self-care (01) | LOC: POLAB3 16:04 | PROVIDERS: PCP Family Medicine Geriatric Medicine; Visit Provider Family Medicine Geriatric Medicine | DX: R68.83 Chills (without fever) (principal) | CPT/HCPCS: 87631 ==

== ENCOUNTER → 2024-05-28 | Outpatient (CLI) | payer MEDICARE, SELFPAY ==
--- NOTE | 2024-05-28 14:18 | NEURO ---
NCS and/or EMG Patient Report Ordering Doctor: Calos Morrison Chi DATE OF SERVICE: 05/28/24 Nia presents with complaints of hoarse voice and weight loss. She reports being less active. She denies any difficulty walking and denies weakness. Electrodiagnostic findings: Left median motor nerve demonstrates normal distal latency, amplitude with borderline reduced conduction velocity. Left ulnar motor response is within normal limits. Left peroneal and tibial motor responses are normal. Prolonged left median sensory latency at the wrist. Normal left ulnar and radial sensory responses normal left superficial peroneal response. Borderline prolonged sural latency. Needle EMG testing was performed of the left upper and left lower limb. There was presence of 1+ fasciculations in the left gastrocnemius without the presence of positive sharp waves or fibrillations. No other denervation was noted in testing of the left upper and left lower limb. No denervation was noted in the cervical paraspinals, thoracic paraspinals or lumbar paraspinals. Electrodiagnostic impression: This is a an abnormal study. 1. Electrodiagnostic findings suggestive of a left-sided median mononeuropathy. This is consistent with a mild left carpal tunnel syndrome. 2. There is no EMG evidence for motor neuron disease based on today's examination. There is one area of fasciculation noted in the left gastrocnemius without the presence of positive sharp waves or fibrillations. There was no denervation noted in the cervical lumbar or thoracic paraspinal musculature. Recommend repeat testing in 3 to 4 months if symptoms progress persist or there is progressive weakness in order to reevaluate Multi Select Codes Neurology Neurology Interp Codes: 84459-45 Musc test done w/n test comp (interp) (2) and 80756-08 Nrv cndj test 9-10 studies (interp)
== END | disposition home or self-care (01) ==
LOC: PSN 06:39
PROVIDERS: PCP Family Medicine Geriatric Medicine; Referring Provider Family Medicine Geriatric Medicine; Visit Provider Family Medicine Geriatric Medicine
DX: G12.29 Other motor neuron disease (principal); R25.3 Fasciculation
CPT/HCPCS: 95886; 95911

== ENCOUNTER 2024-05-31 05:41 | Emergency (ER) | payer MEDICARE, SELFPAY ==
[2024-05-31 05:43] VITALS: BP 186/95; PULSE 91; RESP 18; TEMP 36.7; O2SAT 98; BMI 17.5
[2024-05-31 05:46] VITALS: O2SAT 98
--- NOTE | 2024-05-31 06:09 | EX.ED.DYSGE1 ---
HPI <Dr. Rodney Duran DO - Last Filed: 05/31/24 07:40> History of Present Illness Chief Complaint: Weakness Informant: patient Onset/Context/Timing Onset: Month(s) (3) Context: Gradual Onset Timing: Continuous Quality: Shaking Location: Generalized Worsened by: Nothing Relieved by: Nothing Narrative Narrative: Patient presents with generalized weakness, shaking, difficulty swallowing, and hoarseness that has been getting progressively worse over the last 3 months. Patient states she has a hoarse voice and has postnasal drainage down the back of her throat. Patient states she has been having symptoms of shaking all over. Patient states she has been having difficulty swallowing but denies any nausea or vomiting. Patient admits to some shortness of breath and mild cough. Patient admits to chills but denies any fevers. Patient also admits to some left flank pain. Patient states she had recent nerve conduction testing which was normal. Patient is concerned that she may have had a stroke. [facility] <Dr. Rodney Duran DO - Last Filed: 05/31/24 07:40> [facility] Medical History Wears partial dentures Post-menopausal Non-smoker Hyperlipidemia Senile osteoporosis IBS (irritable bowel syndrome) Diaphragmatic hernia Benign neoplasm of stomach Hypertension Home Medications ?Medication ?Instructions ?Recorded ?Last Taken ?Type calcium 500 mg (as carbonate)-D3 1 ea PO BID 07/03/15 Unknown History 2.5 mcg (100 unit) chewable tablet valsartan 160 1 tab PO DAILY 11/13/18 Unknown History mg-hydrochlorothiazide 12.5 mg tablet multivitamin 1 tab PO DAILY 11/23/21 Unknown History potassium chloride 10 mEq 10 meq PO DAILY 09/07/22 Unknown History capsule,extended release prednisone 20 mg tablet 20 mg PO DAILY 5 days #5 tabs 04/19/23 Unknown Rx Allergy/AdvReac Type Severity Reaction Status Date / Time No Known Allergies Allergy Verified 05/31/24 05:42 Family History Mother Cancer lung-smoker Father Colon cancer Surgical History History of Iron fundoplication Hx of dilation and curettage Hx of colonoscopy History of esophagogastroduodenoscopy (EGD) S/P cholecystectomy History of esophagogastroduodenoscopy (EGD) History of appendectomy Social History Smoking Status: Never smoker alcohol intake: never substance use type: does not use caffeine: No what type of physical activity do you participate in: walking frequency: 3-4 times per week seatbelt use: always do you feel safe at home: Yes additional social history: Patient is retired ROS <Dr. Rodney Duran DO - Last Filed: 05/31/24 07:40> ROS ED Constitutional Constitutional ED: Reports chills; Denies fever(s) Eyes Eyes: Denies blurry vision or change in vision ENT ENT ED: Reports rhinorrhea and sore throat Cardiovascular Cardiovascular: Denies chest pain or palpitations Respiratory/Chest Respiratory/Chest: Reports cough and dyspnea Gastrointestinal Gastrointestinal: Denies nausea or vomiting Genitourinary Genitourinary ED: Denies dysuria or hematuria Musculoskeletal Musculoskeletal: Reports back pain; Denies neck pain Integumentary Denies abscess or rash Neurologic Neurologic: Reports weakness; Denies headache(s) Allergic/Immunologic Allergic/Immunologic ED: Denies mouth swelling or urticaria EXAM <Dr. Rodney Duran, - Last Filed: 05/31/24 07:40> Physical Exam Const Vital Signs: 05/31/24 05:43 05/31/24 05:46 05/31/24 05:46 Temperature 98.0 F Temperature Source Oral Pulse Rate 91 Respiratory Rate 18 Respiratory Effort Short of Breath Labored Short of Breath Labored Respiratory Depth Normal Respiratory Pattern Normal Normal Blood Pressure 186/95 H Blood Pressure Mean 125 Pulse Ox 98 Oxygen Delivery Method Room Air Room Air 05/31/24 07:42 Temperature Temperature Source Pulse Rate 89 Respiratory Rate 18 Respiratory Effort Respiratory Depth Respiratory Pattern Blood Pressure 176/101 H Blood Pressure Mean 126 Pulse Ox 98 Oxygen Delivery Method Room Air Positive well nourished and well developed General Appearance ED: well developed and NAD HEENT Reports moist mucous membranes Neck supple and no JVD Resp normal respiratory effort and clear to auscultation bilaterally Cardio regular rate and regular rhythm GI non-tender and non-distended Palpation: soft Back/Spine General Back: CVA tenderness left Neuro oriented x3, CN's II-XII intact bilaterally and no sensory deficits noted Neuro Narrative: There is some tremor in the left upper and lower extremities when she holds her arms and legs out against gravity. There are no sensory deficits noted. Deep tendon reflexes are 2/4 bilaterally in the upper and lower extremities. Sensorium / Orientation: alert Motor Exam: strength 5/5 throughout Psych mental status grossly normal <Dr. Sascha Bull MD - Last Filed: 05/31/24 09:02> Physical Exam Const Vital Signs: 05/31/24 05:43 05/31/24 05:46 05/31/24 05:46 Temperature 98.0 F Temperature Source Oral Pulse Rate 91 Respiratory Rate 18 Respiratory Effort Short of Breath Labored Short of Breath Labored Respiratory Depth Normal Respiratory Pattern Normal Normal Blood Pressure 186/95 H Blood Pressure Mean 125 Pulse Ox 98 Oxygen Delivery Method Room Air Room Air 05/31/24 07:42 Temperature Temperature Source Pulse Rate 89 Respiratory Rate 18 Respiratory Effort Respiratory Depth Respiratory Pattern Blood Pressure 176/101 H Blood Pressure Mean 126 Pulse Ox 98 Oxygen Delivery Method Room Air MDM <Dr. Rodney Duran DO - Last Filed: 05/31/24 07:40> [facility] MDM Narrative Medical decision making narrative: Differential diagnosis includes stroke, intracranial bleeding, peripheral neuropathy, ALS, multiple sclerosis, electrolyte abnormality, viral upper respiratory infection, urinary tract infection, pneumonia, cardiac dysrhythmia, and cardiac ischemia. CT scan of the brain will be obtained to assess for stroke and intracranial bleeding. EKG will be obtained to assess for cardiac dysrhythmia and cardiac ischemia. Chest x-ray will be obtained to assess for pneumonia and bronchitis. CBC will be obtained to assess for leukocytosis and anemia. Basic metabolic profile will be obtained to assess for electrolyte abnormality and renal function. Urinalysis will be obtained to assess for urinary tract infection and hematuria. High-sensitivity troponin will be obtained to assess for cardiac ischemia. COVID-19, influenza, and RSV PCR will be obtained to assess for viral illness. Lab Data Attestation: I reviewed the patient's lab results. Lab results narrative: CBC was reviewed and was within normal limits. Basic metabolic profile was reviewed. BUN was 30 and creatinine was 1.05. Glucose was slightly elevated at 107. The remainder was essentially within normal limits. High-sensitivity troponin was reviewed and was normal at 4. Urinalysis was reviewed. There is no evidence of urinary tract infection or hematuria. Labs: Laboratory Results - last 24 hr 05/31/24 05/31/24 05:50 06:41 WBC 8.7 RBC 4.75 Hgb 13.7 Hct 41.9 MCV 88.2 MCH 28.8 MCHC 32.7 RDW Std Deviation 46.4 H RDW Coeff of Danita 14.4 Plt Count 276 MPV 11.6 Immature Gran % (Auto) 0.300 Neut % (Auto) 65.0 Lymph % (Auto) 25.1 [place] % (Auto) 8.4 Eos % (Auto) 0.3 Baso % (Auto) 0.9 Absolute Neuts (auto) 5.6 Absolute Lymphs (auto) 2.18 Nucleated RBC % 0 Sodium 144 Potassium 3.1 L Chloride 109 H Carbon Dioxide 30.0 Anion Gap 5 BUN 30 H Creatinine 1.05 H Estim Creat Clear Calc 30.79 Est GFR (MDRD) Af Amer 65 Est GFR (MDRD) Non-Af 54 L BUN/Creatinine Ratio 28.6 H Glucose 107 H Calcium 9.7 Troponin I High Sens 4 Urine Color Yellow Urine Clarity Clear Urine pH 5.0 Ur Specific [place] 1.020 Urine Protein 15 H Urine Glucose (UA) Normal Urine Ketones Negative Urine Occult Blood 10 H Urine Nitrite Negative Urine Bilirubin Negative Urine Urobilinogen Normal Ur Leukocyte Esterase Negative Urine RBC 0 SEEN Urine WBC 0-5 SEEN Ur Squamous Epith Cells 0-5 SEEN Urine Bacteria 0 SEEN Hyaline Casts 0-5 SEEN Urine Mucus 0 SEEN Radiography Diagnostic Testing: Clinical Impression(s) from Imaging Studies Brain CT 05/31/24 06:26 IMPRESSION: No acute intracranial process identified. Mild chronic involutional and white matter changes. Electronically Signed: Barbara Silva MD at 8:38 EST Reading Location ID and State: [facility] Tel , Service support , EKG Initial EKG: Attestation: I personally reviewed and interpreted this EKG as follows: Interpretation: Sinus Rhythm (67), No Acute Injury Pattern and LAFB Comments: EKG was obtained. On my independent interpretation, shows normal sinus rhythm with a rate of 67. OR interval was normal at 142 ms. QRS interval was normal at 86 ms. QTc interval was normal at 416 ms. There is left axis deviation at -67. There is a left anterior fascicular block noted. There are no acute ST or T wave changes noted. Prior EKG tracings: available for review Prior: Unchanged (07/25/2020) Treatment and Re-Evaluation :: Patient was advised of her findings. Care of the patient will be turned over the oncoming physician pending CT scan results and viral antigen results. Patient understood and was agreeable plan. All questions were answered. <Dr. Sascha Bull MD - Last Filed: 05/31/24 09:02> [facility] Lab Data Labs: Laboratory Results - last 24 hr 05/31/24 05/31/24 05:50 06:41 WBC 8.7 RBC 4.75 Hgb 13.7 Hct 41.9 MCV 88.2 MCH 28.8 MCHC 32.7 RDW Std Deviation 46.4 H RDW Coeff of Danita 14.4 Plt Count 276 MPV 11.6 Immature Gran % (Auto) 0.300 Neut % (Auto) 65.0 Lymph % (Auto) 25.1 [place] % (Auto) 8.4 Eos % (Auto) 0.3 Baso % (Auto) 0.9 Absolute Neuts (auto) 5.6 Absolute Lymphs (auto) 2.18 Nucleated RBC % 0 Sodium 144 Potassium 3.1 L Chloride 109 H Carbon Dioxide 30.0 Anion Gap 5 BUN 30 H Creatinine 1.05 H Estim Creat Clear Calc 30.79 Est GFR (MDRD) Af Amer 65 Est GFR (MDRD) Non-Af 54 L BUN/Creatinine Ratio 28.6 H Glucose 107 H Calcium 9.7 Troponin I High Sens 4 Urine Color Yellow Urine Clarity Clear Urine pH 5.0 Ur Specific [place] 1.020 Urine Protein 15 H Urine Glucose (UA) Normal Urine Ketones Negative Urine Occult Blood 10 H Urine Nitrite Negative Urine Bilirubin Negative Urine Urobilinogen Normal Ur Leukocyte Esterase Negative Urine RBC 0 SEEN Urine WBC 0-5 SEEN Ur Squamous Epith Cells 0-5 SEEN Urine Bacteria 0 SEEN Hyaline Casts 0-5 SEEN Urine Mucus 0 SEEN Rapid antigen for influenza, COVID and RSV were all negative. Therefore will discharge patient to home. Radiography Diagnostic Testing: Clinical Impression(s) from Imaging Studies Brain CT 05/31/24 06:26 IMPRESSION: No acute intracranial process identified. Mild chronic involutional and white matter changes. Electronically Signed: Barbara Silva MD at 8:38 EST , Treatment and Re-Evaluation :: Patient was advised of her findings. Care of the patient will be turned over the oncoming physician pending CT scan results and viral antigen results. Patient understood and was agreeable plan. All questions were answered. CT reveals small vessel disease. There is no obvious stroke or hemorrhage. The CT was reviewed by Dr. Mancia and me. We were waiting for the formal read by radiologist. At this time waiting results of rapid antigen testing for COVID, influenza and RSV. Comments:: Dysphagia swallow assessment revealed no abnormality. Therefore will discharge to home for outpatient workup Discharge Plan Triage Chief Complaint: Weakness Other Complaint: Shortness of Breath ED Provider: Rodney Duran Dx/Rx/DC Orders Clinical Impression: Tremor, Dysphagia Instructions: ED Weakness (Uncertain Cause), ED Dysphagia (Adult) Prescriptions: No Action valsartan-hydrochlorothiazide 160-12.5 mg tablet 1 tab PO DAILY multivitamin Tablet 1 tab PO DAILY potassium chloride 10 mEq capsule, extended release 10 meq PO DAILY calcium carbonate-vitamin D3 1 EACH tablet,chewable 1 ea PO BID prednisone 20 mg tablet 20 mg PO DAILY 5 Days Qty: 5 0RF Primary Care Provider: Calos Morrison Chi Referrals: Calos Morrison Chi, MD [Primary Care Provider] - 5-7 Days Activity Restrictions/Additional Instructions: If you are unable to swallow liquids or solids return to the emergency department. Also return if you have any drooling. Print Language: Serbian Disposition Disposition: Home, Self Care
--- NOTE | 2024-05-31 06:26 | EKG12_ITS ---
Test Reason : WEAKNESS/SOB Blood Pressure : */* mmHG Vent. Rate : 67 BPM Atrial Rate : 67 BPM P-R Int : 142 ms QRS Dur : 86 ms QT Int : 394 ms P-R-T Axes : 43 -67 26 degrees QTcB Int : 416 ms Normal sinus rhythm Low voltage QRS Left anterior fascicular block Possible Lateral infarct , age undetermined Abnormal ECG Confirmed by MOLLY FERRARO, REGI ([id number]), development editor FAUSTINO KELLY ([id number]) on 06/04/2024 1:36:30 P M Referred By: Confirmed By: REGI BARNES MD
--- NOTE | 2024-05-31 06:26 | CT_ITS ---
HISTORY: Weakness. TECHNIQUE: Multiple axial images were obtained of the head without intravenous contrast. A radiation dose optimization technique was used for this scan. 233 images. COMPARISON: None. FINDINGS: BRAIN PARENCHYMA: Multiple foci and zones of low attenuation in the bilateral cerebral white matter compatible with chronic small vessel ischemic gliosis. No acute intra-axial hemorrhage identified. CSF SPACES: Mild volume loss. No midline shift or other significant mass effect. No acute extra-axial hemorrhage seen. OTHER: Intact calvarium. No significant air fluid levels in the paranasal sinuses or mastoid air cells. Bilateral lens resections. CT/Brain/Head without Contrast IMPRESSION: No acute intracranial process identified. Mild chronic involutional and white matter changes. Electronically Signed: Barbara Silva MD at 8:38 EST ,
[2024-05-31 06:55] LABS: Bacteria 0 SEEN /hpf (None Seen); Mucous, Urine 0 SEEN /hpf (<or=2+); Red Blood Cells-Urine 0 SEEN /hpf (0-5)
[2024-05-31 06:57] LABS: Absolute Lymphocyte Count 2.18 X10^3/uL (0.83-4.51); Absolute Neutrophil Count 5.6 X10^3/uL (2.0-7.7); Basophil# 0.08 X10^3/uL; Basophil% 0.9 % (0-1); Eosinophil# 0.03 X10^3/uL; Eosinophils% 0.3 % (0-5); Hematocrit 41.9 % (37-47); Hemoglobin 13.7 g/dL (12.0-15.0); Lymphocyte # 2.18 X10^3/ul (0.83-4.51); Lymphocyte % 25.1 % (19-41); Mean Corp Hgb Conc 32.7 g/dL (32-36); Mean Corpuscular Hgb 28.8 pg (27.0-32.0); Mean Corpuscular Volume 88.2 fL (81-99); Mean Platelet Vol. 11.6 fl (6.2-12.0); Monocyte# 0.73 X10^3/uL; Monocyte% 8.4 % (0-10); NRBC Flagged by Analyzer 0 % (0-5); Neutrophil # 5.63 X10^3/uL (2.7-7.7); Platelet Count 276 K/mm3 (150-450); RBC Distribution Width CV 14.4 % (11.6-14.6); RBC Distribution Width SD 46.4 fl (35.1-43.9); Red Blood Count 4.75 M/mm3 (4.2-5.4); White Blood Count 8.7 K/mm3 (4.4-11.0)
[2024-05-31 06:58] LABS: Color, Urine Yellow (Yellow); Glucose, Dipstick Normal (Normal); Ketone-Dipstick Negative (Negative); Leukocyte Esterase-Dipstick Negative /ul (Negative); Nitrite-Dipstick Negative (Negative); Occult Blood-Urine 10 /ul (Negative); Protein-Dipstick 15 mg/dl (Negative); Urine Bilirubin Dipstick Negative (Negative); Urine Clarity Clear (Clear); Urine Urobilinogen Normal (Normal)
[2024-05-31 07:06] LABS: Squamous Epithelial Cells - UA 0-5 SEEN /hpf (5-10); White Blood Cells 0-5 SEEN /hpf (0-5)
[2024-05-31 07:07] LABS: Hyaline Cast 0-5 SEEN /lpf (0-5)
[2024-05-31 07:15] LABS: Anion Gap 5 (5-15); BUN 30 mg/dL (7-18); BUN/Creat Ratio 28.6 RATIO (10-20); Calcium,Total 9.7 mg/dL (8.5-10.1); Chloride 109 mmol/L (98-107); Creatinine, Serum 1.05 mg/dL (0.55-1.02); EST Glomerular Filtration Rate 54 mL/min (>60); Est Glom Filt Rate - Afr Amer 65 mL/min (>60); Estimated Creatinine Clearance 30.79 ml/min; Glucose 107 mg/dL (74-106); Potassium 3.1 mmol/L (3.5-5.1); Sodium Level 144 mmol/L (136-145); Troponin-I HS 4 pg/mL (3.0-54.0)
[2024-05-31 07:42] VITALS: BP 176/101; PULSE 89; RESP 18; O2SAT 98
[2024-05-31 09:00] VITALS: BP 167/86; PULSE 78; RESP 16; O2SAT 98
== END 2024-05-31 09:12 | disposition home or self-care (01) ==
PROVIDERS: Emergency Provider Emergency Medicine; PCP Family Medicine Geriatric Medicine; Visit Provider Emergency Medicine
DX: R53.1 Weakness (principal); R13.10 Dysphagia, unspecified; R25.1 Tremor, unspecified; R05.1 Acute cough; I10 Essential (primary) hypertension; Z79.899 Other long term (current) drug therapy
CPT/HCPCS: 70450; 80048; 81001; 84484; 85025; 87631; 93005; 99285; A4216

== ENCOUNTER 2024-06-01 04:44 | Emergency (ER) | payer MEDICARE, SELFPAY ==
[2024-06-01 04:44] VITALS: BP 173/123; PULSE 107; RESP 20; TEMP 36.4; O2SAT 96; BMI 18.4
[2024-06-01] MEDS: 0.9% Normal Saline (500mL Bag) 500 ML 999 ML IV (05:18)
[2024-06-01] MEDS: LORazepam 2 MG/ML Syringe 1 MG IV (05:18)
--- NOTE | 2024-06-01 06:11 | EDS_ITS ---
HPI History of Present Illness Chief Complaint: Anxiety Informant: patient and spouse/S.O. Narrative Narrative: Patient is a 78-year-old female with past medical history of hypertension hyperlipidemia anemia and dysphagia. She states that she has been having sens ation of something in her throat and has been follow-up as an outpatient where she has had a CT scan of her neck as well as a scope which does not show any type of mass or stricture or obstruction. She was seen in the ER roughly 24 hours ago and had a complete workup secondary to the sensation as well and labs revealed no clinically significant findings. Patient states she was sleeping and then awoke with sensation of something stuck in her throat from drainage and secondary to this return to the ER for repeat evaluation [facility] Medical History Wears partial dentures Post-menopausal Non-smoker Hyperlipidemia Senile osteoporosis IBS (irritable bowel syndrome) Diaphragmatic hernia Benign neoplasm of stomach Hypertension Home Medications ?Medication ?Instructions ?Recorded ?Last Taken ?Type valsartan 160 1 tab PO DAILY 11/13/18 Unknown History mg-hydrochlorothiazide 12.5 mg tablet multivitamin 1 tab PO DAILY 11/23/21 Unknown History potassium chloride 10 mEq 10 meq PO DAILY 09/07/22 Unknown History capsule,extended release lorazepam 2 mg/mL injection 1 mg (0.5 mL) sublingual TID PRN 06/01/24 Unknown Rx solution (Ativan) anxiety 5 days #7.5 mL Allergy/AdvReac Type Severity Reaction Status Date / Time No Known Allergies Allergy Verified 05/31/24 05:42 Family History Mother Cancer lung-smoker Father Colon cancer Surgical History History of Iron fundoplication Hx of dilation and curettage Hx of colonoscopy History of esophagogastroduodenoscopy (EGD) S/P cholecystectomy History of esophagogastroduodenoscopy (EGD) History of appendectomy Social History Smoking Status: Never smoker alcohol intake: never substance use type: does not use caffeine: No what type of physical activity do you participate in: walking frequency: 3-4 times per week seatbelt use: always do you feel safe at home: Yes additional social history: Patient is retired ROS ROS ED Constitutional Constitutional ED: Denies chills or fever(s) ENT ENT ED: Reports rhinorrhea and other Details: Positive dysphagia ; Denies sore throat Cardiovascular Cardiovascular: Denies chest pain Respiratory/Chest Respiratory/Chest: Denies cough or dyspnea Gastrointestinal Gastrointestinal: Denies abdominal pain, diarrhea, nausea or vomiting Genitourinary Genitourinary ED: Denies dysuria Musculoskeletal Musculoskeletal: Denies myalgias or neck pain Integumentary Denies rash Neurologic Neurologic: Denies headache(s) Psychiatric Psychiatric: Reports anxiety Hematologic/Lymphatic Hematologic/Lymphatic: Denies easy bleeding or easy bruising Allergic/Immunologic Allergic/Immunologic ED: Denies mouth swelling or tongue swelling EXAM Physical Exam Const Vital Signs: 06/01/24 04:44 Temperature 97.6 F L Temperature Source Oral Pulse Rate 107 H Respiratory Rate 20 H Blood Pressure 173/123 H Blood Pressure Mean 139 Pulse Ox 96 Oxygen Delivery Method Room Air Positive well nourished and well developed General Appearance ED: well developed; Negative for pallor HEENT HEENT Narrative: No tongue or lip swelling no airway edema or compromise No secondary findings in the posterior pharynx to suggest infection Eyes PERRL and EOMs intact bilaterally General Eye ED: Negative for scleral icterus Neck supple Neck Narrative: No crepitance palpated No pain with external manipulation of the thyroid cartilage No masses noted No brawny edema in the submental space to suggest Allan's angina Resp normal respiratory effort and clear to auscultation bilaterally Cardio regular rate and regular rhythm GI normal to inspection, nondistended, normoactive bowel sounds, non-tender, non- distended and no masses Auscultation: normoactive bowel sounds Palpation: soft Extremity normal to inspection Neuro oriented x3, CN's II-XII intact bilaterally and no sensory deficits noted Sensorium / Orientation: alert Motor Exam: strength 5/5 throughout Psych Mood & Affect: anxious Skin no rashes or lesions noted General Skin Exam: Negative for jaundice or pallor MDM MDM MDM Narrative Medical decision making narrative: Patient arrived to the ER hypertensive but otherwise with stable vitals. She had just undergone a workup in the ER 24 hours ago. I discussed with patient performing a CT scan of her neck to ensure there is no sign of free air or obstruction or infection such as epiglottitis. She states she is already had that scan performed as well as a EGD and there was nothing found. Her confirms this report. Therefore at this time her symptoms seem to be related to globus hystericus and as her recent workup did not show signs of acute kidney injury or electrolyte abnormality and she reports she is recently had CT scan of her neck as well as a scope not showing any type of stricture formation Schatzki's rings epiglottitis or Kiah-Ayala tear I do not feel there is need for repeat testing/imaging. As her history and exam indicates this is most likely anxiety in nature she was given IV Ativan. On reevaluation she has had complete resolution of symptoms. Therefore she prescribed this for home but is otherwise safe for discharge History & Record Review Discussion w/independent historian: Patient and Significant other Discharge Plan Triage Chief Complaint: Anxiety ED Provider: David Gonzalez Dx/Rx/DC Orders Clinical Impression: Anxiety, Dysphagia, Hypertension, Hyperlipidemia Instructions: Dysphagia: Exercises, ED Anxiety Reaction Prescriptions: New lorazepam [Ativan] 2 mg/mL solution 1 mg sublingual TID PRN (Reason: anxiety) 5 Days Qty: 7.5 0RF No Action valsartan-hydrochlorothiazide 160-12.5 mg tablet 1 tab PO DAILY multivitamin Tablet 1 tab PO DAILY potassium chloride 10 mEq capsule, extended release 10 meq PO DAILY Primary Care Provider: Calos Morrison Chi Referrals: Calos Morrison Chi, MD [Primary Care Provider] - Activity Restrictions/Additional Instructions: If your symptoms return try taking the Ativan as directed from the ER. Follow- up with your family doctor for repeat evaluation and return to the ER should you have any further concerns Print Language: Khmer Disposition Disposition: Home, Self Care
[2024-06-01 06:22] VITALS: BP 149/80; PULSE 71; RESP 16; TEMP 36.6; O2SAT 98
== END 2024-06-01 06:23 | disposition home or self-care (01) ==
PROVIDERS: Emergency Provider Emergency Medicine; PCP Family Medicine Geriatric Medicine; Visit Provider Emergency Medicine
DX: F41.9 Anxiety disorder, unspecified (principal); R13.10 Dysphagia, unspecified; I10 Essential (primary) hypertension; E78.5 Hyperlipidemia, unspecified; Z79.899 Other long term (current) drug therapy
CPT/HCPCS: 96361; 96374; 99282; A4216

== ENCOUNTER → 2024-06-07 | Outpatient (CLI) | payer MEDICARE, SELFPAY ==
--- NOTE | 2024-06-07 09:01 | MRI_ITS ---
STUDY: MRI BRAIN WITHOUT CONTRAST REASON FOR EXAM: Female, 78 years old. ISCHEMIC STROKE TECHNIQUE: Standardized multiplanar fat and water weighted pulse sequences were obtained. COMPARISON: CT 05/31/2024 FINDINGS: There is mild cerebral atrophy with widening of the extra-axial spaces and ventricular dilatation. There are a limited number of small white matter hyperintensities, distributed throughout the deep white matter tracts of the cerebral hemispheres, consistent with mild chronic white matter ischemic changes. There is no evidence for recent intracranial ischemia or other cause of cytotoxic edema on diffusion weighted imaging (DWI). Normal T2* images of the brain without demonstrated susceptibility artifact. There is no demonstrated hemosiderin stain. Normal bilateral basal ganglia. Normal thalami. There is no extra-axial fluid accumulation. Normal flow voids within the major intracranial circulation suggesting patency by spin echo criteria. Normal sella turcica, pituitary gland, infundibular stalk, optic chiasm and hypothalamus. Normal tectal plate and pineal gland. Normal midbrain, janet and medulla. Normal cerebellum. Normal basal cisterns. Normal bilateral temporal bones. Normal bilateral internal auditory canals. There are bilateral ocular lens implants with otherwise normal intraorbital contents. Normal visualized paranasal sinuses. Normal calvarium and skull base. Normal visualized soft tissue structures. Normal visualized upper cervical spine. MRI/Brain without Contrast IMPRESSION: Involutional changes of the brain, as described above. No acute infarct. Electronically Signed: Jonny Ha MD at 13:57 EST ,
--- NOTE | 2024-06-17 11:10 | HP.SP.DC ---
ST Discharge Summary Discharged: Discharge: Pt was seen for initial speech& language evaluation at [facility] on 04/15/24 s.p. complaints of hoarseness and changes in vocal quality without a known cause. Pt attended 1 session to target dysarthria and ST recommended a neurological consult and a follow up with her PCP. Pt is being discharged from speech therapy caseload on this date, 06/17/24, secondary to canceling future speech therapy appointments to undergo medical testing. Thank you for allowing me to participate the care of your Pt. Will reevaluate at Pt?s request following script from physician.
== END | disposition home or self-care (01) ==
PROVIDERS: PCP Family Medicine Geriatric Medicine; Referring Provider Family Medicine Geriatric Medicine; Visit Provider Family Medicine Geriatric Medicine
DX: I63.9 Cerebral infarction, unspecified (principal)
CPT/HCPCS: 70551

== ENCOUNTER → 2024-07-08 | Outpatient (CLI) | payer MEDICARE, SELFPAY | END | disposition home or self-care (01) | PROVIDERS: PCP Family Medicine Geriatric Medicine; Referring Provider Psychiatry & Neurology Neurology; Visit Provider Psychiatry & Neurology Neurology | DX: R13.12 Dysphagia, oropharyngeal phase (principal) | CPT/HCPCS: 36415 ==

== ENCOUNTER → 2024-07-30 | Outpatient (CLI) | payer MEDICARE, SELFPAY ==
--- NOTE | 2024-07-30 13:52 | SP.MBSS_ITS ---
Modified Barium Swallow Patient Information Study Date: 07/30/24 Study Time: 13:00 Direct Billable Minutes: 101 Total Minutes procedure & reportin Diagnosis: Dysphagia R13.10 Referring Physician: Calos Morrison Chi Reason for Referral: Assess swallow function, assess risk for aspiration, and determine recommendations for least restrictive diet textures and compensatory strategies to improve safety of swallow. Medical History: Patient reports throat clearing and coughing w/ food and drinks. Significant weight loss since February, currently weighing only 89 lbs. She presents today w/ garbled speech and hoarse vocal quality, which onset in February 2024 at the same time her swallowing difficulty onset. Pt has undergone neurological work up w/ Dr. Lim (2 upcoming visits per pt) w/ no abnormal findings yet, including negative Brain MRI per pt report. Pt has also seen healthcare network pricing consultant, Dr. Joe, with EGD negative for esophageal abnormalities per pt report. Lastly, pt was seen by ENT, Dr. Alexis, with no abnormal findings of throat and vocal folds per pt report. BSE at 07/16/24 recommended for regular textures, moistened / thin liquids, 6 small meals daily due to weight loss, liquids by straw, reduce distractions, crush medications (See BSE 07/16/24 for full details). She was recommended for this MBSS to further assess aspiration risk. Of note, pt is planned for esophagram 08/04/24. PMH: osteoporosis, HTN, HLD. Current Diet Ordered: Regular (soft) / Thin Dentition: Natural Teeth Mental Status: WNL Respiratory Status: Oxygenating on Room Air Penetration-Aspiration Scale Penetration-Aspiration Scale: OBJECTIVE ASSESSMENT OF SWALLOW FUNCTION (QUANTITATIVE ? PER TRIAL): PENETRATION / ASPIRATION SCALE (NOLAN): 1 = does not enter airway 2 = enters airway/above vocal folds/ejected 3 = enters airway/above vocal folds/not ejected 4 = enters airway/contacts vocal folds/ejected 5 = enters airway/contacts vocal folds/not ejected 6 = enters airway/below vocal folds/ejected 7 = enters airway/below vocal folds/not ejected despite effort 8 = enters airway/below vocal folds/no effort VIDEOFLOROSCOPIC SCALE SCORE (NOLAN): Grade I = aspiration of material that has penetrated into the laryngeal vestibule, intact cough reflex Grade II = aspiration < 10 % of the bolus, intact cough reflex Grade III = aspiration of < 10 % of the bolus, reduced cough reflex or aspiration of > 10 % of the bolus, intact cough reflex Grade IV = aspiration of > 10 % of the bolus, reduced cough reflex Penetration-Aspiration Scale Score Thin Liquid via teaspoon: Result: 2= enter airway/above vocal folds/ejected Thin Liquid via teaspoon Trial 2: Result: 2= enter airway/above vocal folds/ejected Thin Liquid via sequential sips:straw: Result: 2= enter airway/above vocal folds/ejected Comment: Esophageal screen - Retention in the lower esophagus. [place] Thick Liquid via small single sip: cup: Result: 1= does not enter airway Comment: Trace retention in UES Pudding via teaspoon: Result: 1= does not enter airway Thin Liquid via single sip: straw: Result: 2= enter airway/above vocal folds/ejected [place] coated in barium pudding: Result: 1= does not enter airway Oral Phase Labial Seal: Interlabial escape, no progression to anterior lip Tongue Control During Bolus Hold: Posterior escape of less than half of bolus Bolus Preparation/Mastication: Slow prolonged chewing/mashing with complete recollection Bolus Transport/Lingual Motion: Delayed initiation of tongue motion Oral Residue: Residue collection on oral structures Pharyngeal Phase Initiation of Pharyngeal Swallow: Bolus head in pyriforms Soft Palate Elevation: Trace column of contrast/air between soft palate and pharyngeal wall Laryngeal Elevation: Comp. Superior move thyroid cart w/comp. apprx arytenoid cart-epig pet Anterior Hyoid Excursion: Partial anterior movement Epiglottic Movement: Complete inversion Laryngeal Vestibule Closure at Height of Swallow: Incomplete; narrow column of air/contrast in laryngeal vestibule (trace laryngeal penetration, fully ejected) Pharyngeal Stripping Wave: Present - diminished (poor) Pharyngoesophageal Segment Opening: Parital distension and partial duration; parital obstruction of flow Tongue Base Retraction: Wide column of contrast between tongue base & post. pharyngeal wall Pharyngeal Residue: Collection of residue within or on pharyngeal structures Esophageal Phase Esophageal Clearance: Esophageal retention Diagnosis/Impression Diagnosis: Moderate oropharyngeal dysphagia R13.12 Impression: Pt presents w/ lingual fasiculations. The oral phase is primarily marked by... -Posterior loss of <1/2 of some thin liquid trials to the pyriforms prior to swallow onset. -Delayed tongue motion for A-P transport. -Piecemeal deglutition w/ pudding. The pharyngeal phase is primarily marked by... -Decreased pharyngeal motility w/ decreased TB retraction, pharyngeal motility, and UES opening/duration. ~1/3 of pudding bolus remained in the pharynx after the first swallow, which somewhat cleared w/ multiple swallows and a liquid wash. Of note, pt naturally tucks her chin when swallowing purees/solids. -Good airway closure during the swallow w/ only trace laryngeal penetration and complete ejection; however, due to weak sounding cough and moderate pharyngeal residues, the patient is at risk for post prandial aspiration. Would not recommend esophagram due to concerns for an aspiration event w/ sequential thin (pt took just two small sips sequentially during this study, but would need to drink much more for esophagram). The esophageal phase is primarily marked by... -Slowed emptying and retention of pudding in the lower esophagus, which somewhat cleared w/ liquid wash. -Retention of peach coated in barium in the upper esophagus. -Retention of barium in lower esophagus appeared to move in a pulse-like manner - [employer]ER placed calls to review this finding w/ radiologist, Dr. Yates, and healthcare network pricing consultant, Dr. Dickinson. [employer] OFF[employer]ER is awaiting call back. Recommendations Diet: Soft and Bite Sized Textures (IDDSI- Level 6) and Thin Liquids Comment: Frequent meals throughout the day Compensatory Strategies: Small Bites, Small Sips (By straw per pt preference), Slow Rate, Multiple Swallows, Alternate bites/solids and sips/liquids (1:1 ratio), Sitting upright, Remain sitting upright for 30 minutes after PO intake and Minimize/decrease distractions Recommend Repeat Modified Barium Swallow: TBD Need for Skilled Speech Therapy Services: Yes Comment: -Training in diet texture testing/preparation for IDDSI Level 6. -Training in strategies to decrease risk for aspiration. -Ongoing assessment of diet tolerance. -EMST training. Would hold oropharyngeal exercises until neurological work up has been completed. Recommended Referrals: GI Consult ([employer]ER recommended canceling esophagram due to concerns for aspiration) Education Completed: 1. Described result of evaluation., 2. Pt understands evaluation & agrees with goals and treatment plan., 4. Family/caregivers understand evaluation & agree w/ goals & tx plan. and 7. Pt requires further education on strategies & risks. Comment: NEURO Consult - [employer]ER strongly encourages follow up w/ neurologist for additional visits due to presence of lingual fasiculations, current moderate oropharyngeal dysphagia, and impaired speech/voice production. Status Active ST Patient: Active Contact Information [facility] Speech Therapy:: Mayela De La Garza M.A. [facility]-[employer] OFF[employer]ER? Speech-Language Pathologist?? [facility] [address] [place] [address]? [email or web address]?? [phone]
== END | disposition home or self-care (01) ==
LOC: RAD 12:54
PROVIDERS: PCP Family Medicine Geriatric Medicine; Referring Provider Family Medicine Geriatric Medicine; Visit Provider Family Medicine Geriatric Medicine
DX: R13.10 Dysphagia, unspecified (principal)
CPT/HCPCS: 74230; 92611

== ENCOUNTER 2024-08-05 13:00 | Outpatient (RCR) | payer MEDICARE, SELFPAY ==
--- NOTE | 2024-07-16 13:12 | HP.SP.EV_ITS ---
Visit History Visit Info Date of Eval: 07/15/24 Visit: 1 Manager Integration: PRADEEP History Attending Doctor: Referring Doctor: Reason for Referral: DYSPHAGIA RX HERE Medical Diagnosis: Dysphagia Date of Onset of Diagnosis: February 2024 Previous speech therapy: Yes Results: She was evaluated on 04/15/24 for voice deficits with therapy recommended once a week. She was treated for one session and then placed on hold until further testing. Other Relevant Medical History/Diagnoses/Surgery: Patient reported she has had MRI and CT (both normal) and has also seen ENT, Neurology, GI. She reported that so far nothing has been determined as to why she is having significant symptoms. Per her and 's report, physicians have ruled out CVA and ALS. She reported that symptoms started after getting RSV vaccination in January or early February 2024 then got worse for approximately a month. Now her symptoms have stabilized per her report. Patient's weight went from 120 to currently 89 lbs. The patient had two ER visits in May ( 05/31 and 06/01). On 05/31/24 - She went for generalized weakness, shaking, difficulty swallowing, and hoarseness that has been getting progressively worse. She was discharged from ER to home with no CVA. She returned on 06/01/25 with globus sensation in her throat. She was discharged home after symptoms resolved after receiving Ativan. During the evaluation, her stated multiple times that he questions whether her symptoms are due to vitamin deficiencies but no physician has ordered bloodwork to determine this. Medications related to this diagnosis: Patient did not bring list of medications but started she is on blood pressure medication and anxiety medication. She will start an She will bring list at next visit. Smoking Status: Never smoker Diagnosis Diagnosis: Dysphagia Pain Is pain an issue with your current prescribed condition?: No Personal Preferred language: Welsh Patient Allergies Allergies Allergies: Allergies No Known Allergies Allergy (Verified 05/31/24 05:42) Subjective Dysphagia Symptoms Reported Symptoms/Problems with: Choking, Difficulty Swallowing Liquids and Food gets stuck Current Diet Solids Current Diet: Mechanical Soft Current Diet Liquids Current Liquids: Thin Comments Report: -: Patient reports that she is able to eat yogurt type foods as well as spaghetti chopped up, baked potatoes that are smashed, cooked carrots that are smashed as well as soups but foods need to be mashed and very soft. She drinks liquids only via straw. Objective Dysphagia Administered by Administered by: Self Thin Liquids Administred via: Straw Bolus clearance: fully cleared Gagging: No Cough: delayed, throat clear and non-productive Pharyngeal phase: suspect pharyngeal deficits Patient Report: Patient reported coughing one to two times per day on liquid. Comments: Patient had delayed throat clear on most sips of thin liquids via straw. Patient only took less than 10 sips. Pureed Administered via: Spoon Oral Preparation: WNL Bolus clearance: fully cleared Cough: delayed and throat clear Pharyngeal phase: suspect pharyngeal deficits Patient Report: Patient reported that she felt it stuck. She took a natural second swallow that she reported did not clear the feeling. A liquid wash helped clear the feeling of food stuck. Comments: Patient took only 2-3 bites of puree (applesauce). Moist & Minced Comments: Patient declined to trial mixed fruit cup. Regular Oral Preparation: WNL Cough: none observed/unable to assess Pharyngeal phase: suspect pharyngeal deficits Comments: Patient took small bites (the size of thumb nail). The first bite had reports of feeling food sticking. Second swallow did not clear the feeling of residue. She was cued for a liquid swallow and stated that it helped. She points to the base of her throat when asked location of feeling of food. She needed maximal encouragement to do a second very small bite of susanna cracker with cue to add liquid ( small sip of water) after chewing but before swallowing. She reported that there was no feeling of residue. Swallowing Impairment Contributing Factors to Swallowing Impairment: Reduced Oral Strength/Coordination/Sensation and Impaired Oral-Pharyngeal Transport Impact Impact on Safety & Functioning: Risk for Inadequate Nutrition/Hydration Comments: Patient is highly limiting her oral intake in fear of choking. She was recommended to ask physician if ensure type drinks would be helpful for her. MBSS is schedule on 07/30/24. Recommendations Modified Barium Swallow/Cookie Swallow Recommended: Yes Swallowing Treatment: Yes Diet Texture Recommendations Solids: Regular (Level 7) Liquids: Thin (Level 0) Safety Saftey Precautions/Swallowing Recommendations (Check all that Apply): Reduce Distractions, Small Sips & Bites when Eating, Alternate Liquids & Solids and Other (Specify Below) Other: Add liquid to all foods that are dry. Continue to crush meds. Results Swallowing Within Normal Limits: No Swallowing Diagnosis: Dysphagia Unspecified (R13.10) Objective Oral Motor Oral Status Additional: Natural teeth with partial lower. Respiratory Status Respiratory Status: Room Air Swallowing Performance Scale Swallowing Performance Scale Swallowing Performance Scale Result: 4 Mild to Moderate Reference: Neuro-QoL instrument Radiation Oncology Patient Plan Plan Plan: Speech therapy is recommended as patient is exhibited dysphagia. Recommendations Treatment Warranted: Yes Treatment Warranted: Dysphagia and Voice Progress Prognosis: Good Frequency Frequency: 2x /Week Duration: 6 Weeks Patient/Family Goal Patient/Family Goal: Patient would like to be able to eat normally again. Goals that are Established Determination:: Goals will be added/modified as deemed necessary and appropriate. Therapy will be discontinued when results of re-evaluation indicate therapy is no longer needed or lack of progress has been documented. Goal #1-5 Goal #1: Patient will tolerate the least restrictive means of nutrition to facilitate adequate hydration/nutrition with optimum safety and efficiency of swallowing function during P.O. intake without overt signs and symptoms of aspiration. Goal #2: Patient will demonstrate and utilize recommended velopharyngeal and oropharyngeal strengthening exercises to facilitate improved velopharyngeal and oropharyngeal strength and coordination with minimal cueing and prompting provide by the clinician, across 3 to 3 sessions. Goal #3: Voice/Dysarthria evaluation. Education Patient has Indicated that the Following Identified Educational Needs: None The Patient has indicated that they have no educational or learning abilities that may effect their care.: Yes Patient Instruction Patient Education: Diagnosis, Treatment Plan and Diet Level Person Taught: Patient and Significant Other
--- NOTE | 2024-08-05 13:07 | HP.PTEVAL ---
Patient's Visit Information Visit Information Visit Information: WEN GUSTAFSON is a 79 year old F referred to Physical Therapy by Dr. Calos Morrison MD with a diagnosis of WEAKNESS. Date of Evaluation: 08/05/24 Physical Therapist: Brynn Leonard PT, Cert MDT Visit Plan Frequency: 2x /Week Duration: 4-6 Weeks Plan: CORE AND LE GENERAL STRENGTHENING WITH NEUTRAL SPINE. GAIT AND BALANCE TRAINING. GENTLE HIP FLEXOR, HS AND CALF STRETCHING INSTRUCTION. HEP INSTRUCTION Subjective Subjective: THIS PATIENT PRESENTS TO PHYSICAL THERAPY WITH HER . SHE STATES THAT SHE WAS EXERCISING AT [place] [facility] A FEW TIMES A WEEK ON THE WEIGHT MACHINES UNTIL FEB 2025 WHEN SHE EXPERIENCED SUDDEN ONSET OF WEAKNESS FOR NO APPARENT REASON OTHER THAN RECEIVING VACCINES AT [place] (PNEUMONIA AND RSV). SHE REPORTS SHE HAS BEEN TO MULTIPLE SPECIALISTS AND HAD MANY TESTS ANY EVERYTHING COMES BACK NORMAL. SHE HAD A SPECIAL THERAPY CONSULT RECENTLY AND HAS AN OT CONSULT PENDING AFTER PT TODAY. Present symptoms: GENERAL WEAKNESS ALL OVER. Pain Scale: PATIENT DENIES PAIN. Is it getting better, worse or staying the same: STAYING THE SAME Symptoms at onset: WEIGHT LOSE Gait: PATIENT REPORTS SHE ISN'T USING ANY AD'S, HASN'T FALLEN BUT HANGS ONTO HER IN PUBLIC JUST TO BE SAFE. WALKS AROUND THE HOUSE WITHOUT ANYTHING AND LETS THE DOG OUT. Unexplained weight loss: YES - 35 LBS SINCE FEB 2024. Imaging: BRAIN AND SPINE IMAGES HAVE BEEN NORMAL. ALSO HIPS AND LEGS FAR PATIENT IS AWARE HAVE BEEN NORMAL. PMH/Recent major surgery: HTN, H/O R SHLD DISLOCATION. OSTEOPOROSIS. Objective Objective: Sitting/Standing Posture: INCREASED KYPHOSIS. DECREASED LORDOSIS. SLOUCHED IN SITTING. ABLE TO PARTIALLY CORRECT. DOES NOT MAINTAIN. Other Observations: PATIENT FOLLOWS COMMANDS WELL. SHE IS PLEASANT AND COOPERATIVE TO WORK WITH. SHE AMBULATES INDEP'LY INTO PT WITHOUT ANY AD'S OR LOB WITH DECREASED CADANCE, DECREASED JORDI STRIDE LENGTH BUT NO LOB. Sensory deficit: JORDI LE LIGHT TOUCH SENSATION GROSSLY INTACT AND SYMMETRICAL ROM deficit: MILD JORDI LE HIP FLEXOR, HS AND CALF TIGHTNESS. Motor deficit: JORDI LE'S GROSSLY 4-/5 Lumbar mvmt loss: flex - MIN ext - MEHNAZ R SG - MOD TO MEHNAZ L SG - MOD TO MEHNAZ PATIENT DENIES PAIN WITH LUMBAR ROM TESTING ALL PLANES Core strength: POOR. Palpation: NO ACUTE BACK OR HIP OR LEG TENDERNESS. MUSCLE ATROPHY THROUGHOUT. TUG TIME = 15.85 - SUPERVISION AND NO AD 30 SEC STS = 5 - HANDS ON KNEES AND SUPERVISION Balance/Special Test Scores Lower Extremity Functional Score: 33 Goals Goal 1:: PATIENT WILL COMPLETE 10 STANDS IN 30 SECS WITH HANDS ACROSS CHEST TO DEMONSTRATE IMPROVED FUNCTIONAL LE STRENGTH Goal Time Frame: 6-8 Weeks Goal 2:: PATIENT WILL COMPLETE TUG IN < 10 SECS INDEP'LY WITHOUT AD TO DEMONSTRATE IMPROVED GAIT STABILITY Goal Time Frame: 4-6 Weeks Goal 3:: PATIENT WILL SCORE AT LEAST 10 POINTS BETTER ON LEFS QUESTIONNAIRE. Goal Time Frame: 4-6 Weeks Goal 4:: PATIENT WILL BE INDEP WITH HOME AND/OR GYM EX PROGRAM FOR CONTINUED IMPROVEMENT ONCE FORMAL PHYSICAL THERPAY CONCLUDES. Goal Time Frame: 6-8 Weeks Rehabilitation Potential Physical Therapy Diagnosis: CORE AND LE WEAKNESS AND STIFFNESS WITH GAIT DIFFICULTY. Rehabilitation Potential: Good Anticipated Interventions Patient/Client Instruction: Educate patient on: Condition, Plan of Care and Risk Factors For the Purpose of:: To improve self management Therapeutic Exercise to Include: Strength training, Endurance training, Balance training, Flexibilty training, Gait and locomotor training and Neuromotor development For the Purpose of:: To improve muscle performance and motor function, To increase tolerance to activity/condition/position, To improve performance and independence with ADL's, To improve ability of physical actions for home/community/work/leisure, To improve gait and locomotor functions, To increase flexibility/ROM, To improve endurance, To improve safety with gait and To improve self management Text: Thank you for the opportunity to evaluate your patient. For Medicare and Medicare HMO plans, please review the plan of care and approve it. It will need to be FAXED BACK to us at [phone] for Medicare purposes. For Medicare only, by signing this I certify the plan of care. Please let me know if there are questions or concerns regarding this plan of care. Physician Signature: Date:
--- NOTE | 2024-08-05 13:58 | HP.OTEVAL ---
Patient's Visit Information Visit Information Visit Information: WEN GUSTAFSON is a 79 year old F, referred to Occupational Therapy by Dr. Calos Morrison MD, with a diagnosis of weakness R 53.1. Date of Evaluation: 08/05/24 Occupational Therapist: January Roberts Subjective Subjective: This 79 year old female arrives with dx of weakness. Weakness started in February pt states she has had testing complete all coming back fine unable to ID why she has difficulty with speech as well as swallowing at this time. pt states weakness has been gradual decline however states she feels things are starting to get better. pt has never had OT prior to this. Pt states she is doing exercises at home. Pt is I in ADL tasks as well as IADL tasks however becomes heavily fatigued and needs rest breaks. pt is R hand dominant and very active at baseline. Objective Objective/Observation: arrives walks back to appointment no AD frail ROM Shoulder: wfl Elbow: wfl Forearm: wfl Wrist: wfl CMC: wfl MP: wfl IP: wfl Radial Abduction: wfl Palmar Abduction: wfl Opposition: wfl MP: wfl PIP: wfl DIP: wfl Strength Shoulder: L 4.5# R 4.8# Elbow: bicep L 7.3# R 6.3# tricep L 5.9# R 6.1# Associate Juvenile Court Judge: R 21# L 15# Lateral Pinch: R 0# L 0# Tripod Pinch: R 0# L 0# Strength Comments: L ER 3.6# R ER 4.8# pt is R hand dominant Edema Other: none noted Sensation Sensation Comments: none noted Nine Hole Peg Right: 24 sec Left: 29 sec In-Hand Manipulation Finger to Palm Translation: Normal - Right and Mild - Left Palm to Finger Translation: Normal - Right and Mild - Left Quick DASH-Disab of Arm,Shoulder& Hand Quick DASH Score: 61.3625 Goals Goal:: pt will demonstrate improved shoulder flexion strength BUE by 5# or more in order to perform day to day tasks pt will improve B tricep strength 5# or more in order to perform day to day tasks pt will improve B bicep strength by 5# or more in order to perform day to day tasks pt will improve B hand meat salter strength by 5# or more in order to perform day to day tasks pt will improve pinch strength B hands by 2# or more in order to perform day to day tasks Goal:: pt will demonstrate 100% carryover in proper joint protection and EC techniques by discharge Goal:: pt will improve quick dash score by 10 points or more in order to perform day to day tasks Goal:: pt will improve fine motor as evident by 9 hole peg assessment B hands by 3 seconds or more in order to maximize I in self care tasks tasks Pt will demonstrate 100% accuracy in gym equipment program by discharge Rehabilitation General Assessment: This 79 year old female arrives with dx of weakness. pt demonstrates impairments in UB strength as well as overall aerobic capacity fine motor skills and in hand manipulation impacting her day to day function indicating need for OT services 1x a week for 4 weeks. Rehabilitation Potential: Good Anticipated Interventions Anticipated Interventions: Strengthening, Joint Protection/Energy Conservation, Fine Motor Coord/Ramiro, Education re Diagnosis and Home Program Visit Plan Frequency: 1x/Week Duration: 4 Weeks General Plan: strengthening gym equipment log fine motor TEXT: Thank you for the opportunity to evaluate your patient. For Medicare and Medicare HMO plans, please review the plan of care and approve it. It will need to be FAXED BACK to us at [phone] for Medicare purposes. Please let me know if there are questions or concerns regarding this plan of care. Physician Signature: Date:
--- NOTE | 2024-10-21 11:23 | HP.SP.DC ---
ST Discharge Summary Discharged: Discharge: Nia Cary is discharged from [facility] as of October 21, 2024. She was evaluated for dysphagia on 07/15/24 with therapy recommended twice weekly. Goals focused on demonstrate and utilize recommended velopharyngeal and oropharyngeal strengthening exercises and tolerance of a diet without overt s/s of aspiration and penetration. A modified barium swallow study was recommended which was completed on 07/30/24. Please see report for full details. Diet recommendation: Soft and Bite Sized Textures (IDDSI- Level 6) and Thin Liquids. She was also strongly encourages follow up w/ neurologist for additional visits due to presence of lingual fasciculations, current moderate oropharyngeal dysphagia, and impaired speech/voice production. A voice evaluation was not completed as the patient declined it due to insurance not covering payment for it. She was treated for 4 visits then placed on hold until after her neurology appointment on 09/08/24. She no showed her speech therapy appointment after that and no further contact was made by patient. As no further visit was scheduled, the patient is discharged. Thank you for allowing me to participate in the care of this patient.
== END 2024-08-05 19:00 | disposition home or self-care (01) ==
LOC: OT 13:00
PROVIDERS: PCP Family Medicine Geriatric Medicine; Referring Provider Family Medicine Geriatric Medicine; Visit Provider Family Medicine Geriatric Medicine
DX: R13.10 Dysphagia, unspecified (principal); R53.1 Weakness; R49.9 Unspecified voice and resonance disorder
CPT/HCPCS: 92507; 92526; 92610; 97162; 97166

== ENCOUNTER → 2024-08-08 | Outpatient (CLI) | payer MEDICARE, SELFPAY ==
[2024-08-08 11:32] LABS: Absolute Lymphocyte Count 1.08 X10^3/uL (0.83-4.51); Basophil# 0.06 X10^3/uL; Basophil% 1.1 % (0-1); Eosinophil# 0.05 X10^3/uL; Eosinophils% 0.9 % (0-5); Hematocrit 41.8 % (37-47); Hemoglobin 13.4 g/dL (12.0-15.0); Lymphocyte # 1.08 X10^3/ul (0.83-4.51); Lymphocyte % 19.5 % (19-41); Mean Corp Hgb Conc 32.1 g/dL (32-36); Mean Corpuscular Hgb 28.6 pg (27.0-32.0); Mean Corpuscular Volume 89.3 fL (81-99); Mean Platelet Vol. 11.3 fl (6.2-12.0); Monocyte# 0.36 X10^3/uL; Monocyte% 6.5 % (0-10); Neutrophil # 3.96 X10^3/uL (2.7-7.7); Neutrophil % 71.5 % (47-70); Platelet Count 243 K/mm3 (150-450); RBC Distribution Width CV 15.1 % (11.6-14.6); RBC Distribution Width SD 49.7 fl (35.1-43.9); Red Blood Count 4.68 M/mm3 (4.2-5.4); White Blood Count 5.5 K/mm3 (4.4-11.0)
[2024-08-08 11:58] LABS: Vitamin B12 209 pg/mL (211-911); Vitamin D,25 Hydroxy 56.7 ng/mL
[2024-08-08 12:08] LABS: ALB/GLOB Ratio 0.9 RATIO (0.9-2.4); AST(SGOT) 24 U/L (15-37); Alanine Aminotransfer ALT/SGPT 19 U/L (13-56); Albumin, Serum 3.5 g/dL (3.2-5.0); Alkaline Phosphatase 68 U/L (45-117); Anion Gap 7 (5-15); BUN 12 mg/dL (7-18); BUN/Creat Ratio 17.3 RATIO (10-20); Calcium,Total 9.5 mg/dL (8.5-10.1); Chloride 107 mmol/L (98-107); Creatinine, Serum 0.69 mg/dL (0.55-1.02); EST Glomerular Filtration Rate 86 mL/min (>60); Est Glom Filt Rate - Afr Amer 105 mL/min (>60); Globulin 3.9 g/dL (2.2-4.2); Glucose 103 mg/dL (74-106); Magnesium 2.1 mg/dL (1.6-2.6); Phosphorus 3.2 mg/dL (2.5-4.9); Potassium 3.2 mmol/L (3.5-5.1); Protein, Total 7.4 g/dL (6.4-8.2); Sodium Level 143 mmol/L (136-145)
== END | disposition home or self-care (01) ==
LOC: LAB 10:52
PROVIDERS: PCP Family Medicine Geriatric Medicine; Referring Provider Family Medicine Geriatric Medicine; Visit Provider Family Medicine Geriatric Medicine
DX: I10 Essential (primary) hypertension (principal); D64.9 Anemia, unspecified; E55.9 Vitamin D deficiency, unspecified; R25.3 Fasciculation
CPT/HCPCS: 36415; 80053; 82306; 82607; 82746; 83735; 84100; 84443; 85027

== ENCOUNTER 2024-09-01 09:16 | Emergency (ER) | payer MEDICARE, SELFPAY ==
[2024-09-01] VITALS (8 sets, daily range): BP systolic 137–153; BP diastolic 72–100; PULSE 75–118; RESP 13–20; TEMP 36.6–37.1; O2SAT 95–98; BMI 15.4
--- NOTE | 2024-09-01 09:39 | ED.VIS.DYS ---
HPI History of Present Illness Chief Complaint: Shortness of Breath PFSH PFS Medical History Wears partial dentures Post-menopausal Non-smoker Hyperlipidemia Senile osteoporosis IBS (irritable bowel syndrome) Diaphragmatic hernia Benign neoplasm of stomach Hypertension Home Medications ?Medication ?Instructions ?Recorded ?Last Taken ?Type buspirone 7.5 mg tablet 7.5 mg PO TID anxiety 09/01/24 08/31/24 History lorazepam 2 mg/mL oral concentrate 1 mg PO DAILY anxiety 09/01/24 08/31/24 History (Lorazepam Intensol) potassium chloride 20 mEq/15 mL 20 meq PO DAILY SUPPLEMENT 09/01/24 08/31/24 History oral liquid valsartan 320 1 tab PO DAILY blood pressure 09/01/24 08/31/24 History mg-hydrochlorothiazide 12.5 mg tablet Allergy/AdvReac Type Severity Reaction Status Date / Time No Known Allergies Allergy Verified 09/01/24 09:19 Family History Mother Cancer lung-smoker Father Colon cancer Surgical History History of Iron fundoplication Hx of dilation and curettage Hx of colonoscopy History of esophagogastroduodenoscopy (EGD) S/P cholecystectomy History of esophagogastroduodenoscopy (EGD) History of appendectomy Social History Smoking Status: Never smoker alcohol intake: never substance use type: does not use caffeine: No what type of physical activity do you participate in: walking frequency: 3-4 times per week seatbelt use: always do you feel safe at home: Yes additional social history: Patient is retired EXAM Physical Exam Const Vital Signs: 09/01/24 09:17 09/01/24 09:39 09/01/24 09:49 Temperature 97.9 F Temperature Source Temporal Pulse Rate 118 H Respiratory Rate 16 Respiratory Effort Short of Breath Blood Pressure 153/100 H Blood Pressure Mean 117 Pulse Ox 98 95 Oxygen Delivery Method Room Air Room Air 09/01/24 10:16 09/01/24 11:00 09/01/24 12:25 Temperature Temperature Source Pulse Rate 81 81 75 Respiratory Rate 13 13 19 H Respiratory Effort Blood Pressure 137/72 H Blood Pressure Mean 93 Pulse Ox 97 Oxygen Delivery Method 09/01/24 13:00 09/01/24 14:00 Temperature Temperature Source Pulse Rate 83 Respiratory Rate 18 Respiratory Effort Blood Pressure 141/83 H 152/88 H Blood Pressure Mean 102 109 Pulse Ox 98 Oxygen Delivery Method Room Air [facility] Narrative Medical decision making narrative: HISTORY OF PRESENT ILLNESS: 79-year-old female history of hypertension, hyperlipidemia and dysphagia presents concern for dyspnea. She notes has been ongoing for a couple of days. She notes he is also concerned about dehydration because he has not been drinking as much secondary to issues with swallowing. Denies chest pain. Denies cough fever chills. Denies leg swelling, orthopnea or paroxysmal nocturnal dyspnea. Denies any bleeding diathesis The patient denies recent surgery in the last 4 weeks or immobilization in the last 3 days, denies previous diagnosis of DVT or PE, hemoptysis, unilateral leg swelling or malignancy with treatment the last 6 months or palliative. No estrogen use noted. REVIEW OF SYSTEMS: Pertinent positives: Shortness of breath, difficulty swallowing Pertinent negatives: As per HPI PHYSICAL EXAM: Nursing triage notes reviewed, Vital signs reviewed Constitutional: please see [facility] HENT: MMM Eyes: Pupils equal round and reactive to light, Extraocular muscles intact Neck: No stridor, no JVD, full neck ROM Lungs: Clear to auscultation, No wheezing or rales. No increased work of breathing, no conversational dyspnea, no accessory muscle use, no nasal flaring. No respiratory distress noted Heart: Regular rate and rhythm, No murmurs, No rubs and No gallops, 2+ distal pulses (radial, femoral, posterior tibial) in all extremities Abdomen: Soft, there is no tenderness, rigidity, rebound or guarding, no obvious peritoneal signs, no palpable pulsatile abdominal masses, no auscultated abdominal bruit : No CVAT Extremities: No edema Neuro: No new focal neurological deficits, cranial nerves II through XII intact, 5/5 strength in all present extremities. Intact sensation to light touch in all present extremities, 2+ reflexes bilateral patella tendons. Skin: No rash or lesions noted MEDICAL DECISION MAKING: Chief Complaint: As per HPI External records reviewed: Reviewed prior cardiovascular testing. Reviewed prior imaging studies. Reviewed prior problem list, vital signs at home medications Factors affecting care: History of IBS, hyperlipidemia Social determinants of health: Denies current tobacco use History obtained from others: Family Consults: none [facility] Narrative: [The patient was initially hypertensive with a blood pressure 133/100, tachycardic with a heart rate of 118, she was saturating well on room air, she is afebrile. Exam I considered the following differential diagnosis: Pneumonia, COVID, flu, CHF, PE, ACS, arrhythmia, anemia I obtained a broad lab and imaging workup to further elucidate etiology of the patient's complaint Given 1 L normal saline for initial resuscitation ALL IMAGES (IF OBTAINED) HAVE BEEN PERSONALLY REVIEWED AND INTERPRETED BY MYSELF. EKG with normal sinus rhythm rate of 96, right axis deviation, no STEMI CBC without leukocytosis, severe anemia, no thrombocytopenia. BMP without evidence of significant electrolyte abnormalities, no anion gap, no acute kidney injury. High-sensitivity troponin is negative, no evidence of myocardial ischemiax3 I have personally reviewed the patient's chest x-ray. Chest x-ray is unremarkable for pulmonary edema, pneumothorax, pneumonia or focal cardiopulmonary abnormality. COVID/RSV/flu negative No clear etiology of patient's symptoms. Likely dehydration labs image suggest nothing life-threatening. Patient is appropriate for discharge home Upon reevaluation his heart rate improved to 81 The patient and/or family, caregivers express understanding. The patient and/or family, caregivers agrees with the plan. Shared decision making: I will have a discussion with the patient and or visitors regarding risk/benefits of further testing or admission. They will be made aware of of the risk/benefits inherent in this decision they will be given the opportunity to voice understanding. Total critical care time today provided was at least 0 minutes. This excludes separately billable procedures. Critical care time (if documented) is secondary to the patient having high probability of clinically significant/life threatening deterioration in the patient's condition which required my urgent intervention. Impression: 1. Dysphagia 2. Dehydration 3. Dyspnea Dispo: Discharge home This note was generated with [employer] [address] dictation software. It may contain incorrect words, spelling, and punctuation that were not noted in review of the chart prior to signing. Lab Data Labs: Laboratory Results - last 24 hr 09/01/24 09/01/24 09/01/24 09:55 11:36 13:25 WBC 5.7 RBC 4.78 Hgb 13.7 Hct 42.8 MCV 89.5 MCH 28.7 MCHC 32.0 RDW Std Deviation 48.4 H RDW Coeff of Danita 14.7 H Plt Count 229 MPV 11.7 Immature Gran % (Auto) 0.200 Neut % (Auto) 71.8 H Lymph % (Auto) 18.7 L [place] % (Auto) 6.8 Eos % (Auto) 1.1 Baso % (Auto) 1.4 H Absolute Neuts (auto) 4.1 Absolute Lymphs (auto) 1.07 Nucleated RBC % 0 Sodium 143 Potassium 3.8 Chloride 103 Carbon Dioxide 25.7 Anion Gap 14 BUN 19 Creatinine 0.94 Estim Creat Clear Calc 29.84 L Est GFR (MDRD) Non-Af 61 BUN/Creatinine Ratio 20.0 Glucose 123 H Calcium 10.2 Troponin T High Sens 22 H Troponin T Hi Sens 2 Hr 19 H Troponin T Hi Sens 4Hr 18 H Radiography Diagnostic Testing: Clinical Impression(s) from Imaging Studies Chest X-Ray 09/01/24 10:00 IMPRESSION: 1. No visible acute cardiopulmonary findings 2. Additional description as above. Reading Location: [facility] Discharge Plan Triage Chief Complaint: Shortness of Breath ED Provider: Girish Avila Dx/Rx/DC Orders Prescriptions: No Action potassium chloride 20 mEq/15 mL liquid 20 meq PO DAILY buspirone 7.5 mg tablet 7.5 mg PO TID lorazepam [Lorazepam Intensol] 2 mg/mL concentrate 1 mg PO DAILY valsartan-hydrochlorothiazide 320-12.5 mg tablet 1 tab PO DAILY Primary Care Provider: Calos Morrison Chi Referrals: Calos Morrison Chi, MD [Primary Care Provider] - Print Language: Indonesian
--- NOTE | 2024-09-01 09:49 | EKG12_ITS ---
Test Reason : SOB Blood Pressure : */* mmHG Vent. Rate : 96 BPM Atrial Rate : 96 BPM P-R Int : 150 ms QRS Dur : 72 ms QT Int : 368 ms P-R-T Axes : 72 265 41 degrees QTcB Int : 464 ms Normal sinus rhythm Right superior axis deviation Abnormal ECG Confirmed by CORINNE FERRARO, CHRISTOPHE ([id number]), graphics editor ELHAM JO ([id number]) on 09/02/2024 8:16:43 AM Referred By: Confirmed By: CHRISTOPHE SUN MD
[2024-09-01] MEDS: 0.9% Normal Saline (1000mL) 1,000 ML 999 ML IV (09:57)
--- NOTE | 2024-09-01 10:00 | RAD_ITS ---
PROCEDURE: CHEST 1 VIEW (PORTABLE) (RADCXPA_P), 09/01/2024 REASON FOR EXAM: SOB TECHNIQUE: A single portable AP view of the chest was obtained. COMPARISON: 03/03/2024 FINDINGS: Heart: Unremarkable. Mediastinum: Atherosclerosis. Lungs/pleura: Slight elevation of left hemidiaphragm is similar. No convincing focal consolidation. No sizeable pleural effusion or visible pneumothorax. Bones: Degenerative changes of the right shoulder. Suspect demineralization. Old right rib fractures. Lines and support devices: None. RAD/Chest 1 View (Portable) IMPRESSION: 1. No visible acute cardiopulmonary findings 2. Additional description as above. Reading Location: [id number]
[2024-09-01 10:13] LABS: Absolute Lymphocyte Count 1.07 X10^3/uL (0.83-4.51); Absolute Neutrophil Count 4.1 X10^3/uL (2.0-7.7); Basophil# 0.08 X10^3/uL; Basophil% 1.4 % (0-1); Eosinophil# 0.06 X10^3/uL; Eosinophils% 1.1 % (0-5); Hematocrit 42.8 % (37-47); Hemoglobin 13.7 g/dL (12.0-15.0); Lymphocyte # 1.07 X10^3/ul (0.83-4.51); Lymphocyte % 18.7 % (19-41); Mean Corpuscular Hgb 28.7 pg (27.0-32.0); Mean Corpuscular Volume 89.5 fL (81-99); Mean Platelet Vol. 11.7 fl (6.2-12.0); Monocyte# 0.39 X10^3/uL; Monocyte% 6.8 % (0-10); NRBC Flagged by Analyzer 0 % (0-5); Neutrophil % 71.8 % (47-70); Platelet Count 229 K/mm3 (150-450); RBC Distribution Width CV 14.7 % (11.6-14.6); RBC Distribution Width SD 48.4 fl (35.1-43.9); Red Blood Count 4.78 M/mm3 (4.2-5.4); White Blood Count 5.7 K/mm3 (4.4-11.0)
[2024-09-01 11:33] LABS: Anion Gap 14 (5-15); Calcium,Total 10.2 mg/dL (7.6-11.0); Carbon Dioxide 25.7 mmol/L (21.0-32.0); Chloride 103 mmol/L (98-108); Creatinine, Serum 0.94 mg/dL (0.70-1.20); EST Glomerular Filtration Rate 61 (>60); Estimated Creatinine Clearance 29.84 ml/min (50-250); Glucose 123 mg/dL (70-99); Potassium 3.8 mmol/L (3.3-5.1); Sodium Level 143 mmol/L (133-145)
[2024-09-01 11:46] LABS: BUN 19 mg/dL (4-19)
[2024-09-01 11:59] LABS: Troponin T High Sensitivity 22 ng/L (<=14)
[2024-09-01 12:36] LABS: Troponin T High Sens 2 HR 19 ng/L (<=14)
[2024-09-01 13:54] LABS: Troponin T High Sens 4 HR 18 ng/L (<=14)
== END 2024-09-01 15:04 | disposition home or self-care (01) ==
PROVIDERS: Emergency Provider Emergency Medicine; PCP Family Medicine Geriatric Medicine; Visit Provider Emergency Medicine
DX: R06.02 Shortness of breath (principal); E86.0 Dehydration; E78.5 Hyperlipidemia, unspecified; I10 Essential (primary) hypertension; R13.10 Dysphagia, unspecified; Z79.899 Other long term (current) drug therapy; Z90.49 Acquired absence of other specified parts of digestive tract
CPT/HCPCS: 71045; 80048; 84484; 85025; 87631; 93005; 96360; 99283; A4216

== ENCOUNTER 2024-09-29 18:15 | Emergency (ER) | payer MEDICARE, SELFPAY ==
[2024-09-29 18:16] VITALS: BP 149/91; PULSE 96; RESP 17; TEMP 36.5; O2SAT 97
[2024-09-29 18:47] LABS: Absolute Neutrophil Count 3.6 X10^3/uL (2.0-7.7); Basophil# 0.05 X10^3/uL; Basophil% 0.9 % (0-1); Eosinophil# 0.07 X10^3/uL; Eosinophils% 1.3 % (0-5); Hemoglobin 12.4 g/dL (12.0-15.0); Lymphocyte % 22.5 % (19-41); Mean Corp Hgb Conc 32.6 g/dL (32-36); Mean Corpuscular Volume 88.8 fL (81-99); Mean Platelet Vol. 12.2 fl (6.2-12.0); Monocyte# 0.39 X10^3/uL; Monocyte% 7.3 % (0-10); NRBC Flagged by Analyzer 0 % (0-5); Neutrophil # 3.61 X10^3/uL (2.7-7.7); Neutrophil % 67.6 % (47-70); Platelet Count 219 K/mm3 (150-450); RBC Distribution Width CV 14.1 % (11.6-14.6); RBC Distribution Width SD 45.5 fl (35.1-43.9); Red Blood Count 4.28 M/mm3 (4.2-5.4); White Blood Count 5.3 K/mm3 (4.4-11.0)
[2024-09-29 19:01] LABS: Lipase 24 U/L (13-75)
[2024-09-29 19:02] LABS: ALB/GLOB Ratio 1.5 RATIO (0.9-2.4); AST(SGOT) 27 U/L (<=31); Alanine Aminotransfer ALT/SGPT 13 U/L (<=34); Albumin, Serum 4.2 g/dL (3.4-4.8); Alkaline Phosphatase 61 U/L (35-104); Anion Gap 10 (5-15); BUN 19 mg/dL (4-19); BUN/Creat Ratio 20.6 RATIO (10-20); Calcium,Total 9.5 mg/dL (7.6-11.0); Carbon Dioxide 28.3 mmol/L (21.0-32.0); Chloride 103 mmol/L (98-108); Creatinine, Serum 0.92 mg/dL (0.70-1.20); EST Glomerular Filtration Rate 63 (>60); Globulin 2.8 g/dL (2.2-4.2); Glucose 144 mg/dL (70-99); Potassium 3.5 mmol/L (3.3-5.1); Protein, Total 6.9 g/dL (5.9-8.4); Sodium Level 142 mmol/L (133-145); Total Bilirubin 0.58 mg/dL (0.00-1.30)
[2024-09-29 20:15] VITALS: BP 156/119; PULSE 82; RESP 18; O2SAT 98
[2024-09-29 20:16] LABS: Bacteria 0 SEEN /hpf (None Seen)
[2024-09-29 20:17] VITALS: BMI 13.8
--- NOTE | 2024-09-29 20:22 | CT_ITS ---
PROCEDURE: ABDOMEN/PELVIS W IV CONT ONLY 09/29/2024 REASON FOR EXAM: ABDOMINAL PAIN TECHNIQUE: Abdomen and pelvis CT with intravenous contrast. Coronal and Sagittal reconstruction series were provided. PATIENT PREPARATION: Per protocol ORAL CONTRAST TYPE: None. AMOUNT: mL CONTRAST: Isovue 370 VOLUME: 75 mL Not Provided Gauge IV One or more dose reduction techniques were used (e.g., Automated exposure control, adjustment of the mA and/or kV according to patient size, use of iterative reconstruction technique. RADIATION DOSE SUMMARY: CTDlvol: 24 mGy DLP: 224 mGycm COMPARISON: CT of the abdomen and pelvis dated 03/03/2024 FINDINGS: Lung bases: Unremarkable Liver: Mild intrahepatic ductal dilatation. Gallbladder: Surgically absent. Post cholecystectomy dilatation of the common bile duct, no obstructing stone is visualized radiographically. Spleen: Normal size. Pancreas: Normal size without evidence of mass surrounding inflammation or ductal dilation. Adrenals: Unremarkable Kidneys: Multiple bilateral benign-appearing renal cysts. No evidence of hydronephrosis or nephrolithiasis. Bladder: Decompressed urinary bladder. Reproductive Organs: Prior hysterectomy. Adnexal regions are unremarkable. Bowel: Evaluation of the bowel loops are limited due to lack of oral contrast. The stomach is grossly unremarkable. No inflammatory changes of the small bowel. Mild stool burden within the large bowel, particularly within the right colon and rectal chamber, concerning for stool impaction. Sigmoid diverticulosis with suspected wall thickening, concerning for acute diverticulitis. Appendix: The appendix is not clearly visualized. Lymph nodes: No lymphadenopathy. Vasculature: Atherosclerotic calcification of the abdominal aorta and branches. Peritoneum / Retroperitoneum: No free air or free fluid. Bones: Unremarkable CT/Abdomen/Pelvis W IV Cont ONLY IMPRESSION: Suspected acute diverticulitis of the sigmoid colon. No abscess formation. No free air. Mild stool burden with stool impaction within the rectal chamber. Please see other findings as described above. Reading Location: [facility]
--- NOTE | 2024-09-29 20:23 | EDS_ITS ---
HPI History of Present Illness Chief Complaint: Abd Pain Informant: patient Onset/Context/Timing Onset: Today Context: Sudden Onset Timing: Continuous Quality: Sharp Location: Diffuse across her abdomen Worsened by: Nothing Relieved by: Nothing Narrative Narrative: Patient presents with abdominal pain that began today. Patient states it began when she woke up today. Patient states her pain is diffuse across her entire abdomen. Patient describes it as sharp. Patient states nothing makes it better nothing makes it worse. Patient denies any nausea or vomiting. Patient denies any diarrhea, melena, or hematochezia. Patient states her pain does radiate into her back. Patient denies any dysuria, frequency, or hematuria. [facility] Medical History (Updated 09/29/24 @ 22:[address] Rodney Duran, DO) ALS (amyotrophic lateral sclerosis) Wears partial dentures Post-menopausal Non-smoker Hyperlipidemia Senile osteoporosis IBS (irritable bowel syndrome) Diaphragmatic hernia Benign neoplasm of stomach Hypertension Home Medications ?Medication ?Instructions ?Recorded ?Last Taken ?Type buspirone 7.5 mg tablet 7.5 mg PO TID anxiety 08/31/24 History lorazepam 2 mg/mL oral concentrate 1 mg PO DAILY anxie ty 09/01/24 08/31/24 History (Lorazepam Intensol) potassium chloride 20 mEq/15 mL 20 meq PO DAILY SUPPLE MENT 09/01/24 08/31/24 History oral liquid valsartan 320 1 tab PO DAILY blood pressur e 09/01/24 08/31/24 History mg-hydrochlorothiazide 12.5 mg tablet amoxicillin 875 mg-potassium 875 mg PO Q12H #20 TABLET S 09/29/24 Unknown Rx clavulanate 125 mg tablet riluzole 50 mg tablet 50 mg PO BID 09/29/24 Unknow n History Allergy/AdvReac Type Severity Reaction Status Date / Time No Known Allergies Allergy Verified 09/29/24 18:18 Family History Mother Cancer lung-smoker Father Colon cancer Surgical History History of Iron fundoplication Hx of dilation and curettage Hx of colonoscopy History of esophagogastroduodenoscopy (EGD) S/P cholecystectomy History of esophagogastroduodenoscopy (EGD) History of appendectomy Social History Smoking Status: Never smoker alcohol intake: never substance use type: does not use caffeine: No what type of physical activity do you participate in: walking frequency: 3-4 times per week seatbelt use: always do you feel safe at home: Yes additional social history: Patient is retired ROS ROS ED Constitutional Constitutional ED: Denies chills or fever(s) Eyes Eyes: Denies blurry vision or change in vision ENT ENT ED: Denies rhinorrhea or sore throat Cardiovascular Cardiovascular: Denies chest pain or palpitations Respiratory/Chest Respiratory/Chest: Denies cough or dyspnea Gastrointestinal Gastrointestinal: Reports abdominal pain; Denies nausea or vomiting Genitourinary Genitourinary ED: Denies dysuria or hematuria Musculoskeletal Musculoskeletal: Reports back pain; Denies neck pain Integumentary Denies abscess or rash Neurologic Neurologic: Denies headache(s) or weakness Allergic/Immunologic Allergic/Immunologic ED: Denies mouth swelling or urticaria EXAM Physical Exam Const Vital Signs: 09/29/24 18:16 09/29/24 20:15 Temperature 97.7 F L Temperature Source Temporal Pulse Rate 96 82 Respiratory Rate 17 18 Blood Pressure 149/91 H 156/119 H Blood Pressure Mean 110 131 Pulse Ox 97 98 Oxygen Delivery Method Room Air Room Air Positive well nourished and well developed General Appearance ED: well developed and NAD HEENT Reports moist mucous membranes Neck supple and no JVD Resp normal respiratory effort and clear to auscultation bilaterally Cardio regular rate and regular rhythm GI non-distended Palpation: soft and tender epigastric, LLQ, RLQ, LUQ, RUQ, periumbilical and suprapubic; Negative for guarding or rebound tenderness present Neuro oriented x3, CN's II-XII intact bilaterally and no sensory deficits noted Sensorium / Orientation: alert Motor Exam: strength 5/5 throughout Psych mental status grossly normal MDM MDM MDM Narrative Medical decision making narrative: Differential diagnosis includes bowel obstruction, perforation, electrolyte abnormality, diverticulitis, colitis, urinary tract infection, and pancreatitis. CBC will be obtained to assess for leukocytosis and anemia. Comprehensive metabolic profile will be obtained to assess for hepatic function, renal function, and electrolyte abnormality. Lipase will be obtained to assess for pancreatitis. Urinalysis will be obtained to assess for urinary tract infection. CT scan of the abdomen and pelvis will be obtained to assess for bowel obstruction, perforation, diverticulitis, and colitis. Lab Data Attestation: I reviewed the patient's lab results. Lab results narrative: CBC was reviewed and was within normal limits. Comprehensive metabolic profile was reviewed. Glucose was mildly elevated at 144. The remainder is within normal limits. Lipase was reviewed and was normal at 24. Urinalysis was reviewed. There is no evidence of urinary tract infection or hematuria. Labs: Laboratory Results - last 24 hr 09/29/24 18:22 WBC 5.3 RBC 4.28 Hgb 12.4 Hct 38.0 MCV 88.8 MCH 29.0 MCHC 32.6 RDW Std Deviation 45.5 H RDW Coeff of Danita 14.1 Plt Count 219 MPV 12.2 H Immature Gran % (Auto) 0.400 Neut % (Auto) 67.6 Lymph % (Auto) 22.5 Mcclain % (Auto) 7.3 Eos % (Auto) 1.3 Baso % (Auto) 0.9 Absolute Neuts (auto) 3.6 Absolute Lymphs (auto) 1.20 Nucleated RBC % 0 Sodium 142 Potassium 3.5 Chloride 103 Carbon Dioxide 28.3 Anion Gap 10 BUN 19 Creatinine 0.92 Est GFR (MDRD) Non-Af 63 BUN/Creatinine Ratio 20.6 H Glucose 144 H Calcium 9.5 Total Bilirubin 0.58 AST 27 ALT 13 Alkaline Phosphatase 61 Total Protein 6.9 Albumin 4.2 Globulin 2.8 Albumin/Globulin Ratio 1.5 Lipase 24 Radiography Diagnostic Testing: CT scan of the abdomen and pelvis was obtained. There is diverticulitis of the sigmoid colon. There is no abscess. There is no free air. There is mild stool burden with stool impaction within the rectal chamber. This was interpreted by the radiologist and was also independently reviewed by myself. Treatment and Re-Evaluation :: Patient was given morphine and Zofran. Patient was advised of her findings. Patient was given a dose of Augmentin here. Patient was given a prescription for Augmentin. Patient states she would prefer to take laxatives at home. Patient was encouraged to use [id number] laxatives as needed for constipation. Patient was instructed to follow-up with her primary care physician in 5 to 7 days. Patient was instructed return if worse in any way. Patient understood and was agreeable with the plan. All questions were answered. Discharge Plan Triage Chief Complaint: Abd Pain ED Provider: Rodney Duran Dx/Rx/DC Orders Clinical Impression: Diverticulitis, Constipation Instructions: ED Constipation (Adult), ED Diverticulitis Prescriptions: New amoxicillin-pot clavulanate 875-125 mg tablet 875 mg PO Q12H Qty: 20 0RF No Action potassium chloride 20 mEq/15 mL liquid 20 meq PO DAILY buspirone 7.5 mg tablet 7.5 mg PO TID lorazepam [Lorazepam Intensol] 2 mg/mL concentrate 1 mg PO DAILY valsartan-hydrochlorothiazide 320-12.5 mg tablet 1 tab PO DAILY riluzole 50 mg tablet 50 mg PO BID Primary Care Provider: Calos Morrison Chi Referrals: Calos Morrison Chi, MD [Primary Care Provider] - 5-7 Days Print Language: Tamazight Disposition Disposition: Home, Self Care
[2024-09-29] MEDS: Ondansetron 4 MG/2 ML Vial IV (20:26)
[2024-09-29] MEDS: Morphine 4 MG/ML Syringe IV (20:26)
[2024-09-29 20:49] LABS: Color, Urine Yellow (Yellow); Glucose, Dipstick Normal (Normal); Ketone-Dipstick 15 mg/dl (Negative); Leukocyte Esterase-Dipstick 25 /ul (Negative); Nitrite-Dipstick Negative (Negative); Occult Blood-Urine 10 /ul (Negative); Protein-Dipstick 30 mg/dl (Negative); Specific Gravity, Urine 1.025 (1.002-1.030); Urine Bilirubin Dipstick Negative (Negative); Urine Clarity Clear (Clear); Urine Urobilinogen Normal (Normal)
[2024-09-29 21:10] LABS: Red Blood Cells-Urine 0-5 SEEN /hpf (0-5); Squamous Epithelial Cells - UA 0-5 SEEN /hpf (5-10); White Blood Cells 0-5 SEEN /hpf (0-5)
[2024-09-29 21:11] LABS: Calcium Oxalate Crystals Ur 2+ /hpf (<or=2+)
[2024-09-29 21:12] LABS: Fine Granular Cast- Urine 0-5 SEEN /lpf (0-5); Hyaline Cast 0-5 SEEN /lpf (0-5); Mucous, Urine 1+ /hpf (<or=2+)
[2024-09-29 22:00] VITALS: BP 186/99; PULSE 77; RESP 18; O2SAT 92
[2024-09-29 22:17] VITALS: BP 186/99; PULSE 65; RESP 17; TEMP 36.6; O2SAT 92
[2024-09-29] MEDS: Amox/Clavulanate 875 MG Tablet PO (22:21)
== END 2024-09-29 22:24 | disposition home or self-care (01) ==
PROVIDERS: Emergency Provider Emergency Medicine; PCP Family Medicine Geriatric Medicine; Visit Provider Emergency Medicine
DX: K57.32 Diverticulitis of large intestine without perforation or abscess without bleeding (principal); K56.41 Fecal impaction; I10 Essential (primary) hypertension; Z79.899 Other long term (current) drug therapy
CPT/HCPCS: 74177; 80053; 81001; 83690; 85025; 96374; 96375; 99285; Q9967; A4216; J2405

== ENCOUNTER → 2024-10-01 | Outpatient (CLI) | payer MEDICARE, SELFPAY ==
[2024-10-01 15:31] LABS: Anion Gap 11 (5-15); BUN 18 mg/dL (4-19); Calcium,Total 9.8 mg/dL (7.6-11.0); Carbon Dioxide 28.8 mmol/L (21.0-32.0); Chloride 103 mmol/L (98-108); Creatinine, Serum 0.82 mg/dL (0.70-1.20); EST Glomerular Filtration Rate 73 (>60); Glucose 103 mg/dL (70-99); Potassium 3.7 mmol/L (3.3-5.1); Sodium Level 142 mmol/L (133-145)
[2024-10-01 15:46] LABS: FOLATES,SERUM (FOLIC ACID) 6.52 ng/mL (4.60-34.80)
[2024-10-01 16:08] LABS: HIV Nonreactive (Nonreactive); Syphilis Antibodies Nonreactive (Nonreactive)
[2024-10-01 17:18] LABS: Vitamin B12 > 4000 pg/mL (180-914)
== END | disposition home or self-care (01) ==
LOC: LAB 13:28
PROVIDERS: Psychiatry & Neurology Neurology; PCP Family Medicine Geriatric Medicine; Referring Provider Family Medicine Geriatric Medicine; Visit Provider Family Medicine Geriatric Medicine
DX: I10 Essential (primary) hypertension (principal); G12.20 Motor neuron disease, unspecified; G95.9 Disease of spinal cord, unspecified
CPT/HCPCS: 36415; 80048; 82525; 82607; 82746; 83921; 86617; 86703; 86780